=== PATIENT | female | born 1980 | race Caucasian/White ===

== ENCOUNTER 2017-09-21 10:46 | Emergency (ER) | payer OTHER, SELFPAY ==
[2017-09-21 12:13] VITALS: BP 143/89; PULSE 104; RESP 20; TEMP 36.9; O2SAT 97; BMI 32.9
[2017-09-21 12:24] LABS: UTC Influenza A Antigen Positive (Negative); UTC Influenza B Antigen Negative (Negative)
--- NOTE | 2017-09-21 12:27 | HMH.EDUTC ---
[facility] [place] Impression: Influenza Disposition: Home, Self-Care Condition on Discharge: Good Instructions: Influenza, Cough Additional Instructions: ? Start Tamiflu today if you are going to take it. Discussed risk and possible benefits. ? Lots of rest ? Increase Fluids water, Gatorade, powerade, pedialyte,if /toddler/child ? Alternate Tylenol and / or ibuprofen as discussed for fever, aches, chills x 24 hours without medication for symptoms ? Follow up IMMEDIATELY for new or worsening Symptoms OR no noticeable improvement over the next 48-72 hours, 911 for difficulty or breathing ? You or your child area contagious until no fever, aches, chills for 24 hours with medication for symptoms Prescriptions: Brompheniramine/Pseudoephed/Dm [Bromfed DM Cough Syrup 5mL] 10 ml PO Q4H PRN #200 syrup PRN Reason: Cough Oseltamivir Phosphate [Tamiflu 75mg Capsule] 75 mg PO BID #10 capsule Referrals: Alesia Nelson APRN [Primary Care Provider] - Time of Disposition: 12:41 Medical Decision Making Vital Signs: 09/21/17 12:13 Temperature 98.5 F Temperature Source Temporal Artery Scan Pulse Rate [Right] 104 H Respiratory Rate 20 Blood Pressure [Right Arm] 143/89 Blood Pressure Mean [Right Arm] 107 Blood Pressure Source [Right Arm] Automatic Cuff Blood Pressure Position [Right Arm] Sitting 02 Sat by Pulse Oximetry 97 Oxygen Delivery Method Room Air - Lab Data Lab Results 09/21/17 12:23: Influenza Type A Ag Positive A, Influenza Type B Ag Negative - Timothy Inquiry Pt receiving controlled substance: No Timothy was queried for this patient: No [facility] [place] - General Stated complaint: sore throat headache aches Mode of Arrival: Family Vehicle Source of Information: Patient Limitations: No Limitations Description of Symptoms (Recalled from Triage Doc. by RN): COUGH, CONGESTION X2 DAYS HEENT Symptoms (Recalled from RN notes): Yes Resp Symptoms (Recalled from RN notes): No Skin Symptoms (Recalled from RN notes): No MS Symptoms (Recalled from RN notes): No Functional Status (Recalled from RN notes): NA - History of Present Illness Provider Complaint: Patient states that she has been taking care of her parents for the last 3 days that have had the flu States that she is now having flu like symptoms also Severity: mild Severity scale (1-10): 1 Relieving factors: none Exacerbating factors: none Treatments prior to arrival: NSAID - Related Data Previous Rx's Medication Instructions Recorded Brompheniramine/Pseudoephed/Dm 10 ml PO Q4H PRN #200 syrup 09/21/17 [Bromfed DM Cough Syrup 5mL] Oseltamivir Phosphate [Tamiflu 75 mg PO BID #10 capsule 09/21/17 75mg Capsule] Allergies Allergy/AdvReac Type Severity Reaction Status Date / Time No Known Allergies Allergy Unknown Uncoded 09/06/17 14:05 - Worker's Comp Is this a Worker's Comp case?: No [facility] History - *Social History Alcohol Intake: never - Psychiatric History Expresses thoughts of harming self/others: None Suicide Plan Description: No Plan - Constitutional Reports chills, Reports fever(s) - ENT Reports nasal congestion - Respiratory Reports cough Physical Exam - General General appearance: alert, in no apparent distress - Expanded ENT Exam Comment: Throat red, irritated drainage noted - Respiratory Respiratory exam: Present: normal lung sounds bilaterally. Absent: respiratory distress - Cardiovascular Cardiovascular exam: Present: regular rate, normal rhythm. Absent: JVD - Neurological Exam Neurological exam: Present: alert, oriented X3
--- NOTE | 2017-09-21 12:33 | ED_ITS ---
[facility] [place]: [place]enza Disposition: Home, Self-Care Condition on Discharge: Good Instructions: Influenza, Cough Additional Instructions: ? Start Tamiflu today if you are going to take it. Discussed risk and possible benefits. ? Lots of rest ? Increase Fluids water, Gatorade, powerade, pedialyte,if /toddler/child ? Alternate Tylenol and / or ibuprofen as discussed for fever, aches, chills x 24 hours without medication for symptoms ? Follow up IMMEDIATELY for new or worsening Symptoms OR no noticeable improvement over the next 48-72 hours, 911 for difficulty or breathing ? You or your child area contagious until no fever, aches, chills for 24 hours with medication for symptoms Prescriptions: Brompheniramine/Pseudoephed/Dm [Bromfed DM Cough Syrup 5mL] 10 ml PO Q4H PRN # 200 syrup PRN Reason: Cough Oseltamivir Phosphate [Tamiflu 75mg Capsule] 75 mg PO BID #10 capsule Referrals: Alesia Nelson APRN [Primary Care Provider] - Time of Disposition: 12:41 Medical Decision Making Vital Signs: 09/21/17 12:13 Temperature 98.5 F Temperature Source Temporal Artery Scan Pulse Rate [Right] 104 H Respiratory Rate 20 Blood Pressure [Right Arm] 143/89 Blood Pressure Mean [Right Arm] 107 Blood Pressure Source [Right Arm] Automatic Cuff Blood Pressure Position [Right Arm] Sitting 02 Sat by Pulse Oximetry 97 Oxygen Delivery Method Room Air - Lab Data Lab Results 09/21/17 12:23: Influenza Type A Ag Positive A, Influenza Type B Ag Negative - Timothy Inquiry Pt receiving controlled substance: No Timothy was queried for this patient: No [facility] [place] - General Stated complaint: sore throat headache aches Mode of Arrival: Family Vehicle Source of Information: Patient Limitations: No Limitations Description of Symptoms (Recalled from Triage Doc. by RN): COUGH, CONGESTION X2 DAYS HEENT Symptoms (Recalled from RN notes): Yes Resp Symptoms (Recalled from RN notes): No Skin Symptoms (Recalled from RN notes): No MS Symptoms (Recalled from RN notes): No Functional Status (Recalled from RN notes): NA - History of Present Illness Provider Complaint: Patient states that she has been taking care of her parents for the last 3 days that have had the flu States that she is now having flu like symptoms also Severity: mild Severity scale (1-10): 1 Relieving factors: none Exacerbating factors: none Treatments prior to arrival: NSAID - Related Data Previous Rx's Medication Instructions Recorded Brompheniramine/Pseudoephed/Dm 10 ml PO Q4H PRN #200 syrup 09/21/17 [Bromfed DM Cough Syrup 5mL] Oseltamivir Phosphate [Tamiflu 75 mg PO BID #10 capsule 09/21/17 75mg Capsule] Allergies Allergy/AdvReac Type Severity Reaction Status Date / Time No Known Allergies Allergy Unknown Uncoded 09/06/17 14:05 - Worker's Comp Is this a Worker's Comp case?: No [facility] History - *Social History Alcohol Intake: never - Psychiatric History Expresses thoughts of harming self/others: None Suicide Plan Description: No Plan - Constitutional Reports chills, Reports fever(s) - ENT Reports nasal congestion - Respiratory Reports cough Physical Exam - General General appearance: alert, in no apparent distress - Expanded EN
[2017-09-21 12:57] VITALS: BP 145/76; PULSE 78; RESP 16; O2SAT 97
== END 2017-09-21 12:58 | disposition home or self-care (01) ==
PROVIDERS: Emergency Provider Nurse Practitioner; PCP Nurse Practitioner
DX: J10.1 Influenza due to other identified influenza virus with other respiratory manifestations (principal)
CPT/HCPCS: 87276; 87804; 99202

== ENCOUNTER → 2018-07-19 14:37 | Outpatient (CLI) | payer BC, SELFPAY ==
--- NOTE | 2018-07-19 14:44 | CT_ITS ---
CT abdomen pelvis w con CLINICAL INDICATION: Right lower quadrant pain, right flank pain ITS.REASON: RT QUAD/FLANK PAIN ORDERING PHYSICIAN: Alesia Nelson PATIENT AGE: 38 years COMPARISON: None TECHNIQUE: Axial images obtained with sagittal and coronal reformats. All CT scans at the facility use one or more dose reduction, viz: automated exposure control, ma/kV adjustment per patient size (including targeted exams where dose is matched to indication, i.e. head), or iterative reconstruction technique. PROCEDURE: Oral Contrast: None IV Contrast: 75 mL's of Isovue-370. FINDINGS: Lung bases are clear. There is a 5 mm hypodensity in the right hepatic lobe medially and an ill-defined 9 mm area of decreased attenuation in the left hepatic lobe laterally. The latter area is in region of the fissure for the ligamentum teres and could be due to focal fatty infiltration. Spleen, adrenal glands, pancreas, and kidneys have an unremarkable appearance. No radiopaque gallstones are evident. No evidence of appendicitis. No intestinal obstruction or free air. Is a 2.4 cm area of decreased attenuation in the right aspect of the lower uterine segment of the cervix and could be related to a fibroid. Pelvic ultrasound may confirm. No abnormal fluid collections or focal inflammatory change in the pelvis. There is a Schmorl's node in the superior endplate of L1. IMPRESSION: 1. No acute abdominal or pelvic findings. 2. Incidental nonacute findings as detailed above 3. Possible fibroid of the lower uterine segment on the right which may be confirmed with ultrasound
== END ==
PROVIDERS: PCP Nurse Practitioner; Visit Provider Nurse Practitioner
DX: R10.31 Right lower quadrant pain (principal); R10.11 Right upper quadrant pain
CPT/HCPCS: 74177; Q9967

== ENCOUNTER 2018-10-06 10:52 | Outpatient (CLI) | payer BC, SELFPAY ==
[2018-10-06 11:20] VITALS: BP 146/86; PULSE 68; RESP 20; TEMP 36.9; O2SAT 95
[2018-10-06 12:20] VITALS: BP 142/82; PULSE 91; RESP 20; TEMP 36.9; O2SAT 95
[2018-10-06 13:20] VITALS: BP 140/78; PULSE 99; RESP 20
== END 2018-10-06 13:25 | disposition home or self-care (01) ==
LOC: INF 10:54
PROVIDERS: PCP Family Medicine; Visit Provider Nurse Practitioner Family
DX: E86.0 Dehydration (principal)
CPT/HCPCS: 96360; 96361

== ENCOUNTER → 2018-10-09 11:13 | Outpatient (CLI) | payer BC, SELFPAY ==
[2018-10-09 12:11] LABS: Basophils # 0.1 K/mm3 (0-0.2); Basophils % 0.8 % (0.1-2.0); Eosinophils # 0.2 K/mm3 (0.0-0.4); Eosinophils % 1.9 % (0.1-12.0); Hematocrit 41.7 % (37.0-47.0); Lymphocytes # 1.3 K/mm3 (0.7-4.5); Lymphocytes % 15.8 % (10-50); Mean Corpuscular HGB Conc 31.2 g/dL (31.8-35.4); Mean Corpuscular Hemoglobin 27.4 pg (27.0-31.2); Mean Corpuscular Volume 87.9 fl (81-99); Monocytes # 0.5 K/mm3 (0.1-1.0); Monocytes % 5.9 % (1.7-9.3); Neutrophils # 6.1 K/mm3 (1.8-7.8); Neutrophils % 75.7 % (37.0-80.0); Platelet Count 333 K/mm3 (142-424); Red Blood Count 4.75 M/mm3 (4.20-5.40); Red Cell Distribution Width 14.8 % (11.5-17.5); White Blood Count 8.1 K/mm3 (4.8-10.8)
[2018-10-09 12:48] LABS: Alanine Aminotransferase 27 U/L (12-78); Albumin Level 3.9 gm/dL (3.4-5.0); Albumin/Globulin Ratio 1.1 (1.1-1.8); Alkaline Phosphatase 85 U/L (46-116); Anion Gap 14.5 mEq/L (5-15); Aspartate Amino Transferase 11 U/L (15-37); Bilirubin,Total 0.4 mg/dL (0.2-1.0); Blood Urea Nitrogen 15 mg/dL (7-18); Calcium 8.9 mg/dL (8.5-10.1); Carbon Dioxide 26 mmol/L (21.0-32.0); Chloride 103 mmol/L (98-107); Creatinine,Serum 0.77 mg/dL (0.55-1.02); Estimated Glomerular Filt Rate 84 ml/min (>60); GFR (African American) 102 ML/MIN (>60); Globulin 3.6 gm/dl (1.3-3.2); Glucose 94 mg/dL (74-106); Potassium 4.5 mmoL/L (3.5-5.1); Sodium 139 mmol/L (136-145); Total Protein,Serum 7.5 gm/dL (6.4-8.2)
[2018-10-10 08:29] LABS: Adenovirus F 40/41, stool Not Detected (NotDetected); Astrovirus Not Detected (NotDetected); Campylobacter Not Detected (NotDetected); Clostridium Difficile A/B, PCR Not Detected (NotDetected); Cryptosporidium Not Detected (NotDetected); Cyclospora Cayetanesis Not Detected (NotDetected); Entamoeba histolytica Not Detected (NotDetected); Enteroaggregative E coli Not Detected (NotDetected); Enteropathogenic E coli Not Detected (NotDetected); Enterotoxigenic E coli Not Detected (NotDetected); Giardia lamblia Not Detected (NotDetected); Norovirus Not Detected (NotDetected); Plesimonas Shigalloides, PCR Not Detected (NotDetected); Rotavirus A Not Detected (NotDetected); Salmonella, PCR Not Detected (NotDetected); Sapovirus Not Detected (NotDetected); Shiga-like toxin E coli Not Detected (NotDetected); Shigella Enterovasive E coli Not Detected (NotDetected); Vibrio Cholerae Not Detected (NotDetected); Vibrio, PCR Not Detected (NotDetected); Yersinia Entercolitica, PCR Not Detected (NotDetected)
== END ==
PROVIDERS: Visit Provider Nurse Practitioner Family
DX: R19.7 Diarrhea, unspecified (principal); R11.2 Nausea with vomiting, unspecified
CPT/HCPCS: 36415; 80053; 85025; 87507

== ENCOUNTER → 2018-10-09 20:20 | Outpatient (CLI) | payer BC, SELFPAY | PROVIDERS: Visit Provider Nurse Practitioner Family | DX: R19.7 Diarrhea, unspecified (principal) ==

== ENCOUNTER → 2018-10-12 08:18 | Outpatient (CLI) | payer BC, SELFPAY ==
--- NOTE | 2018-10-12 08:27 | US_ITS ---
US abdomen limited History:Right-sided abdominal pain, nausea and vomiting after eating Ordering Physician:Alesia Nelson Patient Age: 38 years Comparison:None Findings: Pancreas:Unremarkable. No obvious mass or abnormal fluid collection. No ductal dilatation Liver:No focal liver lesions demonstrated. Homogeneous echogenicity. No intrahepatic biliary ductal dilatation evident Right Kidney:Unremarkable. Normal size and echogenicity. No hydronephrosis Gallbladder:No gallstones, gallbladder wall thickening, pericholecystic fluid, or biliary dilatation. Impression:Negative gallbladder/right upper quadrant ultrasound
== END ==
PROVIDERS: PCP Nurse Practitioner; Visit Provider Nurse Practitioner
DX: R19.7 Diarrhea, unspecified (principal); R11.2 Nausea with vomiting, unspecified
CPT/HCPCS: 76705

== ENCOUNTER → 2018-11-01 09:03 | Outpatient (CLI) | payer BC, SELFPAY ==
--- NOTE | 2018-11-01 09:08 | US_ITS ---
US transvaginal HISTORY: Pelvic pain, dysfunctional uterine bleeding, abnormal CT scan of 07/19/2018 suggesting a fibroid ITS.REASON: DUB ORDERING PHYSICIAN: Swapna Moore PATIENT AGE: 38 years Comparison: 07/19/2018 FINDINGS: The uterus is anteverted. Endometrium is upper normal in thickness at 11 mm. The uterus measures 8 x 5 x 5 cm. There are multiple nabothian cysts which may account for the abnormality noted on the CT scan. No obvious uterine mass. The right ovary is 2.5 x 2.8 x 1.8 cm and contains a 15 mm follicle. The left ovary is 3 x 1.8 cm and contains a 10 mm follicle. No cul-de-sac fluid evident. IMPRESSION: 1. Endometrial thickness upper limits of normal. 2. Nabothian cysts. 3. Small bilateral ovarian follicular cysts
--- NOTE | 2018-11-01 09:08 | NM_ITS ---
NM hepatobiliary wo pharm HISTORY: Nausea and vomiting with right upper quadrant pain ITS.REASON: N/V , RUQ PAIN ORDERING PHYSICIAN: Swapna Moore PATIENT AGE: 38 years COMPARISON: None DOSE: 8.62 mCi technetium Choletec. 1.9 mcg of CCK. No pain reported with CCK. FINDINGS: Homogeneous activity is present within the hepatic parenchyma. Activity is present in the gallbladder by 10 minutes. Activity is present in the small bowel by 10 minutes. The gallbladder ejection fraction is calculated to be percent The patient did not report pain or other symptoms during CCK infusion. IMPRESSION: Unremarkable hepatobiliary scan and gallbladder ejection fraction. No evidence of common or cystic duct obstruction with normal gallbladder ejection fraction
== END ==
PROVIDERS: PCP Nurse Practitioner Family; Visit Provider Nurse Practitioner Family
DX: R11.2 Nausea with vomiting, unspecified (principal); R10.11 Right upper quadrant pain; N93.9 Abnormal uterine and vaginal bleeding, unspecified
CPT/HCPCS: 76830; 78226; A9537

== ENCOUNTER → 2018-11-20 14:46 | Outpatient (CLI) | payer BC, SELFPAY ==
[2018-11-20 14:51] LABS: Microscopic, Urine URINE MICROSCOPIC (MICROSCOPIC)
[2018-11-20 15:04] LABS: Basophils # 0.1 K/mm3 (0-0.2); Basophils % 0.9 % (0.1-2.0); Eosinophils # 0.2 K/mm3 (0.0-0.4); Eosinophils % 1.7 % (0.1-12.0); Hematocrit 39.9 % (37.0-47.0); Hemoglobin 12.8 g/dL (12.2-16.2); Lymphocytes # 1.9 K/mm3 (0.7-4.5); Lymphocytes % 18.7 % (10-50); Mean Corpuscular Hemoglobin 27.8 pg (27.0-31.2); Mean Corpuscular Volume 86.9 fl (81-99); Mean Platelet Volume 8.4 fl (7.4-10.4); Monocytes # 0.6 K/mm3 (0.1-1.0); Monocytes % 6.3 % (1.7-9.3); Neutrophils # 7.2 K/mm3 (1.8-7.8); Neutrophils % 72.4 % (37.0-80.0); Platelet Count 316 K/mm3 (142-424); Red Blood Count 4.59 M/mm3 (4.20-5.40); Red Cell Distribution Width 13.9 % (11.5-17.5)
[2018-11-20 15:59] LABS: Alanine Aminotransferase 26 U/L (12-78); Albumin Level 3.6 gm/dL (3.4-5.0); Alkaline Phosphatase 87 U/L (46-116); Anion Gap 13.2 mEq/L (5-15); Aspartate Amino Transferase 7 U/L (15-37); Bilirubin,Total 0.2 mg/dL (0.2-1.0); Blood Urea Nitrogen 19 mg/dL (7-18); Calcium 9.4 mg/dL (8.5-10.1); Carbon Dioxide 28 mmol/L (21.0-32.0); Chloride 106 mmol/L (98-107); Creatinine,Serum 0.74 mg/dL (0.55-1.02); Estimated Glomerular Filt Rate 88 ml/min (>60); GFR (African American) 107 ML/MIN (>60); Globulin 3.5 gm/dl (1.3-3.2); Glucose 89 mg/dL (74-106); Potassium 4.2 mmoL/L (3.5-5.1); Sodium 143 mmol/L (136-145); Total Protein,Serum 7.1 gm/dL (6.4-8.2)
[2018-11-20 16:43] LABS: Appearance,Urine SL CLOUDY (Clear); Bilirubin,Urine Negative (Negative); Blood, Urine Negative (Negative); Color,Urine YELLOW (Yellow); Glucose,Urine (UA) Negative (Negative); Ketones,Urine TRACE (Negative); Leukocyte Esterase,Urine Negative (Negative); Nitrate,Urine Negative (Negative); Protein,Urine Negative (Negative); Specific Gravity, Urine 1.025 (1.005-1.030); Urobilinogen,Urine 0.2 EU/dl (0.2)
[2018-11-20 16:45] LABS: Urine Pregnancy, HCG Qual. Negative (Negative)
[2018-11-20 16:59] LABS: Bacteria,Urine 2+ /lpf; Mucus,Urine 4+ /lpf; Squamous Epithelial Cell,Urine 20-50 #/hpf (0-5); WBC,Urine Occasional #/hpf (0-3)
== END ==
PROVIDERS: Visit Provider Obstetrics & Gynecology
DX: Z01.818 Encounter for other preprocedural examination (principal); R10.2 Pelvic and perineal pain; N93.8 Other specified abnormal uterine and vaginal bleeding
CPT/HCPCS: 36415; 80053; 81001; 81025; 85025; 87086

== ENCOUNTER → 2019-06-18 10:10 | Outpatient (CLI) | payer BC, SELFPAY ==
--- NOTE | 2019-06-18 10:17 | XR_ITS ---
PROCEDURE: XR SHOULDER LT MIN 2V CLINICAL INDICATION: LT SHOULDER PAIN,NUMBNESS COMPARISON: No exams were available for comparison FINDINGS: Bone density, joint spaces and alignment and soft tissues are normal. There is no acute fracture. IMPRESSION: No acute process. Dictated by: Vinay Del Cid 06/18/2019 12:36 Electronically signed by Vinay Del Cid in [place] 06/18/2019 12:36
== END ==
PROVIDERS: PCP Nurse Practitioner Family; Visit Provider Nurse Practitioner Family
DX: M25.512 Pain in left shoulder (principal); R20.0 Anesthesia of skin
CPT/HCPCS: 73030

== ENCOUNTER → 2019-06-28 09:40 | Outpatient (CLI) | payer BC, SELFPAY ==
--- NOTE | 2019-06-28 09:46 | XR_ITS ---
PROCEDURE: XR MULTIPLE SPINE 6+V CLINICAL INDICATION: UPPER BACK PAIN, LT ARM NUMBNESS, neck pain, left arm pain and numbness COMPARISON: No exams were available for comparison FINDINGS: Cervical spine: Five views: Mild degenerative disc disease C5-C6 and C6-C7. Normal alignment. No fracture or dislocation. No lytic or blastic change. The neck is slightly tilted toward the right. The foramina are widely patent. No cervical rib. Thoracic spine three views: Minimal thoracic curvature convex left with degenerative disc disease in the midthoracic spine.. No acute fracture or dislocation IMPRESSION: Degenerative changes as described above Dictated by: Bjorn Burnette MD 06/28/2019 17:51 Electronically signed by Bjorn Burnette MD in [facility] 06/28/2019 17:51
== END ==
PROVIDERS: PCP Nurse Practitioner Family; Visit Provider Nurse Practitioner Family
DX: M54.9 Dorsalgia, unspecified (principal); R20.0 Anesthesia of skin
CPT/HCPCS: 72084

== ENCOUNTER → 2019-08-27 12:36 | Outpatient (CLI) | payer BC, SELFPAY ==
--- NOTE | 2019-08-27 12:41 | XR_ITS ---
PROCEDURE: XR SHOULDER LT MIN 2V CLINICAL INDICATION: Shoulder pain Left shoulder pain with limited range of motion COMPARISON: XR SHOULDER LT MIN 2V from 06/18/2019 FINDINGS: No fracture, dislocation, lytic change, or blastic change evident. No significant degenerative change. There are minimal hypertrophic changes of the distal aspect of the a chromium superiorly. No subacromial stenosis. No significant change from 06/18/2019. IMPRESSION: No acute findings. Dictated by: Bjorn Burnette MD 08/27/2019 17:45 Electronically signed by Bjorn Burnette MD in [facility] 08/27/2019 17:45
== END ==
PROVIDERS: PCP Nurse Practitioner Family; Visit Provider Orthopaedic Surgery
DX: M25.512 Pain in left shoulder (principal)
CPT/HCPCS: 73030

== ENCOUNTER → 2019-08-31 14:15 | Outpatient (CLI) | payer BC, SELFPAY ==
--- NOTE | 2019-08-31 14:16 | MR_ITS ---
PROCEDURE: MR CERVICAL SPINE WO CON CLINICAL INDICATION: Neck/Shoulder pain Left arm and shoulder pain, left arm numbness and tingling COMPARISON: XR MULTIPLE SPINE 6+V from 06/28/2019 TECHNIQUE: Standard multiplanar multiecho sequences are performed without contrast. 3-D MIP and myelographic images are also rendered and reviewed FINDINGS: There is slight reversal cervical lordosis which could be due to patient positioning or muscle spasm. Craniocervical junction has an unremarkable appearance. C2-C3: Unremarkable. C3-C4: Unremarkable. C4-C5: Unremarkable. C5-C6 and C6-C7: There is degenerative disc disease. There is what appears to be prominent thickening of the posterior longitudinal ligament at C5-6, the body of C6, and C6-C7. This is most prominent at the C6-C7 level. This is slightly eccentric to the right and is causing severe canal stenosis of 7 mm along with bilateral lateral recess narrowing right more extensive than left. There is mild compression upon the anterior aspect of the cord from C5-C6 to C6-C7. C7-T1: Unremarkable. IMPRESSION: There is what appears to be prominent thickening of the posterior longitudinal ligament from C5-C6 to C6-C7. This is causing canal stenosis of 7 mm at both levels with mild compression upon the anterior aspect of the cord. This is slightly eccentric to the right at C6-C7 with bilateral lateral recess narrowing right more severe than left. I suppose this could also represent some type of atypical extruded disc herniation. There is reversal of the cervical lordosis which may be due to patient positioning or muscle spasm. Dictated by: Bjorn Burnette MD 08/31/2019 16:35 Electronically signed by Bjorn Burnette MD in [facility] 08/31/2019 16:35
== END ==
PROVIDERS: PCP Nurse Practitioner Family; Visit Provider Orthopaedic Surgery
DX: M54.12 Radiculopathy, cervical region (principal)
CPT/HCPCS: 72141; 76376

== ENCOUNTER → 2019-09-06 14:53 | Outpatient (POV) | payer BC, SELFPAY | PROVIDERS: Visit Provider Neurological Surgery | DX: Z00.00 Encounter for general adult medical examination without abnormal findings (principal) ==

== ENCOUNTER 2019-10-19 08:00 | Outpatient (RCR) | payer BC, SELFPAY | END 2019-10-19 08:05 | disposition home or self-care (01) | LOC: PT 08:00 | PROVIDERS: Visit Provider Neurological Surgery | DX: M50.10 Cervical disc disorder with radiculopathy, unspecified cervical region (principal) | CPT/HCPCS: 20560; 97010; 97012; 97014; 97035; 97110; 97140; 97163; G0283 ==

== ENCOUNTER → 2020-10-14 14:54 | Outpatient (CLI) | payer BC, SELFPAY ==
[2020-10-14 16:06] LABS: Monoscreen (Rapid) Negative (Negative)
[2020-10-16 08:11] LABS: Covid-19 Nasal PCR Sendout P&C Negative
== END ==
PROVIDERS: PCP Nurse Practitioner Family; Visit Provider Nurse Practitioner Family
DX: Z20.822 Contact with and (suspected) exposure to COVID-19 (principal); J02.9 Acute pharyngitis, unspecified
CPT/HCPCS: 36415; 86318; U0004

== ENCOUNTER → 2021-03-03 08:44 | Outpatient (CLI) | payer BC, SELFPAY ==
--- NOTE | 2021-03-03 08:44 | MM_ITS ---
PROCEDURE: MM DIG MAMM BI DX W/CAD Digital Breast Tomosynthesis Included Complete right breast ultrasound CLINICAL INDICATION: PALP AREA RIGHT BREAST/BASELINE COMPARISON: US US BREAST RT COMPLETE from 03/03/2021 TECHNIQUE: Standard CC and MLO images and 3D Tomosynthesis was obtained. R2 CAD reviewed. Digital spot compression CC and MLO views of the right breast were also obtained. FINDINGS: There are scattered fibroglandular elements which may obscure a lesion on mammography. No dominant mass or indirect evidence of malignancy. No suspicious type microcalcifications. Nothing to definitively correlate with a lump in the upper-outer quadrant of the right breast. Complete right breast ultrasound concentrating on the side of lump in the upper outer quadrant shows no discrete cyst or solid mass. No abnormal vascularity. Single benign-appearing lymph node in the right axilla noted. IMPRESSION: Normal bilateral baseline digital diagnostic mammograms and normal right breast ultrasound. Nothing to definitively correlate with a lump in the upper-outer quadrant of the right breast. Therefore a clinical evaluation by clinical breast resident care technician is recommended. From an imaging standpoint, bilateral digital screening mammograms in 1 year are recommended. BI-RAD Category: 1 Negative FOLLOW-UP: 1 YR 1 Year Follow-up. In addition, a clinical evaluation by a clinical breast resident care technician for further evaluation of the right breast lump is recommended. (A letter has been sent to the patient regarding results of the study.) Dictated by: Red Donald MD 03/05/2021 08:57 Red Donald MD in [place] 03/05/2021 08:57
--- NOTE | 2021-03-03 08:44 | US_ITS ---
PROCEDURE: US TRANSVAGINAL CLINICAL INDICATION: pelvic pain COMPARISON: US TRANVAG US transvaginal from 11/01/2018 FINDINGS: UTERUS: 6cm x 5cmx 4cm with a combined endometrial thickness of 5.2mm LEFT OVARY: [id number] with a volume of 6.8ml. RIGHT OVARY: 3cmx [id number] with a volume of 4.4ml. Small cluster of cervical nabothian cysts again noted similar to prior exam. Small calcification noted on the left ovary. Ovaries are otherwise normal. No free fluid in the posterior cul-de-sac or pelvis. IMPRESSION: Small cluster of cervical nabothian cysts again noted. Otherwise unremarkable transvaginal ultrasound. Dictated by: Red Donald MD 03/03/2021 14:13 Red Donald MD in [facility] 03/03/2021 14:13
== END ==
LOC: RAD 08:44
PROVIDERS: PCP Nurse Practitioner Family; Visit Provider Obstetrics & Gynecology
DX: R10.2 Pelvic and perineal pain (principal); N63.10 Unspecified lump in the right breast, unspecified quadrant
CPT/HCPCS: 76641; 76830; 77062; 77063; 77066; 77067; G0279

== ENCOUNTER → 2021-04-01 16:05 | Outpatient (CLI) | payer BC, SELFPAY ==
[2021-04-01 16:36] LABS: Basophils # 0.1 K/mm3 (0-0.2); Basophils % 0.7 % (0.1-2.0); Eosinophils # 0.2 K/mm3 (0.0-0.4); Eosinophils % 1.5 % (0.1-12.0); Hematocrit 39.6 % (37.0-47.0); Lymphocytes # 2.8 K/mm3 (0.7-4.5); Lymphocytes % 23.5 % (10-50); Mean Corpuscular HGB Conc 32.9 g/dL (31.8-35.4); Mean Corpuscular Hemoglobin 28.3 pg (27.0-31.2); Mean Corpuscular Volume 86.2 fl (81-99); Mean Platelet Volume 8.2 fl (7.4-10.4); Monocytes # 0.7 K/mm3 (0.1-1.0); Monocytes % 5.6 % (1.7-9.3); Neutrophils # 8.1 K/mm3 (1.8-7.8); Neutrophils % 68.8 % (37.0-80.0); Platelet Count 283 K/mm3 (142-424); Red Blood Count 4.59 M/mm3 (4.20-5.40); Red Cell Distribution Width 13.5 % (11.5-17.5); White Blood Count 11.8 K/mm3 (4.8-10.8)
[2021-04-01 16:51] LABS: Amphetamine/Metha Screen,Urine Negative ng/ml (<1000); Barbiturates Screen,Urine Negative ng/ml (<200)
[2021-04-01 16:52] LABS: Benzodiazepines Screen,Urine Negative ng/ml (<200)
[2021-04-01 16:53] LABS: Cannabinoid Screen,Urine Negative ng/ml (<50); Cocaine Screen,Urine Negative ng/ml (<300)
[2021-04-01 16:54] LABS: Methadone Screen,Urine Negative ng/ml (<300); Opiate Screen,Urine Negative ng/ml (<300)
[2021-04-01 16:55] LABS: Phencyclidine Screen,Urine Negative ng/ml (<25)
[2021-04-01 17:19] LABS: HCG Qualitative, Serum Negative (Negative)
[2021-04-01 17:24] LABS: Alanine Aminotransferase 24 U/L (12-78); Albumin Level 4.5 g/dl (3.5-5.0); Albumin/Globulin Ratio 1.6 (1.1-1.8); Alkaline Phosphatase 85 U/L (38-126); Anion Gap 13.6 mEq/L (5-15); Aspartate Amino Transferase 20 U/L (14-36); Bilirubin,Total 0.3 mg/dl (0.2-1.3); Blood Urea Nitrogen 15 mg/dl (7-17); Calcium 9.5 mg/dl (8.4-10.2); Carbon Dioxide 28 mmol/L (22.0-30.0); Chloride 102 mmol/L (98-107); Estimated Glomerular Filt Rate 79 ml/min (>60); GFR (African American) 96 ML/MIN (>60); Globulin 2.9 g/dL (1.3-3.2); Glucose 96 mg/dl (74-100); Potassium 4.6 mmoL/L (3.5-5.1); Sodium 139 mmol/L (136-145); Total Protein,Serum 7.4 g/dl (6.3-8.2)
== END ==
PROVIDERS: Visit Provider Obstetrics & Gynecology
DX: Z01.812 Encounter for preprocedural laboratory examination (principal); Z11.52 Encounter for screening for COVID-19; N93.8 Other specified abnormal uterine and vaginal bleeding
CPT/HCPCS: 36415; 80053; 80305; 84703; 85025; U0003

== ENCOUNTER 2021-04-03 06:49 | Day surgery (SDC) | payer BC, SELFPAY ==
[2021-04-01 11:36] VITALS: BMI 36.1
[2021-04-03] VITALS (11 sets, daily range): BP systolic 99–145; BP diastolic 68–91; PULSE 84–106; RESP 16–18; TEMP 36.4–37.2; O2SAT 95–100
--- NOTE | 2021-04-03 07:32 | P.PN_ITS ---
[facility] Anesthesia Checklist - Patient Identification Patient Identification: Arm Band - Structural Data Admitted From: Home Planned Operative Procedure/s: Hysteroscopy Consent for Planned Operative Procedure(s) Verified: Yes - NPO Status Verified Time NPO: 00:00 - Additional verifications Anesthesia Reactions: No Hx Blood Transfusions: No Blood Transfusion Reaction: Yes - Airway Assessment C-Spine Mobility Assessed: Yes TMJ Mobility Assessed: Yes Dentition: Good Dentition - Neurological Assessment Level of Consciousness: Awake Hx Seizures: No Numbness or tingling in extremities: No - Anesthesia Plan Anesthesia Risk discussed: Yes Anesthesia Plan: Verified ASA Class: II Anesthesia Type: General [facility] History I have reviewed the patient's past medical history: Yes Medical History: Reports:: Depression, Gastroesophageal Reflux Disease(GERD), Hypertension, Kidney Stones, Migraine Denies:: Diabetes Mellitus Type 1, Diabetes Mellitus Type 2, Internal Pacemaker, MRSA, Seizures *Have you ever received a pneumonia vaccine?: No *Have you received a flu vaccine this season?: No Other Medical History: Reports: Blood Transfusion Reaction, Other Anesthesia experience/problems:: None Laterality Cases: Right: Other Other Surgeries: Yes: Other. No: Pacemaker Amputation: No Fractures: No - *Social History Last grade of school completed: Advanced degree Smoking Status: Never smoker Alcohol Intake: never Alcohol Intake Frequency:: other Substance Use Type: denies use *Occupational Status:: employed Housing: house Household Members: family *Travel in the last 8 weeks: None - Psychiatric History Pschychiatric History:: Reports:: Depression Family Hx:: No significant family history
--- NOTE | 2021-04-03 09:30 | HMH.ANESI ---
[facility] Anesthesia Record Part I Intake, IV Amount: 300 Estimated blood loss (mL): 5 Urine output (mL): 0 Blood Pressure: 105/70 SaO2: 95 Pulse Rate: 90 Respiratory Rate: 18 Temperature: 98.9 F Patient is:: Drowsy, Oral/Nasal airway Stable to PACU at:: 09:28
--- NOTE | 2021-04-03 10:10 | HMH.OPNOTE ---
Date of procedure: 04/03/21 Pre-op Diagnosis:: Dysfunctional uterine bleeding Heavy menstrual bleeding Post-op Diagnosis:: same Procedure performed:: D&C Hysteroscopy with Myosure excision of endometrial polyp Novasure Endometrial Ablation Surgeon:: Alla Holt MD DETECTIVE AND INTELLIGENCE ANALYST:: Sabi Ray Anesthesia: GETA Estimated blood loss (mL): 5 Operative findings:: endometrial polyp anterior cavity Operative note:: The patient was taken to the operating room and general anesthesia was administered. She was prepped/draped in lithotomy position. The anterior lip of the cervix was grasped with a single tooth tenaculum and the cervix was dilated with Goodman dilators of serially increasing size until the external os was able to accomodate the Myosure hysteroscope. The hysteroscope was advanced through the cervix and into the uterine cavity, which was distended with LR. Once the uterus was sufficiently distended, the cavity was evaluated and revealed shaggy endometrium and an anterior cavity lesion consistent with an endometrial polyp. The Myosure was inserted into the hysteroscope and the polyp was excised successfully and without complication or significant fluid deficit. After the conclusion of this procedure, the Myosure and hysteroscope were removed from the uterus. The uterine cavity sounded to a length of 4.5cm. The Novasure was inserted through the cervix and expanded to fit the width of the uterus, with a width of 3cm. After a successful cavity assessment, the device was deployed and the endometrial ablation was completed in 71 seconds. Once the device had turned off, the Novasure was removed from the uterus and the hysteroscope was reinserted into the uterine cavity. The cavity appeared diffusely cauterized. The hysteroscope was removed from the uterus and all instruments removed from the vagina. The tenaculum site was hemostatic. All sponge/lap/needle/instrument counts correct x2. Total EBL: 5 cc. The patient was taken out of lithotomy position, extubated and taken to the PACU in stable condition. Condition: stable Disposition: PACU Complications:: none
--- NOTE | 2021-04-03 10:27 | SUR.PHASEII ---
IBUPROFEN 600MG GIVEN PO PER STANDING ORDER FOR C/O PAIN AT 3.
--- NOTE | 2021-04-03 10:46 | PC.NURSE ---
voiding per bedpan
--- NOTE | 2021-04-03 17:40 | HMH.ANESII ---
[facility] Anesthesia Record Part II Discharge Time: 10:08 Destination: Surgical Day Care (OP Surgery) PACU nurse assessment reviewed?: Yes Patient Condition:: Good Anesthesia Complications:: None Swallowing reflex intact?: Yes Cyanosis?: No Blood Pressure: 124/91 Pulse Rate: 85 Temperature: 97.5 F Mental Status: Alert & Oriented Pain level:: 0 Nausea and/or vomitting:: None Intake, IV Amount: 0
== END 2021-04-03 10:35 | disposition home or self-care (01) ==
PROVIDERS: PCP Nurse Practitioner Family; Visit Provider Obstetrics & Gynecology
PROC: (CPT 58563; principal; 2021-04-03 08:30)
DX: N92.0 Excessive and frequent menstruation with regular cycle (principal); N93.8 Other specified abnormal uterine and vaginal bleeding; K21.9 Gastro-esophageal reflux disease without esophagitis; I10 Essential (primary) hypertension; G43.909 Migraine, unspecified, not intractable, without status migrainosus; Z87.442 Personal history of urinary calculi; Z79.899 Other long term (current) drug therapy
CPT/HCPCS: 58563; 96374; J2405

== ENCOUNTER → 2021-06-05 16:25 | Outpatient (CLI) | payer BC, SELFPAY ==
[2021-06-05 17:41] LABS: Activated Partial Thrombo Time 26.9 seconds (22.8-30.6); Prothrombin Time 10.7 seconds (10.1-12.5)
[2021-06-05 17:41] LABS: Basophils # 0.1 K/mm3 (0-0.2); Eosinophils # 0.2 K/mm3 (0.0-0.4); Eosinophils % 1.4 % (0.1-12.0); Hemoglobin 14.3 g/dL (12.2-16.2); Lymphocytes # 2.5 K/mm3 (0.7-4.5); Lymphocytes % 21.3 % (10-50); Mean Corpuscular HGB Conc 31.8 g/dL (31.8-35.4); Mean Corpuscular Volume 91.4 fl (81-99); Mean Platelet Volume 8.7 fl (7.4-10.4); Monocytes # 0.7 K/mm3 (0.1-1.0); Monocytes % 5.7 % (1.7-9.3); Neutrophils # 8.3 K/mm3 (1.8-7.8); Neutrophils % 70.6 % (37.0-80.0); Platelet Count 333 K/mm3 (142-424); Red Blood Count 4.92 M/mm3 (4.20-5.40); Red Cell Distribution Width 13.3 % (11.5-17.5); White Blood Count 11.7 K/mm3 (4.8-10.8)
[2021-06-05 19:40] LABS: Alanine Aminotransferase 30 U/L (12-78); Albumin Level 4.5 g/dl (3.5-5.0); Albumin/Globulin Ratio 1.5 (1.1-1.8); Alkaline Phosphatase 93 U/L (38-126); Anion Gap 13.5 mEq/L (5-15); Aspartate Amino Transferase 25 U/L (14-36); Bilirubin,Total 0.3 mg/dl (0.2-1.3); Blood Urea Nitrogen 15 mg/dl (7-17); Calcium 9.7 mg/dl (8.4-10.2); Carbon Dioxide 27 mmol/L (22.0-30.0); Chloride 101 mmol/L (98-107); Estimated Glomerular Filt Rate 93 ml/min (>60); GFR (African American) 112 ML/MIN (>60); Globulin 3.1 g/dL (1.3-3.2); Glucose 84 mg/dl (74-100); Potassium 4.5 mmoL/L (3.5-5.1); Sodium 137 mmol/L (136-145); Total Protein,Serum 7.6 g/dl (6.3-8.2)
[2021-06-05 20:11] LABS: Thyroid Stimulating Hormone 2.33 uIU/mL (0.465-4.68)
[2021-06-07 16:30] LABS: Peripheral Smear Review Scanned Result
== END ==
PROVIDERS: Visit Provider Nurse Practitioner Family
DX: R23.8 Other skin changes (principal)
CPT/HCPCS: 36415; 80053; 84443; 85025; 85610; 85730

== ENCOUNTER 2021-10-04 09:16 | Emergency (ER) | payer BC, SELFPAY ==
[2021-10-04 10:43] VITALS: BP 142/94; PULSE 94; RESP 18; TEMP 36.5; O2SAT 100; BMI 35.8
--- NOTE | 2021-10-04 10:45 | HMH.EDUTC ---
[facility] [place] Disposition Clinical Impression: Viral syndrome Disposition: Home, Self-Care Condition on Discharge: Good Instructions: DI for Viral Syndrome, Preventing the Spread of Coronavirus Discharge Instructions, DI for COVID-19 (Suspected or Confirmed ) Additional Instructions: Drink plenty of fluids. Take tylenol or ibuprofen for pain or fever. Take the medications as directed. Follow up with your regular doctor. GO TO THE ER FOR ANY WORSENING SYMPTOMS Quarantine until you know the results of your covid-19 test. If it is positive, the health department should call you and give you further instructions about your length of Quarantine and other things. Notify your school or workplace of your results and follow their instructions regarding return to work/school. The cough medication (promethazine dm) will make you drowsy, so don't drive or operate heavy machinery after taking it. Prescriptions: Promethazine/Dextromethorphan [Promethazine-Dm Syrup] 5 ml PO Q6HP PRN #240 ml PRN Reason: Cough Transmission Status: Pending to [facility] Ondansetron [Zofran 4mg ODT] 4 mg PO Q8HP PRN #20 tab PRN Reason: Nausea Transmission Status: Pending to [facility] Referrals: Swapna Moore APRN [Primary Care Provider] - Medical Decision Making - Medical Records Medical records reviewed: No: I reviewed the patient's medical records. - Timothy Inquiry Pt receiving controlled substance: No Vital Signs: 10/04/21 10:43 Temperature 97.7 F Temperature Source Oral Pulse Rate [Left] 94 H Respiratory Rate 18 Blood Pressure [Right Arm] 142/94 H Blood Pressure Mean [Right Arm] 110 02 Sat by Pulse Oximetry 100 Orders (Tests/Meds): ORDERS Category Date Time Status Covid-19 Nasal PCR ([facility]) Routine Lab 10/04/21 10:36 Received [facility] [place] HPI - General Stated complaint: covid symptoms Time Seen by Provider: 10/04/21 10:45 - History of Present Illness Provider Complaint: She states that she has had chilling, body aches, sore throat, dry cough, and chest congestion for the past 2 days. She has been fully vaccinated against covid-19. She has had a flu shot. - Related Data Home Medications Medication Instructions Recorded Confirmed losartan 50 mg tablet 50 mg PO DAILY 02/23/21 04/03/21 losartan 50 mg-hydrochlorothiazide 1 tab PO DAILY 02/23/21 04/03/21 12.5 mg tablet simvastatin 10 mg tablet 10 mg PO DAILY 02/23/21 04/03/21 Previous Rx's Medication Instructions Recorded Ondansetron [Zofran 4mg ODT] 4 mg PO Q8HP PRN #20 tab 10/04/21 Promethazine/Dextromethorphan 5 ml PO Q6HP PRN #240 ml 10/04/21 [Promethazine-Dm Syrup] Allergies Allergy/AdvReac Type Severity Reaction Status Date / Time diphenhydramine Allergy Verified 10/04/21 10:48 [From Tila] [facility] History - Hepatitis A Screen Attestation statement:: This patient has been screened for Hepatitis A risk factors. I have reviewed the patient's past medical history: Yes Medical History: Reports:: Cancer (r wrist), Depression, Gastroesophageal Reflux Disease(GERD), Hypertension, Kidney Stones, Migraine Denies:: Diabetes Mellitus Type 1, Diabetes Mellitus Type 2, Internal Pacemaker, MRSA, Seizures Other Medical History: Reports: Blood Transfusion Reaction, Other Comment: MIGRAINES. HIATAL HERNIA. HYPERTENSION. ACID REFLUX. SLEEP APNEA Laterality Cases: Right: Other Other Surgeries: Yes: Other. No: Pacemaker Amputation: No Fractures: No Comment: 11/23/18-Dx. LSC, D&C - Social History Smoking Status: Never smoker Alcohol Intake: never Alcohol Intake Frequency:: other Substance Use Type: denies use Occupational Status: employed Housing: house Household Members: family - Psychiatric History Pschychiatric History:: Reports:: Depression Family Hx:: No significant family history ROS Obtained: Yes All systems reviewed & no additional complaints - Constitutional Constitutional: Reports a
[2021-10-04 12:00] LABS: UTC Influenza A Antigen Negative (Negative)
[2021-10-04 12:01] LABS: UTC Influenza B Antigen Negative (Negative)
[2021-10-04 12:09] VITALS: BP 142/94; PULSE 94; RESP 18; TEMP 36.5
== END 2021-10-04 12:11 | disposition home or self-care (01) ==
PROVIDERS: Emergency Provider Nurse Practitioner Family; PCP Nurse Practitioner Family
DX: B34.9 Viral infection, unspecified (principal); Z20.822 Contact with and (suspected) exposure to COVID-19; I10 Essential (primary) hypertension; K21.9 Gastro-esophageal reflux disease without esophagitis
CPT/HCPCS: 87804; 99202; C9803; G0463; U0003; U0005

== ENCOUNTER → 2022-04-09 16:00 | Outpatient (CLI) | payer BC, SELFPAY ==
[2022-04-09 17:22] LABS: Alanine Aminotransferase 22 U/L (12-78); Albumin Level 4.2 g/dl (3.5-5.0); Albumin/Globulin Ratio 1.5 (1.1-1.8); Alkaline Phosphatase 80 U/L (38-126); Anion Gap 11.3 mEq/L (5-15); Aspartate Amino Transferase 19 U/L (14-36); Blood Urea Nitrogen 13 mg/dl (7-17); Calcium 9.4 mg/dl (8.4-10.2); Carbon Dioxide 26 mmol/L (22.0-30.0); Chloride 103 mmol/L (98-107); Chol/HDL Ratio 3.9 (1-3.5); Cholesterol 200 mg/dl (140-200); Estimated Glomerular Filt Rate 92 ml/min (>60); GFR (African American) 112 ML/MIN (>60); Globulin 2.8 g/dL (1.3-3.2); Glucose 95 mg/dl (74-100); HDL Cholesterol 51 mg/dl (40-60); Potassium 4.3 mmoL/L (3.5-5.1); Sodium 136 mmol/L (136-145); Triglycerides 137 mg/dl (30-150); VLDL Cholesterol 27 mg/dL (0-40)
[2022-04-09 17:27] LABS: Bilirubin,Total < 0.1 mg/dl (0.2-1.3)
[2022-04-09 17:33] LABS: Direct LDL Cholesterol 114.87 mg/dL (100-129)
== END ==
PROVIDERS: PCP Nurse Practitioner Family; Visit Provider Nurse Practitioner Family
DX: I10 Essential (primary) hypertension (principal); E78.5 Hyperlipidemia, unspecified
CPT/HCPCS: 36415; 80053; 80061

== ENCOUNTER → 2022-04-30 14:44 | Outpatient (CLI) | payer BC, SELFPAY | PROVIDERS: PCP Nurse Practitioner Family; Visit Provider Nurse Practitioner Family | DX: Z20.822 Contact with and (suspected) exposure to COVID-19 (principal); J02.9 Acute pharyngitis, unspecified; J06.9 Acute upper respiratory infection, unspecified | CPT/HCPCS: C9803; U0003; U0005 ==

== ENCOUNTER 2022-05-03 10:30 | Emergency (ER) | payer BC, SELFPAY ==
[2022-05-03 10:32] VITALS: BP 145/86; PULSE 97; RESP 20; TEMP 36.9; O2SAT 100; BMI 39.0
--- NOTE | 2022-05-03 10:40 | PC.NURSE ---
1040 COVID SWAB COLLECTED, PT TOLERATED WELL
--- NOTE | 2022-05-03 10:56 | PC.NURSE ---
ED MD AT BEDSIDE FOR EVALUATION
--- NOTE | 2022-05-03 11:05 | PC.NURSE ---
1109 PLAN OF CARE DISCUSSED WITH PT, QUESTIONS ENCOURAGED AND ANSWERED. AGREES TO POC IV STARTED, BLOOD COLLECTED, PT TOLERATED WELL. MEDICATED PER EMAR. OFFERED BLANKET, PT DECLINED. LIGHTS OFF AT THIS TIME
[2022-05-03 11:07] VITALS: BP 142/84; PULSE 90; O2SAT 98
[2022-05-03 11:12] LABS: Coronavirus 19, PCR Not Detected (NotDetected); Influenza A, PCR Not Detected (NotDetected)
[2022-05-03 11:13] LABS: Influenza B, PCR Not Detected (NotDetected)
[2022-05-03 11:21] LABS: Chloride 104 mmol/L (98-107)
[2022-05-03 11:22] VITALS: BP 129/82; PULSE 87; O2SAT 95
[2022-05-03 11:22] LABS: Basophils # 0.1 K/mm3 (0-0.2); Eosinophils # 0.3 K/mm3 (0.0-0.4); Eosinophils % 2.1 % (0.1-12.0); Hematocrit 43.3 % (37.0-47.0); Hemoglobin 13.5 g/dL (12.2-16.2); Lymphocytes # 2.1 K/mm3 (0.7-4.5); Lymphocytes % 16.1 % (10-50); Mean Corpuscular HGB Conc 31.1 g/dL (31.8-35.4); Mean Corpuscular Hemoglobin 28.3 pg (27.0-31.2); Mean Platelet Volume 8.8 fl (7.4-10.4); Monocytes # 0.6 K/mm3 (0.1-1.0); Monocytes % 4.9 % (1.7-9.3); Neutrophils # 9.9 K/mm3 (1.8-7.8); Platelet Count 352 K/mm3 (142-424); Red Blood Count 4.76 M/mm3 (4.20-5.40); Red Cell Distribution Width 13.9 % (11.5-17.5)
[2022-05-03 11:24] LABS: Alanine Aminotransferase 23 U/L (12-78); Albumin Level 4.2 g/dl (3.5-5.0); Albumin/Globulin Ratio 1.3 (1.1-1.8); Alkaline Phosphatase 105 U/L (38-126); Anion Gap 8.7 mEq/L (5-15); Aspartate Amino Transferase 21 U/L (14-36); Bilirubin,Total 0.3 mg/dl (0.2-1.3); Blood Urea Nitrogen 13 mg/dl (7-17); Calcium 9.3 mg/dl (8.4-10.2); Carbon Dioxide 29 mmol/L (22.0-30.0); Creatinine Clearance Estimated 183 mL/min (50-200); Estimated Glomerular Filt Rate 92 ml/min (>60); GFR (African American) 112 ML/MIN (>60); Globulin 3.3 g/dL (1.3-3.2); Glucose 101 mg/dl (74-100); Potassium 4.7 mmoL/L (3.5-5.1); Sodium 137 mmol/L (136-145); Total Protein,Serum 7.5 g/dl (6.3-8.2)
[2022-05-03 11:37] VITALS: BP 124/82; PULSE 83; O2SAT 95
--- NOTE | 2022-05-03 11:44 | PC.NURSE ---
ED MD AT BEDSIDE FOR REEVALUATION
--- NOTE | 2022-05-03 11:50 | HMH.EDGENADL ---
ED Disposition Clinical Impression: Viral syndrome Migraine Qualifiers: Migraine type: without aura Status migrainosus presence: without status migrainosus Intractability: not intractable Qualified Code(s): G43.009 - Migraine without aura, not intractable, without status migrainosus Disposition: Home, Self-Care Condition on Discharge: Good Instructions: DI for Viral Syndrome Prescriptions: Ondansetron [Zofran 4mg ODT] 4 mg PO BIDP PRN #10 tab PRN Reason: Nausea Transmission Status: Pending to [facility] Referrals: Swapna Moore APRN [Primary Care Provider] - - Critical Care Critical Care Time: No Attestation: On 05/03/22, the high probability of a clinically significant, sudden or life threatening deterioration of the following system(s) required my full and direct attention, intervention and personal management. The time I documented below is in addition to time spent performing reported procedures but includes the following listed in this critical care notation. Medical Decision Making - Medical Records Medical records reviewed: Yes: I reviewed the patient's medical records. - Timothy Inquiry Pt receiving controlled substance: No Vital Signs: 05/03/22 10:32 05/03/22 11:07 05/03/22 11:22 Temperature 98.4 F Temperature Source Oral Pulse Rate 90 87 Pulse Rate [Radial] 97 H Respiratory Rate 20 Blood Pressure 142/84 H 129/82 Blood Pressure [Right Arm] 145/86 H Blood Pressure Mean 96 96 Blood Pressure Mean [Right Arm] 105 Blood Pressure Source [Right Arm] Automatic Cuff Blood Pressure Position [Right Arm] Sitting 02 Sat by Pulse Oximetry 100 98 95 Oxygen Delivery Method Room Air 05/03/22 11:37 Temperature Temperature Source Pulse Rate 83 Pulse Rate [Radial] Respiratory Rate Blood Pressure 124/82 Blood Pressure [Right Arm] Blood Pressure Mean 92 Blood Pressure Mean [Right Arm] Blood Pressure Source [Right Arm] Blood Pressure Position [Right Arm] 02 Sat by Pulse Oximetry 95 Oxygen Delivery Method - Lab Data Lab Results 05/03/22 10:40: SARS-CoV-2 (PCR) Not detected, Influenza A Untype (PCR) Not detected, Influenza Type B (PCR) Not detected 05/03/22 11:05: WBC 13.0 H, RBC 4.76, Hgb 13.5, Hct 43.3, MCV 91.0, MCH 28.3, MCHC 31.1 L, RDW 13.9, Plt Count 352, MPV 8.8, Neut % (Auto) 76.0, Lymph % (Auto) 16.1, [place] % (Auto) 4.9, Eos % (Auto) 2.1, Baso % (Auto) 1.0, Neut # (Auto) 9.9 H, Lymph # (Auto) 2.1, [place] # (Auto) 0.6, Eos # (Auto) 0.3, Baso # (Auto) 0.1 05/03/22 11:05: Sodium 137, Potassium 4.7, Chloride 104, Carbon Dioxide 29, Anion Gap 8.7, BUN 13, Creatinine 0.70, Estimated Creat Clear 183, Estimated GFR 92, Est GFR ( Amer) 112, Glucose 101 H, Calcium 9.3, Total Bilirubin 0.3, AST 21, ALT 23, Alkaline Phosphatase 105, Total Protein 7.5, Albumin 4.2, Globulin 3.3 H, Albumin/Globulin Ratio 1.3 Result diagrams: 05/03/22 11:05 05/03/22 11:05 Orders (Tests/Meds): ED MEDICATIONS Generic Name Dose Route Start Last Admin Trade Name Freq PRN Reason Stop Dose Admin Sodium Chloride 1,000 mls @ 999 mls/hr 05/03/22 11:00 05/03/22 11:15 Sod Chlor 0.9% 1000ml Bag IV 05/03/22 12:00 999 mls/hr .Q1H1M ALEX Administration Sodium Chloride 10 ml 05/03/22 11:09 Sodium Chloride 0.9% 10ml Flush Syringe IV 06/02/22 11:08 NEEDED PRN Maintain IV Site Discontinued Medications Generic Name Dose Route Start Last Admin Trade Name Freq PRN Reason Stop Dose Admin Ketorolac Tromethamine 30 mg 05/03/22 10:59 05/03/22 11:16 Ketorolac 30mg/Ml Vial IV 05/03/22 11:00 30 mg ONCE ONE Administration Ondansetron HCl 4 mg 05/03/22 10:59 05/03/22 11:16 Ondansetron 4mg/2ml Vial IV 05/03/22 11:00 4 mg ONCE ONE Administration - Reevaluation(s) Time: 11:53 Reevaluation #1: On reevaluation, patient is feeling better. Headache is improved. Repeat neuro exam is normal. Patient is nontoxic-appearing. P
[2022-05-03 12:09] VITALS: BP 125/83; PULSE 89; RESP 16; TEMP 36.9; O2SAT 96
== END 2022-05-03 12:10 | disposition home or self-care (01) ==
PROVIDERS: Emergency Provider Emergency Medicine; PCP Nurse Practitioner Family
DX: B34.9 Viral infection, unspecified (principal); G43.009 Migraine without aura, not intractable, without status migrainosus
CPT/HCPCS: 80053; 85025; 96361; 96374; 96375; 99283; C9803; J2405; U0003; U0005

== ENCOUNTER → 2022-05-31 10:53 | Outpatient (CLI) | payer BC, SELFPAY ==
--- NOTE | 2022-05-31 11:00 | XR_ITS ---
FINAL REPORT CLINICAL HISTORY: LEFT SIDED CHEST PAIN; SOB FINDINGS: Two views of the chest were obtained. The heart size and pulmonary vascularity are within normal limits. The mediastinum is normal. No acute pulmonary abnormality is identified. There is no pneumothorax. The bony thorax is intact. IMPRESSION: No active cardiopulmonary disease. Reviewed, Interpreted and Dictated by Matt Guerrero III, MD Transcribed by Denys Bauer Authenticated and [facility]
[2022-05-31 11:59] LABS: Basophils # 0.4 K/mm3 (0-0.2); Basophils % 1.6 % (0.1-2.0); Eosinophils # 0.1 K/mm3 (0.0-0.4); Eosinophils % 0.4 % (0.1-12.0); Hematocrit 45.9 % (37.0-47.0); Hemoglobin 14.7 g/dL (12.2-16.2); Lymphocytes # 2.3 K/mm3 (0.7-4.5); Lymphocytes % 10.9 % (10-50); Mean Corpuscular Hemoglobin 29.3 pg (27.0-31.2); Mean Corpuscular Volume 91.4 fl (81-99); Mean Platelet Volume 9.1 fl (7.4-10.4); Monocytes # 1.4 K/mm3 (0.1-1.0); Monocytes % 6.3 % (1.7-9.3); Neutrophils # 17.3 K/mm3 (1.8-7.8); Neutrophils % 80.8 % (37.0-80.0); Platelet Count 408 K/mm3 (142-424); Red Blood Count 5.02 M/mm3 (4.20-5.40); Red Cell Distribution Width 14.3 % (11.5-17.5); White Blood Count 21.4 K/mm3 (4.8-10.8)
[2022-05-31 12:01] LABS: MANUAL DIFFERENTIAL MANUAL DIFFERENTIAL (MANUAL DIFF)
[2022-05-31 12:13] LABS: D-Dimer 0.29 ug/mL (0.0-0.5)
[2022-05-31 12:57] LABS: Lymphocytes % 12 % (10-50); Monocytes % 7 % (2-9); Neutrophils % 80 % (42-76); Total Cells Counted 100
[2022-05-31 12:58] LABS: Platelet Estimate Slight Increase; RBC Morphology Normal
[2022-05-31 13:57] LABS: Alanine Aminotransferase 26 U/L (12-78); Albumin Level 4.2 g/dl (3.5-5.0); Albumin/Globulin Ratio 1.3 (1.1-1.8); Alkaline Phosphatase 98 U/L (38-126); Anion Gap 13.3 mEq/L (5-15); Aspartate Amino Transferase 22 U/L (14-36); Blood Urea Nitrogen 16 mg/dl (7-17); Calcium 9.2 mg/dl (8.4-10.2); Carbon Dioxide 25 mmol/L (22.0-30.0); Chloride 103 mmol/L (98-107); Estimated Glomerular Filt Rate 92 ml/min (>60); GFR (African American) 112 ML/MIN (>60); Globulin 3.2 g/dL (1.3-3.2); Glucose 81 mg/dl (74-100); Potassium 4.3 mmoL/L (3.5-5.1); Sodium 137 mmol/L (136-145); Total Protein,Serum 7.4 g/dl (6.3-8.2)
[2022-05-31 13:58] LABS: Bilirubin,Total 0.1 mg/dl (0.2-1.3)
[2022-05-31 14:31] LABS: Troponin I < 0.01 ng/ml (0.00-0.034)
== END ==
LOC: RAD 10:56
PROVIDERS: PCP Nurse Practitioner Family; Visit Provider Nurse Practitioner Family
DX: R06.02 Shortness of breath (principal); R07.9 Chest pain, unspecified
CPT/HCPCS: 36415; 71046; 80053; 84484; 85007; 85025; 85378

== ENCOUNTER → 2022-06-04 10:24 | Outpatient (CLI) | payer BC, SELFPAY ==
[2022-06-04 11:29] LABS: Basophils # 0.2 K/mm3 (0-0.2); Basophils % 1.5 % (0.1-2.0); Eosinophils # 0.2 K/mm3 (0.0-0.4); Hematocrit 43.7 % (37.0-47.0); Hemoglobin 13.5 g/dL (12.2-16.2); Lymphocytes # 2.6 K/mm3 (0.7-4.5); Lymphocytes % 18.1 % (10-50); Mean Corpuscular HGB Conc 30.8 g/dL (31.8-35.4); Mean Corpuscular Hemoglobin 28.9 pg (27.0-31.2); Mean Corpuscular Volume 93.7 fl (81-99); Mean Platelet Volume 8.8 fl (7.4-10.4); Monocytes # 0.9 K/mm3 (0.1-1.0); Monocytes % 6.3 % (1.7-9.3); Neutrophils # 10.5 K/mm3 (1.8-7.8); Platelet Count 327 K/mm3 (142-424); Red Blood Count 4.66 M/mm3 (4.20-5.40); Red Cell Distribution Width 14.3 % (11.5-17.5); White Blood Count 14.4 K/mm3 (4.8-10.8)
== END ==
PROVIDERS: PCP Nurse Practitioner Family; Visit Provider Nurse Practitioner Family
DX: D72.829 Elevated white blood cell count, unspecified (principal)
CPT/HCPCS: 36415; 85025; 87040

== ENCOUNTER → 2022-06-11 09:51 | Outpatient (CLI) | payer BC, SELFPAY ==
--- NOTE | 2022-06-11 09:58 | CT_ITS ---
FINAL REPORT TECHNIQUE: Thin section axial CT images were obtained from the lung apices to the upper abdomen. IV contrast was administered. MIP 3-D reformats were obtained. This study was performed with techniques to keep radiation doses as low as reasonably achievable (ALARA). Individualized dose reduction techniques using automated exposure control or adjustment of mA and/or kV according to the patient's size were employed. CLINICAL HISTORY: SOB,COVID 19,LEUKOCYTOSIS FINDINGS: The heart size is normal. There is no adenopathy. There is no filling defect to suggest PE. There is no aortic dissection. There is no pericardial effusion. There is no suspicious infiltrate or nodule. No pleural effusion. Limited images of the upper abdomen demonstrate no acute abnormality. There is cervical fusion hardware in the lower cervical spine. IMPRESSION: No pulmonary embolism or aortic dissection. Reviewed, Interpreted and Dictated by Jermaine Serrano MD Transcribed by Denys Bauer Authenticated and [facility]
== END ==
PROVIDERS: PCP Nurse Practitioner Family; Visit Provider Nurse Practitioner Family
DX: R06.02 Shortness of breath (principal); U07.1 COVID-19; D72.829 Elevated white blood cell count, unspecified
CPT/HCPCS: 71275; Q9967

== ENCOUNTER → 2022-07-13 09:44 | Outpatient (CLI) | payer BC, SELFPAY ==
[2022-07-13 10:30] VITALS: PULSE 106; PULSE 98
== END ==
PROVIDERS: PCP Nurse Practitioner Family; Visit Provider Nurse Practitioner Family
DX: R06.02 Shortness of breath (principal)
CPT/HCPCS: 94060; 94640

== ENCOUNTER → 2022-09-03 15:57 | Outpatient (CLI) | payer BC, SELFPAY ==
[2022-09-03 18:58] LABS: Anion Gap 14.1 mEq/L (5-15); Blood Urea Nitrogen 18 mg/dl (7-17); Calcium 9.8 mg/dl (8.4-10.2); Carbon Dioxide 28 mmol/L (22.0-30.0); Chloride 101 mmol/L (98-107); Estimated Glomerular Filt Rate 92 ml/min (>60); GFR (African American) 112 ML/MIN (>60); Glucose 94 mg/dl (74-100); Potassium 4.1 mmoL/L (3.5-5.1); Sodium 139 mmol/L (136-145)
== END ==
PROVIDERS: PCP Nurse Practitioner Family; Visit Provider Physician Assistant
DX: R06.00 Dyspnea, unspecified (principal); R07.9 Chest pain, unspecified; R07.89 Other chest pain; I25.10 Atherosclerotic heart disease of native coronary artery without angina pectoris; I10 Essential (primary) hypertension; G47.33 Obstructive sleep apnea (adult) (pediatric); Z82.49 Family history of ischemic heart disease and other diseases of the circulatory system
CPT/HCPCS: 36415; 80048

== ENCOUNTER → 2022-09-09 07:50 | Outpatient (CLI) | payer BC, SELFPAY ==
--- NOTE | 2022-09-09 | CA_ITS ---
APPROVED REPORT Exam: Exercise Treadmill Technologist: Magdalene Ahn, Ht: 5 ft 6 in Wt: 253 lbs BSA: 2.21 m2 HR: 90 bpm BP: 147/75 mmHg Rhythm: NSR, T wave abn in leads 3, AVF Indications: SOA Medical History Medical History: HTN Medications: Metoprolol,,,,, Trazadone,,,,, Escitalopram,,,,, SyMBICORT,,,,, Albuterol,,,,, Losartan HCT,,,,, ONdansetron,,,,, BuTalbital/acetaninophmen,,,,, Atorvasatin,,,,, Cardiac Risk Factors: HTN, FHX of CAD Stress Test Details Test: Gamaliel HR Resting HR: 99 bpm Max Heart Rate (APMHR): 179.751762 bpm Max HR Achieved: 163 bpm Target HR (85% APMHR): 152.740494 bpm % of APMHR: 91.06 Recovery HR: 138 bpm BP Resting BP: 150/82 mmHg Max BP: 186/80 mmHg Recovery BP: 145.0/92.0 mmHg ECG Resting ECG: NSR, T wave abn in leads 3, aVF Clinical Exercise duration: 07:01 min Highest Stage Achieved: Exercise capacity: 10.1 METs Stress ECG Conclusion During gamaliel protocol exercised 7:01 minutes. Pt experinced mild chest tightness and SOA. No arrhythmias noted. Mild exagerration of baseline abns. Non diagnostic GXT. Myoview images reported separately. Test Summary REST . . . . . . . Sitting REST . . . . . . . Standing REST 03:33 0.0 0.0 99 . 150/ 82 . . Stage 1 01:00 10.0 1.7 115 . . . . Stage 1 02:00 10.0 1.7 124 . . . . Stage 1 03:00 10.0 1.7 131 . 184/ 90 . . Stage 2 01:00 12.0 2.5 139 . . . . Stage 2 02:00 12.0 2.5 145 . . . . Stage 2 03:00 12.0 2.5 148 . 186/ 80 . . Stage 3 01:00 14.0 3.4 162 . . . . Stage 3 01:01 14.0 3.4 162 . . . Stop exercise at 07:01 RECOVERY 01:00 0.0 0.0 138 . . . . RECOVERY 02:00 0.0 0.0 120 . . . . RECOVERY 03:00 0.0 0.0 113 . 145/ 92 . . RECOVERY 04:00 0.0 0.0 106 . 139/ 89 . . RECOVERY 05:00 0.0 0.0 114 . 139/ 89 . . RECOVERY 05:26 0.0 0.0 110 . 135/ 96 . . Electronically signed by : Octavio Light MD 09/10/2022 18:35:41
--- NOTE | 2022-09-09 07:55 | NM_ITS ---
APPROVED REPORT Exam: Nuclear Stress Test Indication: Chest pain, SOB, Palpitations, Fatigue, HTN, High cholesterol, Family history Patient Location: Outpatient Stress Tech: Magdalene HIGGINS Tech:Cherri MendietaCRESENCIO RT(R)(N) Ht: 5 ft 6 in Wt: 250 lbs Bra Size: 40DD HR: 99 bpm BP: 150/82 mmHg BSA: 2.20 m2 TID: 1.23 BMI: 40.3 History: Chest pain, SOB, Palpitations, Fatigue, HTN, High cholesterol, Family history Procedure: Patient exercised on Alok protocol 7:01 minutes and sec, resting heart rate 99 bpm, resting blood pressure 150/82 mmHg, with exercise maximum heart rate achived was 163 bpm which is 91 % of the maximum predicted heart rate and blood pressure was 186/80 mmHg. Test was stopped due to SOB. Patient denied any complaint of chest pain. Patient has Good exercise capacity, achieved 10.1 METs of workload on treadmill, the blood pressure response to exercise was Adequate. Electrocardiogram Resting electrocardiogram shows sinus rhythm nonspecific ST-T changes, with exercise there is less than 1.[address] segment depression noted from the baseline EKG. The EKG portion of the exercise Myoview is nondiagnostic due to baseline abnormal EKG. Cardiac Stress and Resting SPECT Images: Cardiac Stress and Resting SPECT images were obtained using technetium 99m Myoview 32.1 mCi stress and 10.05 mCi at rest. Gated SPECT analysis of segmental wall motion and calculation of the ejection fraction also done. Prone images were also obtained. Cardiac stress and rest SPECT may show reversible ischemia involving the anterior, anteroseptal and apical wall, computer derived ejection fraction is 47% with mild anterior apical wall hypokinesis, right ventricle is normal size and contractility. Conclusion: 1. The EKG portion of the exercise Myoview is nondiagnostic due to baseline abnormal EKG, patient with exercise capacity of 10.1 METs of workload on treadmill, the blood pressure response to exercise was adequate, patient complained of mild chest discomfort and shortness of breath with exercise relieved with rest. 2. Scintigraphic evidence of reversible ischemia involving the inferior apical and anteroseptal wall, computer derived ejection fraction is 47% with segmental wall motion abnormality described above, right ventricle is normal size and contractility. 3. Abnormal exercise Myoview study. Electronically signed by : Octavio Light MD 09/10/2022 18:39:13
--- NOTE | 2022-09-09 08:16 | CA_ITS ---
APPROVED REPORT EXAM: Comprehensive 2D, Doppler, and color-flow Echocardiogram Glass Etcher: Kaylin Funez RT(R) Ht: 5 ft 6 in Wt: 250lbs BSA: 2.20 BP: 149/85 mmHg Indications: SOA, CP, HTN, family history of HD, SURENDRA, hx COVID, obesity 2D Dimensions LVOT 1.89 cm (M/F) 1.5-2.5 LA Volume 24.90 mL LA Volume Index 11.32 mL/m2 (M/F) 16-34 M-Mode Dimensions RVDd 2.05 cm (0.9-2.6) LA Diam 3.35 cm (1.9-4.0) LVDd 4.11 cm (3.5-5.7) Ao Diam 2.46 cm (2.0-3.7) LVDs 3.14 cm (3.5-5.7) IVSd 1.09 cm (0.6-1.1) PWd 0.81 cm (0.6-1.1) EF (Teich) 47.70% FS 23.60% EDV (Teich) 74.70 mL ESV (Teich) 39.10 mL LV Diastology E Decel Time 150.00 (160-240 msec) E/A Ratio 1.3 MED E' 13.20 (< 7 cm/sec) E'/MED E' Ratio 5.56 (>14) LAT E' 15.50 (<10 cm/sec) E/LAT E' Ratio 4.74 (>14) Mitral Valve MV E Max Talib. 73.00 (40-130 cm/s) MV A Velocity 56.00 (40-130 cm/s) E/A Ratio 1.31 MV Decel. Time 150.00 (160-240 ms) MV PHT 44.00 ms Left Ventricle Technically difficult study because of the patient factors and poor acoustic windows. Left atrium normal size, left ventricle is normal size, there is no concentric left ventricular hypertrophy, estimated ejection fraction 55% with no regional wall motion abnormality, diastolic parameters are within normal range. Right Ventricle Right atrium and right ventricle are normal size and contractility. Aortic Valve Aortic valve is grossly normal, there is no aortic stenosis or aortic insufficiency. Mitral Valve Mitral valve is grossly normal, there is trace mitral regurgitation. Tricuspid Valve Tricuspid grossly normal, there is trace tricuspid regurgitation, tricuspid regurgitation jet velocity is inadequate for calculation of the right ventricular systolic pressure. Pulmonic Valve Pulmonic valve is poorly visualized. Great Vessels Aortic root is normal size. Inferior vena cava is poorly visualized. Pericardium No significant pericardial effusion noted. Conclusion 1. Technically difficult study because of the patient factors and poor acoustic windows. 2. Normal left ventricular size, estimated ejection fraction 55% with no regional wall motion abnormality, diastolic parameters are within normal range. 3. Trace mitral and tricuspid regurgitation. 4. No significant pericardial effusion. 5. Inferior vena cava is poorly visualized. Electronically signed by : Octavio Light MD 09/10/2022 19:18:22
== END ==
PROVIDERS: PCP Nurse Practitioner Family; Visit Provider Physician Assistant
DX: R06.00 Dyspnea, unspecified (principal); R07.9 Chest pain, unspecified; R07.89 Other chest pain; I25.10 Atherosclerotic heart disease of native coronary artery without angina pectoris; I10 Essential (primary) hypertension; G47.33 Obstructive sleep apnea (adult) (pediatric); Z82.49 Family history of ischemic heart disease and other diseases of the circulatory system
CPT/HCPCS: 78452; 93017; 93306; 94060; 94618; 94726; 94729; A9502

== ENCOUNTER → 2022-09-14 14:17 | Outpatient (CLI) | payer BC, SELFPAY ==
[2022-09-14 14:53] LABS: Basophils # 0.1 K/mm3 (0-0.2); Basophils % 0.6 % (0.1-2.0); Eosinophils # 0.1 K/mm3 (0.0-0.4); Eosinophils % 0.7 % (0.1-12.0); Hematocrit 41.3 % (37.0-47.0); Hemoglobin 13.7 g/dL (12.2-16.2); Lymphocytes % 13.1 % (10-50); Mean Corpuscular HGB Conc 33.2 g/dL (31.8-35.4); Mean Corpuscular Volume 90.6 fl (81-99); Mean Platelet Volume 8.7 fl (7.4-10.4); Monocytes # 0.8 K/mm3 (0.1-1.0); Neutrophils % 80.5 % (37.0-80.0); Platelet Count 363 K/mm3 (142-424); Red Blood Count 4.56 M/mm3 (4.20-5.40); Red Cell Distribution Width 13.6 % (11.5-17.5)
[2022-09-14 14:56] LABS: MANUAL DIFFERENTIAL MANUAL DIFFERENTIAL (MANUAL DIFF)
[2022-09-14 15:44] LABS: Anion Gap 15.2 mEq/L (5-15); Blood Urea Nitrogen 14 mg/dl (7-17); Calcium 9.8 mg/dl (8.4-10.2); Carbon Dioxide 26 mmol/L (22.0-30.0); Chloride 103 mmol/L (98-107); Estimated Glomerular Filt Rate 79 ml/min (>60); GFR (African American) 96 ML/MIN (>60); Glucose 94 mg/dl (74-100); Potassium 4.2 mmoL/L (3.5-5.1); Sodium 140 mmol/L (136-145)
[2022-09-14 15:51] LABS: Eosinophils % 1 % (0-3); Lymphocytes % 20 % (10-50); Monocytes % 5 % (2-9); Neutrophils % 74 % (42-76); Platelet Estimate Normal; RBC Morphology Normal; Total Cells Counted 100
== END ==
PROVIDERS: PCP Nurse Practitioner Family; Visit Provider Nurse Practitioner
DX: R06.00 Dyspnea, unspecified (principal); I20.8 Other forms of angina pectoris; I10 Essential (primary) hypertension; R94.39 Abnormal result of other cardiovascular function study; I63.9 Cerebral infarction, unspecified; G47.33 Obstructive sleep apnea (adult) (pediatric); Z82.49 Family history of ischemic heart disease and other diseases of the circulatory system
CPT/HCPCS: 36415; 80048; 85007; 85025

== ENCOUNTER 2022-09-15 09:28 | Day surgery (SDC) | payer BC, SELFPAY ==
[2022-09-15] VITALS (17 sets, daily range): BP systolic 122–161; BP diastolic 69–125; PULSE 86–113; RESP 16–18; TEMP 36.9; O2SAT 96–99; BMI 38.7
--- NOTE | 2022-09-15 | CA_ITS ---
APPROVED REPORT EXAM: Comprehensive 2D, Doppler, and color-flow Echocardiogram Pocket Secretary Assembler: Vanessa Michelle CRT Ht: 5 ft 6 in Wt: 248lbs BSA: 2.19 BP: 163/102 mmHg Indications: Post cath effusion check Conclusion 1. Limited echocardiogram was obtained to evaluate for pericardial effusion. 2. No significant pericardial effusion noted. 3. Preserved left ventricular systolic function from the obtained views. Electronically signed by : Octavio Light MD 09/15/2022 20:44:42
--- NOTE | 2022-09-15 07:16 | IR_ITS ---
APPROVED REPORT Patient Location: Outpatient PROCEDURES Selective coronary angiogram Percutaneous stent deployment to a chronically occluded proximal to mid LAD INDICATION High risk abnormal Myoview, Occluded LAD, Angina pectoris Informed consent was obtained prior to the procedure. COMPLICATIONS None Estimated Blood Loss: Less than 10 mls TECHNIQUE One percent lidocaine used to anesthetize the right anterior aspect of the wrist. The right radial artery was accessed via the Seldinger technique. A 6 Luxembourgish sheath was placed in the right radial artery. 2.5 mg of verapamil, 800 mcg of nitroglycerin, 1mg Lidocaine and 5000 U Heparin were given through the arterial sheath. The papa catheter was also used to perform selective coronary angiogram. At the end of the procedure therapeutic heparin was administered giving a therapeutic ACT and the guide catheter was placed in the left main artery. A Choice PT extra-support wire was placed in the mid LAD after the first septal dispatcher maintenance service and first diagonal artery and pushed however the vessel was chronically occluded. A 2 mm x 20 mm balloon was required for support and to allow further pressure to be applied to the wire to push through the chronic occlusion. The wire was then pushed into the distal LAD. The balloon was advanced and deployed at 5 and then 8 traci which demonstrated recanalization of the vessel. Following this a 2.5 mm balloon was used to predilate the stenosis. Following this a 2.25 x 38 mm resolute Webb stent was deployed immediately after the first diagonal artery and first septal dispatcher maintenance service at 16 traci reducing the stenosis. A 2.5 x 12 mm noncompliant balloon was then placed in the proximal segment and midportion of the stent and deployed at 24 traci to post dilate. LONA 0 flow was present at the beginning of the procedure with LONA-3 flow at the end of the procedure. The end of the procedure the apparatus was moved the sheath was removed and hemostasis was achieved using TR banding patient was transferred to the postop putting in stable condition ANGIOGRAPHIC RESULTS The left main artery Normal The left anterior descending artery Is proximally patent and then occluded after the first septal dispatcher maintenance service and first diagonal artery. The vessel scantly collateralizes via right to left collaterals The circumflex artery Nondominant with mild 10 to 20% atheromatous diffuse plaque The right coronary artery Is a dominant vessel and has proximal and mid vessel calcified 30% stenoses. The posterior descending artery is a large vessel and has 30% proximal and 40% mid vessel stenoses. The distal vessel collateralizes the LAD through scant septal dispatcher maintenance service The SOLORIO ventriculogram reveals Not performed The left ventricular end-diastolic pressure Not measured IMPRESSION Successful percutaneous revascularization of a chronically occluded LAD 100% heavily calcified stenosis reduced to 0% with 1 drug-eluting stent PLAN 1. Brilinta 90 twice daily plus aspirin 81 mg daily 2. Increase metoprolol from succinate 50 mg a day to tartrate 50 mg twice daily 3. Double Lipitor from 40 mg a day to 80 mg a day 4. Aggressive risk factor modification 5. Cardiac rehabilitation 6. Goal heart rate in the 60s to low 70s. Uptitrate metoprolol as tolerated to achieve low heart rate 7. Recommend exercise Myoview in 3 months due to the aggressive nature of patient's premature coronary artery disease and calcific occlusions Electronically signed by : Claude Whitley MD 09/15/2022 14:59:42
[2022-09-15 09:55] LABS: HCG Qualitative, Serum Negative (Negative)
[2022-09-15 12:41] LABS: CATHL Activated Clotting Time > 400 SEC (74-125)
--- NOTE | 2022-09-15 15:11 | P.CONPHA_ITS ---
PHA Collision Repair Technician Discharge Med Early [employer] Teacher: Krissy Roberson has received discharge medication counseling on the following medications: ASPIRIN ATORVASTATIN BRILINTA (NEW) LOSARTAN METOPROLOL TARTRATE PATIENT WILL TAKE BRILINTA FOR THE FIRST MONTH AND THEN SWITCH TO PLAVIX. PATIENT VERBALIZED UNDERSTANDING AND HAD NO QUESTIONS AT THIS TIME. -MELISA HARDING, CHELD
== END 2022-09-15 15:30 | disposition home or self-care (01) ==
PROVIDERS: PCP Nurse Practitioner Family; Visit Provider Internal Medicine
DX: I25.118 Atherosclerotic heart disease of native coronary artery with other forms of angina pectoris (principal); I10 Essential (primary) hypertension; G47.33 Obstructive sleep apnea (adult) (pediatric); Z82.49 Family history of ischemic heart disease and other diseases of the circulatory system; J44.9 Chronic obstructive pulmonary disease, unspecified; Z79.899 Other long term (current) drug therapy; I25.82 Chronic total occlusion of coronary artery
CPT/HCPCS: 84703; 85347; 92928; 93308; 99152; 99153; C1725; C1769; C1876; C9600; J1644; Q9967

== ENCOUNTER → 2022-09-20 08:59 | Outpatient (CLI) | payer BC, SELFPAY ==
[2022-09-20 09:17] LABS: Basophils # 0.1 K/mm3 (0-0.2); Basophils % 0.8 % (0.1-2.0); Eosinophils # 0.2 K/mm3 (0.0-0.4); Eosinophils % 1.3 % (0.1-12.0); Hematocrit 43.8 % (37.0-47.0); Lymphocytes # 1.9 K/mm3 (0.7-4.5); Lymphocytes % 15.2 % (10-50); Mean Corpuscular HGB Conc 32.1 g/dL (31.8-35.4); Mean Corpuscular Volume 90.6 fl (81-99); Mean Platelet Volume 8.8 fl (7.4-10.4); Monocytes # 0.6 K/mm3 (0.1-1.0); Monocytes % 4.9 % (1.7-9.3); Neutrophils # 9.6 K/mm3 (1.8-7.8); Neutrophils % 77.8 % (37.0-80.0); Platelet Count 398 K/mm3 (142-424); Red Blood Count 4.84 M/mm3 (4.20-5.40); Red Cell Distribution Width 13.5 % (11.5-17.5); White Blood Count 12.3 K/mm3 (4.8-10.8)
[2022-09-20 09:41] LABS: Chloride 103 mmol/L (98-107); Potassium 3.9 mmoL/L (3.5-5.1); Sodium 139 mmol/L (136-145)
[2022-09-20 09:43] LABS: Blood Urea Nitrogen 19 mg/dl (7-17); Estimated Glomerular Filt Rate 79 ml/min (>60); GFR (African American) 96 ML/MIN (>60)
[2022-09-20 09:44] LABS: Anion Gap 13.9 mEq/L (5-15); Carbon Dioxide 26 mmol/L (22.0-30.0); Glucose 104 mg/dl (74-100)
== END ==
PROVIDERS: PCP Nurse Practitioner Family; Visit Provider Internal Medicine
DX: I25.10 Atherosclerotic heart disease of native coronary artery without angina pectoris (principal)
CPT/HCPCS: 36415; 80048; 85025

== ENCOUNTER → 2022-09-25 08:27 | Outpatient (CLI) | payer BC, SELFPAY ==
[2022-09-25 10:20] LABS: Basophils # 0.1 K/mm3 (0-0.2); Basophils % 0.7 % (0.1-2.0); Eosinophils # 0.1 K/mm3 (0.0-0.4); Eosinophils % 0.9 % (0.1-12.0); Hematocrit 40.4 % (37.0-47.0); Hemoglobin 12.8 g/dL (12.2-16.2); Lymphocytes % 15.5 % (10-50); Mean Corpuscular HGB Conc 31.6 g/dL (31.8-35.4); Mean Corpuscular Hemoglobin 29.4 pg (27.0-31.2); Mean Corpuscular Volume 93.1 fl (81-99); Mean Platelet Volume 9.3 fl (7.4-10.4); Monocytes # 0.7 K/mm3 (0.1-1.0); Monocytes % 5.7 % (1.7-9.3); Neutrophils # 9.8 K/mm3 (1.8-7.8); Neutrophils % 77.1 % (37.0-80.0); Platelet Count 362 K/mm3 (142-424); Red Blood Count 4.34 M/mm3 (4.20-5.40); Red Cell Distribution Width 13.7 % (11.5-17.5); White Blood Count 12.7 K/mm3 (4.8-10.8)
[2022-09-25 11:41] LABS: Alanine Aminotransferase 22 U/L (12-78); Albumin Level 4.2 g/dl (3.5-5.0); Alkaline Phosphatase 92 U/L (38-126); Anion Gap 15.1 mEq/L (5-15); Aspartate Amino Transferase 20 U/L (14-36); Bilirubin,Direct 0.1 mg/dl (0.0-0.4); Bilirubin,Indirect 0.2 mg/dL (0.0-0.9); Bilirubin,Total 0.3 mg/dl (0.2-1.3); Bilirubin,Unconjugated 0.3 mg/dL (0.0-1.1); Blood Urea Nitrogen 20 mg/dl (7-17); Carbon Dioxide 24 mmol/L (22.0-30.0); Chloride 108 mmol/L (98-107); Chol/HDL Ratio 3.3 (1-3.5); Cholesterol 119 mg/dl (140-200); Estimated Glomerular Filt Rate 79 ml/min (>60); GFR (African American) 96 ML/MIN (>60); Glucose 94 mg/dl (74-100); HDL Cholesterol 36 mg/dl (40-60); Magnesium 2.1 mg/dl (1.6-2.3); Potassium 4.1 mmoL/L (3.5-5.1); Sodium 143 mmol/L (136-145); Triglycerides 91 mg/dl (30-150); VLDL Cholesterol 18 mg/dL (0-40)
[2022-09-25 11:58] LABS: Free T4 (Free Thyroxine) 0.89 ng/dl (0.78-2.19)
[2022-09-25 12:12] LABS: Thyroid Stimulating Hormone 1.59 uIU/mL (0.465-4.68)
== END ==
PROVIDERS: PCP Nurse Practitioner Family; Visit Provider Internal Medicine
DX: R06.00 Dyspnea, unspecified (principal); I20.8 Other forms of angina pectoris; I10 Essential (primary) hypertension; E78.5 Hyperlipidemia, unspecified; G47.33 Obstructive sleep apnea (adult) (pediatric); Z82.49 Family history of ischemic heart disease and other diseases of the circulatory system
CPT/HCPCS: 36415; 80048; 80061; 80076; 83735; 84439; 84443; 85025

== ENCOUNTER 2022-09-28 12:46 | Outpatient (RCR) | payer BC, SELFPAY | END 2022-12-17 16:00 | disposition home or self-care (01) | LOC: PT 12:46 | PROVIDERS: Visit Provider Internal Medicine | DX: I25.10 Atherosclerotic heart disease of native coronary artery without angina pectoris (principal); Z95.5 Presence of coronary angioplasty implant and graft | CPT/HCPCS: 93798 ==

== ENCOUNTER 2022-10-27 14:12 | Observation (INO) | payer BC, SELFPAY ==
[2022-10-27] VITALS (10 sets, daily range): BP systolic 114–154; BP diastolic 70–97; PULSE 60–78; RESP 13–20; TEMP 36.6–37.3; O2SAT 96–99; BMI 32.3; BMI 40.5
--- NOTE | 2022-10-27 14:12 | ECG_ITS ---
APPROVED REPORT Exam: Resting ECG HR:71 bpm ECG Measurements Heart Rate 71 AXES WY 140 P 40 QRSd 83 QRS 54 QT 348 T 48 QTc 371 Conclusion SINUS RHYTHM NORMAL ECG UNCONFIRMED REPORT Electronically signed by : Reddy Hart MD 10/27/2022 21:22:32
--- NOTE | 2022-10-27 14:27 | XR_ITS ---
FINAL REPORT CLINICAL HISTORY: soa COMPARISON: 05/31/2022 FINDINGS: SINGLE-VIEW CHEST The heart size is normal. The mediastinum is normal. There are chronic changes at the bases. The lungs are otherwise clear. Cervical fusion hardware is seen in the lower cervical spine. There is no pneumothorax. IMPRESSION: No acute cardiopulmonary process. Reviewed, Interpreted and Dictated by Jermaine Serrano MD Transcribed by Debbie Callahan Authenticated and [facility]
--- NOTE | 2022-10-27 14:28 | HMH.EDGENADL ---
Discharge Plan Disposition Patient Disposition: Admitted As Inpatient Prescriptions Prescriptions: No Action albuterol sulfate 90 mcg/actuation HFA aerosol inhaler 2 inh inhalation Q6H PRN (Reason: shortness of breath or wheezing) 90 Days Qty: 8.5 1RF trazodone 50 mg tablet 50 mg PO DAILY PRN (Reason: .) zsyiaekrwd-axnzntwdrzyrb-arml 50-325-40 mg tablet 1 tab PO Q4-6H PRN (Reason: .) aspirin [Adult Low Dose Aspirin] 81 mg tablet,delayed release (DR/EC) 81 mg PO DAILY metoprolol tartrate 100 mg tablet 100 mg PO Q12H Qty: 60 5RF losartan 50 mg tablet 50 mg PO DAILY Qty: 30 2RF escitalopram oxalate [Lexapro] 10 mg tablet 10 mg PO DAILY Qty: 30 1RF ondansetron 4 mg tablet,disintegrating 4 mg PO Q6H PRN (Reason: nausea and vomiting) Qty: 14 0RF Advair HFA 115-21 mcg/actuation HFA aerosol inhaler 2 puff inhalation BID atorvastatin [Lipitor] 80 mg Tablet 80 mg PO HS 30 Days Qty: 30 3RF isosorbide mononitrate 30 mg Tablet Extended Release 24 Hr 30 mg PO DAILY 30 Days Qty: 30 3RF clopidogrel [Plavix] 75 mg Tablet 75 mg PO DAILY Qty: 31 4RF Referrals Follow up/Referrals: Provider,Referral, [Referring] - See instructions Clinical Impressions Clinical Impression: Chest pain Discharge ED Provider: Fadi Whitney General Adult HPI General Chief complaint: Chest Pain Stated complaint: chest pain Time Seen by Provider: 10/27/22 14:15 History of Present Illness HPI narrative: 42-year-old female with recent stent placement presents with substernal chest pain. She says the pain is constant and radiating to her back not severe in onset or tearing or ripping in nature. No numbness weakness or tingling arms or legs. No coughing up blood no recent travel. No fever no cough. Pain is not worse with deep breathing. Related Data Home Medications Medication Instructions Recorded Confirmed gekruseubx-wcjyjexwbocrw-oqzyniib 1 tab PO Q4-6H PRN . 08/26/22 10/19/22 50 mg-325 mg-40 mg tablet trazodone 50 mg tablet 50 mg PO DAILY PRN . 08/26/22 10/19/22 aspirin 81 mg tablet,delayed 81 mg PO DAILY . 09/09/22 10/19/22 release (Adult Low Dose Aspirin) fluticasone propionate 115 2 puff inhalation BID . 09/15/22 10/19/22 mcg-salmeterol 21 mcg/actuation HFA inhaler (Advair HFA) Previous Rx's Medication Instructions Recorded albuterol sulfate 90 mcg/actuation 2 inh inhalation Q6H PRN shortness 08/17/22 aerosol inhaler of breath or wheezing 90 days #8.5 grams atorvastatin 80 mg tablet (Lipitor) 80 mg PO HS 30 days #30 tabs 09/15/22 clopidogrel 75 mg tablet (Plavix) 75 mg PO DAILY #31 tabs 09/15/22 isosorbide mononitrate 30 mg 30 mg PO DAILY 30 days #30 tabs 09/15/22 tablet,extended release 24 hr ondansetron 4 mg disintegrating 4 mg PO Q6H PRN nausea and 09/16/22 tablet vomiting #14 tabs metoprolol tartrate 100 mg tablet 100 mg PO Q12H #60 tabs 09/21/22 losartan 50 mg tablet 50 mg PO DAILY #30 tabs 09/28/22 escitalopram oxalate 10 mg tablet 10 mg PO DAILY #30 tabs 10/19/22 (Lexapro) Allergies Allergy/AdvReac Type Severity Reaction Status Date / Time diphenhydramine Allergy Verified 09/28/22 11:21 [From Benadryl] [facility] Disclaimer: The information contained in this section may have been updated after the patient was seen, as this information can be updated by other users. Medical History (Updated 10/27/22 @ 15:54 by Fadi Whitney MD) Atypical angina Atypical chest pain Chest pain Coronary artery disease Heavy menstrual bleeding HLD (hyperlipidemia) Orthopnea Persistent dyspnea after COVID-19 Prediabetes Typical angina Surgical History (Updated 10/19/22 @ 13:57 by Lise Gregory DO) History of cervical spinal surgery Hx of cardiac cath Family History Other Asthma COPD (chronic obstructive pulmonary disease) Dementia Diabetes Hypertension Lung cance
[2022-10-27 14:40] LABS: Alanine Aminotransferase 26 U/L (12-78); Albumin Level 4.1 g/dl (3.5-5.0); Albumin/Globulin Ratio 1.4 (1.1-1.8); Alkaline Phosphatase 99 U/L (38-126); Anion Gap 7.8 mEq/L (5-15); Aspartate Amino Transferase 26 U/L (14-36); Bilirubin,Total 0.2 mg/dl (0.2-1.3); Blood Urea Nitrogen 15 mg/dl (7-17); Calcium 8.8 mg/dl (8.4-10.2); Carbon Dioxide 26 mmol/L (22.0-30.0); Chloride 108 mmol/L (98-107); Estimated Glomerular Filt Rate 92 ml/min (>60); GFR (African American) 112 ML/MIN (>60); Globulin 2.9 g/dL (1.3-3.2); Glucose 95 mg/dl (74-100); Potassium 3.8 mmoL/L (3.5-5.1); Sodium 138 mmol/L (136-145)
[2022-10-27 14:42] LABS: Basophils # 0.1 K/mm3 (0-0.2); Basophils % 0.9 % (0.1-2.0); Eosinophils # 0.2 K/mm3 (0.0-0.4); Eosinophils % 1.7 % (0.1-12.0); Hemoglobin 13.2 g/dL (12.2-16.2); Lymphocytes # 2.6 K/mm3 (0.7-4.5); Lymphocytes % 20.1 % (10-50); Mean Corpuscular HGB Conc 33.8 g/dL (31.8-35.4); Mean Corpuscular Hemoglobin 30.9 pg (27.0-31.2); Mean Corpuscular Volume 91.3 fl (81-99); Mean Platelet Volume 9.2 fl (7.4-10.4); Monocytes # 0.7 K/mm3 (0.1-1.0); Monocytes % 5.6 % (1.7-9.3); Neutrophils # 9.4 K/mm3 (1.8-7.8); Neutrophils % 71.6 % (37.0-80.0); Platelet Count 294 K/mm3 (142-424); Red Blood Count 4.27 M/mm3 (4.20-5.40); Red Cell Distribution Width 13.9 % (11.5-17.5); White Blood Count 13.1 K/mm3 (4.8-10.8)
[2022-10-27 14:45] LABS: D-Dimer 0.44 ug/mL (0.0-0.5)
[2022-10-27 14:53] LABS: NT Pro Brain Natriuretic Pep. 179 pg/mL (0-125)
[2022-10-27 14:56] LABS: Troponin I < 0.01 ng/ml (0.00-0.034)
[2022-10-27 15:12] LABS: HCG Qualitative, Serum Negative (Negative)
--- NOTE | 2022-10-27 16:11 | EXP.CARD.CON ---
History of Present Illness History of Present Illness Consult date: 10/27/22 Requesting physician: Fadi Whitney Consult reason: chest pain Chief complaint: chest pain History of present illness: This is a 42-year-old white female who presented to the emergency department with complaints of chest pain. She states that she was having substernal chest pressure that was radiating to her back and down her left arm. She states that she has had chest pain intermittently for the last several weeks but nothing as severe as it was today. She states that this was associated with shortness of breath and vomiting. She denies any diaphoresis. She denies any lower extremity edema. She denies any fever, chills, nausea, vomiting, diarrhea, PND or orthopnea. The patient has known coronary disease with recent stenting in August 2022 to her LAD for 100% occlusion. The patient did have persistent right coronary artery disease. Her initial troponin is negative. [facility] Disclaimer: The information contained in this section may have been updated after the patient was seen, as this information can be updated by other users. Medical History (Updated 10/27/22 @ 16:15 by Jennifer Hager APRN) Atypical angina Atypical chest pain Chest pain Coronary artery disease Dyspnea Family history of ischemic heart disease Heavy menstrual bleeding HLD (hyperlipidemia) Hypertensive disorder Obstructive sleep apnea syndrome Orthopnea Persistent dyspnea after COVID-19 Prediabetes Typical angina Unstable angina Surgical History (Updated 10/19/22 @ 13:57 by Lise Gregory DO) History of cervical spinal surgery Hx of cardiac cath Family History Other Asthma COPD (chronic obstructive pulmonary disease) Dementia Diabetes Hypertension Lung cancer Social History Smoking Status: Never smoker second hand exposure: Yes alcohol intake: never substance use type: denies use current occupational status: employed Travel in the last 8 weeks: None household members: family housing: house current occupation: gerard current occupational exposures/hazards: No caffeine: No Review of Systems Review of Systems Review of systems:: pertinent systems reviewed and negative unless documented below Constitutional Constitutional: Reports system reviewed and no additional complaints, except as documented and Denies headache(s) Eyes Eyes: Reports system reviewed and no additional complaints, except as documented ENT Ears, Nose, Mouth, and Throat: Reports system reviewed and no additional complaints, except as documented and Denies headache(s) *Cardiovascular Cardiovascular: Reports system reviewed and no additional complaints, except as documented, Reports chest pain, Reports chest pain at rest, Reports chest pain with activity, Reports dyspnea, Reports dyspnea on exertion and Reports radiating jaw, neck or arm pain *Respiratory Respiratory: Reports system reviewed and no additional complaints, except as documented, Reports dyspnea and Reports dyspnea on exertion *Gastrointestinal Gastrointestinal: Reports system reviewed and no additional complaints, except as documented, Reports nausea and Reports vomiting *Genitourinary Genitourinary: Reports system reviewed and no additional complaints, except as documented *Musculoskeletal Musculoskeletal: Reports system reviewed and no additional complaints, except as documented Integumentary/Breasts Skin/Breast: Reports system reviewed and no additional complaints, except as documented *Neurologic Neurologic: Denies headache(s) Psychiatric Psychiatric: Reports system reviewed and no additional complaints, except as documented Endocrine Endocrine: Reports system reviewed and no additional complaints, except as documented Hematologic/Lymphatic Hematologic/Lymphatic: Reports system reviewed and no additional co
[2022-10-27 16:24] LABS: Coronavirus 19, PCR Not Detected (NotDetected); Influenza A, PCR Not Detected (NotDetected); Influenza B, PCR Not Detected (NotDetected)
--- NOTE | 2022-10-27 17:46 | PC.NURSE ---
waiting on second floor staff to call back to get report
--- NOTE | 2022-10-27 17:53 | PC.NURSE ---
report called to quirino allen on second floor. states she will send staff down to transport.
--- NOTE | 2022-10-27 18:12 | EXP.HP ---
History of Present Illness *Admission Date: 10/27/22 *Reason for visit:: chest pain *History of present illness: Ms. Marmolejo is a pleasant 42-year-old female with a recent left heart cath and identification of severe proximal LAD occlusion. Required stenting on 09/15/2022. She presented the emergency room today with complaint of chest pain. States that chest pain has been radiating to her back and down her left arm. Hurts when she takes a deep breath. Been intermittent for the past several weeks but not as severe as it has been in the past 1 to 2 days. Associated with some shortness of breath and vomiting. Denies any syncope, confusion, palpitations. No increase in lower extremity edema. No fever, chills. Has had some loose stools per her report, last bowel movement today. In the ER, initial troponin negative. Given recent stenting and significance of reported clinical symptoms, cardiology was consulted. They recommend admission overnight with observation. Medicine consulted for admission. Patient evaluated after arriving to the floor, states that she feels somewhat better after receiving sublingual nitro. Stable on room air. Blood pressure well controlled. Family at bedside. Reports she has been taking omeprazole at home with some slight improvement in her abdominal/chest discomfort when she takes it. [facility] Disclaimer: The information contained in this section may have been updated after the patient was seen, as this information can be updated by other users. Medical History Atypical angina Atypical chest pain Chest pain Coronary artery disease Dyspnea Family history of ischemic heart disease Heavy menstrual bleeding HLD (hyperlipidemia) Hypertensive disorder Obstructive sleep apnea syndrome Orthopnea Persistent dyspnea after COVID-19 Prediabetes Typical angina Unstable angina Surgical History History of cervical spinal surgery Hx of cardiac cath Family History Diabetes Dementia Lung cancer COPD (chronic obstructive pulmonary disease) Hypertension Asthma Social History Smoking Status: Never smoker second hand exposure: Yes alcohol intake: never substance use type: denies use current occupational status: employed Travel in the last 8 weeks: None household members: family housing: house current occupation: gerard current occupational exposures/hazards: No caffeine: No Review of Systems Review of Systems Review of systems (narrative): 14 point review of systems performed, pertinent positives and negatives as per HPI Constitutional Constitutional: Denies headache(s) ENT Ears, Nose, Mouth, and Throat: Denies headache(s) *Neurologic Neurologic: Denies headache(s) Meds Home Medications and Allergies Home Medications Medication Instructions Recorded Confirmed Type albuterol sulfate 90 mcg/actuation 2 inh inhalation Q6H PRN shortness 08/17/22 10/19/22 Rx aerosol inhaler of breath or wheezing 90 days #8.5 grams bclmcnctma-flnsinpnxygdj-grbbyurd 1 tab PO Q4-6H PRN . 08/26/22 10/19/22 History 50 mg-325 mg-40 mg tablet trazodone 50 mg tablet 50 mg PO DAILY PRN . 08/26/22 10/19/22 History aspirin 81 mg tablet,delayed 81 mg PO DAILY . 09/09/22 10/19/22 History release (Adult Low Dose Aspirin) atorvastatin 80 mg tablet (Lipitor) 80 mg PO HS 30 days #30 tabs 09/15/22 10/19/22 Rx clopidogrel 75 mg tablet (Plavix) 75 mg PO DAILY #31 tabs 09/15/22 10/19/22 Rx fluticasone propionate 115 2 puff inhalation BID . 09/15/22 10/19/22 History mcg-salmeterol 21 mcg/actuation HFA inhaler (Advair HFA) isosorbide mononitrate 30 mg 30 mg PO DAILY 30 days #30 tabs 09/15/22 10/19/22 Rx tablet,extended release 24 hr ondansetron 4 mg disintegrating 4 mg PO Q6H PRN nausea and
[2022-10-27 18:14] LABS: Troponin I < 0.01 ng/ml (0.00-0.034)
[2022-10-27 19:58] LABS: Lipase 91 U/L (23-300)
[2022-10-27 23:24] LABS: Troponin I < 0.01 ng/ml (0.00-0.034)
[2022-10-28] VITALS: BP 126/65; PULSE 60; PULSE 76; RESP 18; TEMP 37.1; O2SAT 97
[2022-10-28 04:00] VITALS: BP 124/74; PULSE 60; PULSE 61; RESP 18; TEMP 36.6; O2SAT 98; BMI 40.4
--- NOTE | 2022-10-28 07:25 | EXP.PN ---
Subjective *Date: 10/28/22 *Time: 07:25 Interval history: Date of service October 28, 2022 Exam Data for Last 24 hours Vital signs and Labs for Last 24 Hours: Temp Pulse Resp BP Pulse Ox 97.9 F 61 18 124/74 98 10/28/22 04:00 10/28/22 04:00 10/28/22 04:00 10/28/22 04:00 10/28/22 04:00 Laboratory Results - last 24 hr 10/27/22 14:19: WBC 13.1 H, RBC 4.27, Hgb 13.2, Hct 39.0, MCV 91.3, MCH 30.9, MCHC 33.8, RDW 13.9, Plt Count 294, MPV 9.2, Neut % (Auto) 71.6, Lymph % (Auto) 20.1, [place] % (Auto) 5.6, Eos % (Auto) 1.7, Baso % (Auto) 0.9, Neut # (Auto) 9.4 H, Lymph # (Auto) 2.6, [place] # (Auto) 0.7, Eos # (Auto) 0.2, Baso # (Auto) 0.1 10/27/22 14:19: Sodium 138, Potassium 3.8, Chloride 108 H, Carbon Dioxide 26, Anion Gap 7.8, BUN 15, Creatinine 0.70, Estimated GFR 92, Est GFR ( Amer) 112, Glucose 95, Calcium 8.8, Total Bilirubin 0.2, AST 26, ALT 26, Alkaline Phosphatase 99, Troponin I < 0.01, NT-Pro-B Natriuret Pep 179 H, Total Protein 7.0, Albumin 4.1, Globulin 2.9, Albumin/Globulin Ratio 1.4 10/27/22 14:19: Serum HCG, Qual Negative 10/27/22 14:19: D-Dimer 0.44 10/27/22 16:01: SARS-CoV-2 (PCR) Not detected, Influenza A Untype (PCR) Not detected, Influenza Type B (PCR) Not detected 10/27/22 17:40: Troponin I < 0.01 10/27/22 17:40: Lipase 91 10/27/22 20:29: Troponin I < 0.01 I & O for Last 24 hours: Intake & Output 02/0610/26/22 10/27/22 10/28/22 23:59 23:59 23:59 23:59 Output Total 0 / 0 0 / 0 Balance 0 / 0 0 / 0 Weight 113.937 kg 114.124 kg
[2022-10-28 07:32] VITALS: BP 123/78; PULSE 76; RESP 19; TEMP 36.8; O2SAT 97
[2022-10-28 07:40] LABS: Basophils # 0.1 K/mm3 (0-0.2); Basophils % 0.7 % (0.1-2.0); Eosinophils # 0.2 K/mm3 (0.0-0.4); Eosinophils % 1.5 % (0.1-12.0); Hemoglobin 12.6 g/dL (12.2-16.2); Lymphocytes # 2.1 K/mm3 (0.7-4.5); Lymphocytes % 18.4 % (10-50); Mean Corpuscular HGB Conc 32.3 g/dL (31.8-35.4); Mean Corpuscular Hemoglobin 29.9 pg (27.0-31.2); Mean Corpuscular Volume 92.5 fl (81-99); Mean Platelet Volume 9.4 fl (7.4-10.4); Monocytes # 0.7 K/mm3 (0.1-1.0); Monocytes % 5.7 % (1.7-9.3); Neutrophils # 8.6 K/mm3 (1.8-7.8); Neutrophils % 73.7 % (37.0-80.0); Platelet Count 277 K/mm3 (142-424); Red Blood Count 4.22 M/mm3 (4.20-5.40); White Blood Count 11.6 K/mm3 (4.8-10.8)
[2022-10-28 07:46] LABS: Chloride 108 mmol/L (98-107)
[2022-10-28 07:47] LABS: Potassium 4.2 mmoL/L (3.5-5.1); Sodium 141 mmol/L (136-145)
[2022-10-28 07:49] LABS: Blood Urea Nitrogen 16 mg/dl (7-17); Creatinine Clearance Estimated 191 mL/min (50-200); Estimated Glomerular Filt Rate 92 ml/min (>60); GFR (African American) 112 ML/MIN (>60)
[2022-10-28 07:50] LABS: Alanine Aminotransferase 24 U/L (12-78); Albumin Level 3.8 g/dl (3.5-5.0); Albumin/Globulin Ratio 1.3 (1.1-1.8); Alkaline Phosphatase 101 U/L (38-126); Anion Gap 8.2 mEq/L (5-15); Aspartate Amino Transferase 26 U/L (14-36); Bilirubin,Total 0.4 mg/dl (0.2-1.3); Calcium 8.5 mg/dl (8.4-10.2); Carbon Dioxide 29 mmol/L (22.0-30.0); Globulin 2.9 g/dL (1.3-3.2); Glucose 88 mg/dl (74-100); Total Protein,Serum 6.7 g/dl (6.3-8.2)
--- NOTE | 2022-10-28 08:22 | HMH.PHAINT1 ---
Pharmacy Intervention Comments: medication reconciliation completed utilizing external fill history
[2022-10-28 08:31] LABS: Chol/HDL Ratio 3.4 (1-3.5); Cholesterol 114 mg/dl (140-200); HDL Cholesterol 34 mg/dl (40-60); Triglycerides 122 mg/dl (30-150); VLDL Cholesterol 24 mg/dL (0-40)
[2022-10-28 08:42] LABS: Direct LDL Cholesterol 65.41 mg/dL (100-129)
--- NOTE | 2022-10-28 11:55 | HMH.PHAINT1 ---
Pharmacy Intervention Comments: Counseled patient on discharge medications. Patient verbalized understanding and had no questions at this time
--- NOTE | 2022-10-28 11:57 | EXP.DC.SUM ---
General Admission date:: 10/27/22 Discharge date: 10/28/22 HPI HPI HPI: Ms. Marmolejo is a pleasant 42-year-old female with a recent left heart cath and identification of severe proximal LAD occlusion. Required stenting on 09/15/2022. She presented the emergency room today with complaint of chest pain. States that chest pain has been radiating to her back and down her left arm. Hurts when she takes a deep breath. Been intermittent for the past several weeks but not as severe as it has been in the past 1 to 2 days. Associated with some shortness of breath and vomiting. Denies any syncope, confusion, palpitations. No increase in lower extremity edema. No fever, chills. Has had some loose stools per her report, last bowel movement today. In the ER, initial troponin negative. Given recent stenting and significance of reported clinical symptoms, cardiology was consulted. They recommend admission overnight with observation. Medicine consulted for admission. Patient evaluated after arriving to the floor, states that she feels somewhat better after receiving sublingual nitro. Stable on room air. Blood pressure well controlled. Family at bedside. Reports she has been taking omeprazole at home with some slight improvement in her abdominal/chest discomfort when she takes it. Hospital Course Hospital Course Hospital Course: The patient was admitted to the medical floor with telemetry monitoring cardiology consult. Her medical therapy was augmented and Ranexa was added. Her laboratory studies were trended including a troponin trend which was negative. The patient identified improvement and experienced no further chest pain. She inquired about discharge home. She will be discharged to follow-up with her PCP in 1 week and cardiology as scheduled. She will continue with her dual antiplatelet therapy, high-dose statin therapy and other home medications. I spent 35 minutes in [id number] time with the patient and nursing staff concerning the discharge process. We discussed the admitting diagnoses and hospital course. We discussed identified improvement and the patient's desire to be discharged. We reviewed inpatient studies and imaging. The patient voiced understanding on the importance of follow-up with her primary care provider and radiological health specialist(s). The patient plans to be compliant with the medication regimen prescribed and follow-up appointments. She understands that she can return to the emergency department with any sudden changes or concerns. Exam Data for Last 24 hours Vital signs and Labs for Last 24 Hours: Temp Pulse Resp BP Pulse Ox 98.2 F 76 19 123/78 97 10/28/22 07:32 10/28/22 07:32 10/28/22 07:32 10/28/22 07:32 10/28/22 07:32 Laboratory Results - last 24 hr 10/27/22 14:19: WBC 13.1 H, RBC 4.27, Hgb 13.2, Hct 39.0, MCV 91.3, MCH 30.9, MCHC 33.8, RDW 13.9, Plt Count 294, MPV 9.2, Neut % (Auto) 71.6, Lymph % (Auto) 20.1, [place] % (Auto) 5.6, Eos % (Auto) 1.7, Baso % (Auto) 0.9, Neut # (Auto) 9.4 H, Lymph # (Auto) 2.6, [place] # (Auto) 0.7, Eos # (Auto) 0.2, Baso # (Auto) 0.1 10/27/22 14:19: Sodium 138, Potassium 3.8, Chloride 108 H, Carbon Dioxide 26, Anion Gap 7.8, BUN 15, Creatinine 0.70, Estimated GFR 92, Est GFR ( Amer) 112, Glucose 95, Calcium 8.8, Total Bilirubin 0.2, AST 26, ALT 26, Alkaline Phosphatase 99, Troponin I < 0.01, NT-Pro-B Natriuret Pep 179 H, Total Protein 7.0, Albumin 4.1, Globulin 2.9, Albumin/Globulin Ratio 1.4 10/27/22 14:19: Serum HCG, Qual Negative 10/27/22 14:19: D-Dimer 0.44 10/27/22 16:01: SARS-CoV-2 (PCR) Not detected, Influenza A Untype (PCR) Not detected, Influenza Type B (PCR) Not detected 10/27/22 17:40: Troponin I < 0.01 10/27/22 17:40: Lipase 91 10/27/22 20:29: Troponin I < 0.01 10/28/22 06:35: Triglycerides 122, Cholesterol 114 L, LDL Cholesterol Direct 65.41 L, VLDL Cholesterol 24, HDL Cholesterol 34 L, Cholesterol/HDL Ratio 3.4 10/28/22 06:35: WBC 11.6 H, RBC 4.22, Hgb 12.6,
--- NOTE | 2022-10-28 12:03 | EXP.CARD.PN ---
Subjective Subjective Date: 10/28/22 Time: 10:30 Principal diagnosis: angina Interval history: This is a 42-year-old white female presents to the emergency department complaints of chest pain. The patient was admitted for observation and serial troponins. She has ruled out for an TN. She states that her chest pain and pressure is much better than it was yesterday. She states that she is still having some substernal pressure radiating into her back and her left arm. She states that this has significantly improved overnight. She denies any lower extremity edema. She denies any fever, chills, nausea, vomiting, diarrhea, PND or orthopnea. The patient does have some shortness of breath associated with her chest pain. Exam Data for Last 24 hours Vital signs and Labs for Last 24 Hours: Temp Pulse Resp BP Pulse Ox 98.2 F 76 19 123/78 97 10/28/22 07:32 10/28/22 07:32 10/28/22 07:32 10/28/22 07:32 10/28/22 07:32 Laboratory Results - last 24 hr 10/27/22 14:19: WBC 13.1 H, RBC 4.27, Hgb 13.2, Hct 39.0, MCV 91.3, MCH 30.9, MCHC 33.8, RDW 13.9, Plt Count 294, MPV 9.2, Neut % (Auto) 71.6, Lymph % (Auto) 20.1, [place] % (Auto) 5.6, Eos % (Auto) 1.7, Baso % (Auto) 0.9, Neut # (Auto) 9.4 H, Lymph # (Auto) 2.6, [place] # (Auto) 0.7, Eos # (Auto) 0.2, Baso # (Auto) 0.1 10/27/22 14:19: Sodium 138, Potassium 3.8, Chloride 108 H, Carbon Dioxide 26, Anion Gap 7.8, BUN 15, Creatinine 0.70, Estimated GFR 92, Est GFR ( Amer) 112, Glucose 95, Calcium 8.8, Total Bilirubin 0.2, AST 26, ALT 26, Alkaline Phosphatase 99, Troponin I < 0.01, NT-Pro-B Natriuret Pep 179 H, Total Protein 7.0, Albumin 4.1, Globulin 2.9, Albumin/Globulin Ratio 1.4 10/27/22 14:19: Serum HCG, Qual Negative 10/27/22 14:19: D-Dimer 0.44 10/27/22 16:01: SARS-CoV-2 (PCR) Not detected, Influenza A Untype (PCR) Not detected, Influenza Type B (PCR) Not detected 10/27/22 17:40: Troponin I < 0.01 10/27/22 17:40: Lipase 91 10/27/22 20:29: Troponin I < 0.01 10/28/22 06:35: Triglycerides 122, Cholesterol 114 L, LDL Cholesterol Direct 65.41 L, VLDL Cholesterol 24, HDL Cholesterol 34 L, Cholesterol/HDL Ratio 3.4 10/28/22 06:35: WBC 11.6 H, RBC 4.22, Hgb 12.6, Hct 39.0, MCV 92.5, MCH 29.9, MCHC 32.3, RDW 14.0, Plt Count 277, MPV 9.4, Neut % (Auto) 73.7, Lymph % (Auto) 18.4, [place] % (Auto) 5.7, Eos % (Auto) 1.5, Baso % (Auto) 0.7, Neut # (Auto) 8.6 H, Lymph # (Auto) 2.1, [place] # (Auto) 0.7, Eos # (Auto) 0.2, Baso # (Auto) 0.1 10/28/22 06:35: Sodium 141, Potassium 4.2, Chloride 108 H, Carbon Dioxide 29, Anion Gap 8.2, BUN 16, Creatinine 0.70, Estimated Creat Clear 191, Estimated GFR 92, Est GFR ( Amer) 112, Glucose 88, Calcium 8.5, Magnesium 2.0, Total Bilirubin 0.4, AST 26, ALT 24, Alkaline Phosphatase 101, Total Protein 6.7, Albumin 3.8, Globulin 2.9, Albumin/Globulin Ratio 1.3 I & O for Last 24 hours: Intake & Output 10/25/22 10/26/22 10/27/22 10/28/22 23:59 23:59 23:59 23:59 Intake Total 0 / 0 Output Total 0 / 0 0 / 0 Balance 0 / 0 0 / 0 Weight 251 lb 3 oz 251 lb 9.6 oz Constitutional Constitutional: no acute distress and morbidly obese *Routine HEENT Exam Head: Present normocephalic and atraumatic ENT: Present mucous membranes moist *Routine Neck Exam Neck: Present supple, full ROM and normal carotid upstroke; Absent JVD, carotid bruit or lymphadenopathy *Routine Respiratory Exam Respiratory: Present CTA bilaterally, normal respiratory effort, able to speak in complete sentences and symmetric chest movement *Routine Cardiovascular Exam Cardiovascular: Present RRR, Normal S1 and Normal S2; Absent murmur or gallop *Routine Abdominal Exam Abdominal: Present soft and normoactive bowel sounds; Absent tenderness, distended or organomegaly *Routine Extremities Exam Extremities: Present full ROM, pulses intact and normal capillary refill; Absent cyanosis, clubbing or edema *Routine Skin Exam Skin: Present intact and warm; Absent erythema *Routine Neurological Exam Neurological: P
--- NOTE | 2022-10-29 14:16 | CARE MANAGER ---
Contacted patient related to hospital discharge. Patient states she is tired, but ok. She picked up her new medications and denies any questions or concerns. She is aware of her follow up appointments. SIOBHAN Guzman
== END 2022-10-28 12:10 | disposition home or self-care (01) ==
LOC: ER 15:54 → 2ND 18:09
PROVIDERS: Nurse Practitioner Family; Admitting Provider Internal Medicine Adolescent Medicine; Emergency Provider Emergency Medicine; PCP Family Medicine; Visit Provider Internal Medicine Adolescent Medicine
DX: I25.110 Atherosclerotic heart disease of native coronary artery with unstable angina pectoris (principal); I10 Essential (primary) hypertension; G47.33 Obstructive sleep apnea (adult) (pediatric); F41.9 Anxiety disorder, unspecified; E78.2 Mixed hyperlipidemia; Z79.899 Other long term (current) drug therapy; Z82.49 Family history of ischemic heart disease and other diseases of the circulatory system; R07.9 Chest pain, unspecified; Z86.16 Personal history of COVID-19; J44.9 Chronic obstructive pulmonary disease, unspecified; Z95.5 Presence of coronary angioplasty implant and graft; I25.82 Chronic total occlusion of coronary artery
CPT/HCPCS: 36415; 71045; 80053; 80061; 83690; 83735; 83880; 84484; 84703; 85025; 85378; 93005; 99285; C9803; G0378; U0003; U0005

== ENCOUNTER → 2022-11-01 08:49 | Outpatient (CLI) | payer BC, SELFPAY ==
[2022-11-01 08:57] LABS: Microscopic, Urine URINE MICROSCOPIC (MICROSCOPIC)
[2022-11-01 09:38] LABS: Basophils # 0.1 K/mm3 (0-0.2); Basophils % 0.8 % (0.1-2.0); Eosinophils # 0.2 K/mm3 (0.0-0.4); Eosinophils % 1.7 % (0.1-12.0); Hematocrit 42.2 % (37.0-47.0); Hemoglobin 13.6 g/dL (12.2-16.2); Lymphocytes # 1.8 K/mm3 (0.7-4.5); Mean Corpuscular HGB Conc 32.2 g/dL (31.8-35.4); Mean Corpuscular Volume 89.8 fl (81-99); Mean Platelet Volume 9.1 fl (7.4-10.4); Monocytes # 0.6 K/mm3 (0.1-1.0); Monocytes % 5.1 % (1.7-9.3); Neutrophils # 9.4 K/mm3 (1.8-7.8); Neutrophils % 77.4 % (37.0-80.0); Platelet Count 313 K/mm3 (142-424); Red Cell Distribution Width 14.2 % (11.5-17.5); White Blood Count 12.2 K/mm3 (4.8-10.8)
[2022-11-01 09:48] LABS: Appearance,Urine CLEAR (Clear); Bilirubin,Urine Negative (Negative); Blood, Urine Negative (Negative); Color,Urine YELLOW (Yellow); Glucose,Urine (UA) Negative (Negative); Ketones,Urine Negative (Negative); Leukocyte Esterase,Urine Negative (Negative); Nitrate,Urine Negative (Negative); PH,Urine 6.5 (5.0-8.5); Protein,Urine Negative (Negative); Urobilinogen,Urine 0.2 EU/dl (0.2)
[2022-11-01 09:49] LABS: Hemoglobin A1C 5.5 % (4.0-6.0)
[2022-11-01 10:10] LABS: Bacteria,Urine 2+ /lpf; WBC,Urine Occasional #/hpf (0-3)
[2022-11-01 10:20] LABS: Alanine Aminotransferase 25 U/L (12-78); Albumin Level 4.3 g/dl (3.5-5.0); Alkaline Phosphatase 107 U/L (38-126); Aspartate Amino Transferase 20 U/L (14-36); Bilirubin,Direct 0.1 mg/dl (0.0-0.4); Bilirubin,Indirect 0.2 mg/dL (0.0-0.9); Bilirubin,Total 0.3 mg/dl (0.2-1.3); Bilirubin,Unconjugated 0.2 mg/dL (0.0-1.1); Cholesterol 118 mg/dl (140-200); HDL Cholesterol 39 mg/dl (40-60); Total Protein,Serum 7.2 g/dl (6.3-8.2); Triglycerides 108 mg/dl (30-150); VLDL Cholesterol 22 mg/dL (0-40)
[2022-11-01 10:22] LABS: Alanine Aminotransferase 26 U/L (12-78); Albumin Level 4.3 g/dl (3.5-5.0); Albumin/Globulin Ratio 1.5 (1.1-1.8); Alkaline Phosphatase 105 U/L (38-126); Anion Gap 13.6 mEq/L (5-15); Aspartate Amino Transferase 20 U/L (14-36); Bilirubin,Total 0.4 mg/dl (0.2-1.3); Blood Urea Nitrogen 19 mg/dl (7-17); Calcium 8.9 mg/dl (8.4-10.2); Carbon Dioxide 24 mmol/L (22.0-30.0); Chloride 104 mmol/L (98-107); Estimated Glomerular Filt Rate 79 ml/min (>60); GFR (African American) 96 ML/MIN (>60); Globulin 2.8 g/dL (1.3-3.2); Glucose 97 mg/dl (74-100); Potassium 4.6 mmoL/L (3.5-5.1); Sodium 137 mmol/L (136-145); Total Protein,Serum 7.1 g/dl (6.3-8.2)
[2022-11-01 10:31] LABS: Direct LDL Cholesterol 63.62 mg/dL (100-129)
[2022-11-01 10:52] LABS: Thyroid Stimulating Hormone 2.14 uIU/mL (0.465-4.68)
== END ==
PROVIDERS: PCP Family Medicine; Referring Provider Internal Medicine; Visit Provider Family Medicine
DX: R06.09 Other forms of dyspnea (principal); I20.8 Other forms of angina pectoris; I11.9 Hypertensive heart disease without heart failure; E78.5 Hyperlipidemia, unspecified; R73.03 Prediabetes; D72.829 Elevated white blood cell count, unspecified; R60.9 Edema, unspecified; G47.33 Obstructive sleep apnea (adult) (pediatric); Z82.49 Family history of ischemic heart disease and other diseases of the circulatory system
CPT/HCPCS: 36415; 80053; 80061; 80076; 81001; 83036; 84443; 85025; 87086

== ENCOUNTER → 2022-11-03 12:49 | Outpatient (CLI) | payer BC, SELFPAY ==
--- NOTE | 2022-11-03 12:49 | MM_ITS ---
PROCEDURE INFORMATION: Exam: MG Bilateral Screening 3D Mammography Exam date and time: 11/03/2022 12:54 PM Age: 42 years old Clinical indication: Screening examination. Maternal grandmother as well as maternal and paternal aunts had breast cancer. TECHNIQUE: Imaging protocol: Bilateral Screening tomosynthesis and 2D mammography including computer-aided detection (CAD) when performed. COMPARISON: 1. MG MM DIG MAMM BI DX W/CAD 03/03/2021 8:46 AM 2. US BREAST RT COMPLETE 03/03/2021 9:50 AM FINDINGS: MAMMOGRAPHY: Breast composition: There are scattered areas of fibroglandular density. Mass: No suspicious mass. Architectural distortion: None. Calcifications: No suspicious calcifications. Asymmetric density: None. Skin thickening: None. Axillary adenopathy: None. IMPRESSION: No mammographic evidence of malignancy. Annual screening is recommended unless otherwise clinically indicated. ASSESSMENT: BI-RADS Category 1: Negative
== END ==
PROVIDERS: PCP Family Medicine; Visit Provider Family Medicine
DX: Z12.31 Encounter for screening mammogram for malignant neoplasm of breast (principal)
CPT/HCPCS: 77063; 77067

== ENCOUNTER 2022-11-04 08:40 | Day surgery (SDC) | payer BC, SELFPAY ==
[2022-11-04] VITALS (16 sets, daily range): BP systolic 109–138; BP diastolic 46–95; PULSE 66–80; RESP 17–18; TEMP 36.9; O2SAT 92–98; BMI 39.2
--- NOTE | 2022-11-04 | IR_ITS ---
APPROVED REPORT Patient Location: Outpatient Cardiac Nurse Practitioner: CRESENCIO Bray RT (R) PROCEDURES Left heart catheterization Left ventriculogram Selective coronary angiogram Drug-eluting stent deployment to the proximal large ramus intermedius Informed consent was obtained prior to the procedure. COMPLICATIONS None Estimated Blood Loss: Less than 10 mls TECHNIQUE One percent lidocaine used to anesthetize the right anterior aspect of the wrist. The right radial artery was accessed via the Seldinger technique. A 6 [place] sheath was placed in the right radial artery. 2.5 mg of verapamil, 800 mcg of nitroglycerin, 1mg Lidocaine and 5000 U Heparin were given through the arterial sheath. The papa catheter was also used to perform left heart catheterization, left ventriculogram and selective coronary angiogram. At the end the diagnostic angiogram therapeutic heparin was administered giving a therapeutic ACT and the guide catheter was placed in left main artery followed by Choice PT extra-support wire being placed on the ramus intermedius. Primary stenting could not be performed therefore a 2.5 x 12 mm noncompliant balloon was deployed at 20 traci to predilate the surprisingly calcified concentric stenosis. Following this a 2.5 x 18 mm resolute Cole stent was delivered with some difficulty due to the calcification. Once in place the stent was deployed at 22 traci reducing the severe calcified critical stenosis to 0%. LONA-3 flow was present before and after the procedure. At the end the procedure the apparatus was removed the sheath was removed and hemostasis was achieved using TR banding patient was transferred to the postop putting in stable condition ANGIOGRAPHIC RESULTS The left main artery Normal The left anterior descending artery Has a stent in the proximal to mid segment which is widely patent free of in-stent restenosis. Immediately distal to the stent a large bifurcating septal set rider originates along with the [facility]. croix LAD. The [place] croix LAD is less than 2 mm in diameter distal to the stent. There appears to be a 50% concentric stenosis immediately adjacent to the septal set rider within the LAD The circumflex artery Gives rise to large ramus intermedius which has a proximal concentric calcified 90% stenosis. The remaining circumflex artery has 30% stenosis in the terminal obtuse marginal artery with mild diffuse 10% luminal regularities The right coronary artery Dominant with diffuse 10 to 20% luminal irregularities The SOLORIO ventriculogram reveals Preserved 60% The left ventricular end-diastolic pressure 15 mmHg IMPRESSION Severe disease in a large ramus intermedius with successful stenting of a surprisingly calcified severely stenosed vessel reducing the stenosis to 0% with 1 drug-eluting stent Patent proximal LAD Moderate stenosis in a less than 2 mm mid LAD Preserved ejection fraction Borderline LVEDP PLAN 1. Dual antiplatelet therapy 2. Maximize antianginal medication 3. Cardiac rehabilitation 4. Avoidance of tobacco products 5. Aggressive risk factor modification Electronically signed by : Claude Whitley MD 11/04/2022 11:04:48
[2022-11-04 11:27] LABS: CATHL Activated Clotting Time 345 SEC (74-125)
--- NOTE | 2022-11-04 13:06 | P.CONPHA_ITS ---
PHA Health Information Systems Technician Discharge Med Escort Vehicle Driver: Krissy Roberson has received discharge medication counseling on the following medications: ATORVASTATIN 80 MG HS ASPIRIN [address] DAILY CLOPIDOGREL 75 MG DAILY LOSARTAN 50 MG DAILY METOPROLOL 100 MG BID
== END 2022-11-04 14:23 | disposition home or self-care (01) ==
PROVIDERS: PCP Family Medicine; Visit Provider Internal Medicine
DX: R07.9 Chest pain, unspecified (principal); Z79.899 Other long term (current) drug therapy; I25.110 Atherosclerotic heart disease of native coronary artery with unstable angina pectoris; I10 Essential (primary) hypertension; Z86.16 Personal history of COVID-19; G47.33 Obstructive sleep apnea (adult) (pediatric); Z82.49 Family history of ischemic heart disease and other diseases of the circulatory system; E78.5 Hyperlipidemia, unspecified
CPT/HCPCS: 85347; 92928; 93458; 99152; C1725; C1769; C1876; C9600; J1644; Q9967

== ENCOUNTER → 2022-11-09 14:16 | Outpatient (CLI) | payer BC, SELFPAY | PROVIDERS: PCP Family Medicine; Visit Provider Family Medicine | DX: G47.33 Obstructive sleep apnea (adult) (pediatric) (principal); R06.83 Snoring | CPT/HCPCS: G0399 ==

== ENCOUNTER → 2022-11-10 10:47 | Outpatient (CLI) | payer BC, SELFPAY ==
[2022-11-10 12:12] LABS: Basophils # 0.1 K/mm3 (0-0.2); Basophils % 0.9 % (0.1-2.0); Eosinophils # 0.5 K/mm3 (0.0-0.4); Eosinophils % 4.4 % (0.1-12.0); Hematocrit 40.7 % (37.0-47.0); Hemoglobin 12.8 g/dL (12.2-16.2); Lymphocytes # 1.6 K/mm3 (0.7-4.5); Lymphocytes % 15.5 % (10-50); Mean Corpuscular HGB Conc 31.4 g/dL (31.8-35.4); Mean Corpuscular Hemoglobin 28.5 pg (27.0-31.2); Monocytes # 0.6 K/mm3 (0.1-1.0); Monocytes % 5.5 % (1.7-9.3); Neutrophils # 7.5 K/mm3 (1.8-7.8); Neutrophils % 73.7 % (37.0-80.0); Platelet Count 294 K/mm3 (142-424); Red Blood Count 4.47 M/mm3 (4.20-5.40); Red Cell Distribution Width 14.2 % (11.5-17.5); White Blood Count 10.2 K/mm3 (4.8-10.8)
[2022-11-10 12:44] LABS: Chloride 105 mmol/L (98-107)
[2022-11-10 12:45] LABS: Potassium 4.5 mmoL/L (3.5-5.1); Sodium 140 mmol/L (136-145)
[2022-11-10 12:47] LABS: Blood Urea Nitrogen 15 mg/dl (7-17); Estimated Glomerular Filt Rate 92 ml/min (>60); GFR (African American) 112 ML/MIN (>60)
[2022-11-10 12:48] LABS: Anion Gap 12.5 mEq/L (5-15); Carbon Dioxide 27 mmol/L (22.0-30.0); Glucose 95 mg/dl (74-100)
== END ==
PROVIDERS: PCP Family Medicine; Visit Provider Internal Medicine
DX: I25.10 Atherosclerotic heart disease of native coronary artery without angina pectoris (principal); Z48.89 Encounter for other specified surgical aftercare
CPT/HCPCS: 36415; 80048; 85025

== ENCOUNTER → 2022-12-10 13:43 | Outpatient (CLI) | payer BC, SELFPAY ==
[2022-12-10 15:08] LABS: Basophils # 0.1 K/mm3 (0-0.2); Basophils % 0.7 % (0.1-2.0); Eosinophils # 0.1 K/mm3 (0.0-0.4); Eosinophils % 1.2 % (0.1-12.0); Hematocrit 39.8 % (37.0-47.0); Hemoglobin 12.7 g/dL (12.2-16.2); Lymphocytes # 1.8 K/mm3 (0.7-4.5); Lymphocytes % 19.8 % (10-50); Mean Corpuscular HGB Conc 31.9 g/dL (31.8-35.4); Mean Corpuscular Hemoglobin 29.1 pg (27.0-31.2); Mean Corpuscular Volume 91.3 fl (81-99); Monocytes # 0.6 K/mm3 (0.1-1.0); Neutrophils # 6.4 K/mm3 (1.8-7.8); Neutrophils % 71.4 % (37.0-80.0); Platelet Count 325 K/mm3 (142-424); Red Blood Count 4.36 M/mm3 (4.20-5.40); Red Cell Distribution Width 14.5 % (11.5-17.5)
== END ==
PROVIDERS: PCP Family Medicine; Visit Provider Internal Medicine Medical Oncology
DX: D72.829 Elevated white blood cell count, unspecified (principal)
CPT/HCPCS: 36415; 85025; 88184; 88185; 88189

== ENCOUNTER → 2023-01-13 15:47 | Outpatient (CLI) | payer BC, SELFPAY ==
[2023-01-13 16:35] LABS: Chloride 104 mmol/L (98-107)
[2023-01-13 16:36] LABS: Potassium 4.3 mmoL/L (3.5-5.1); Sodium 138 mmol/L (136-145)
[2023-01-13 16:38] LABS: Blood Urea Nitrogen 15 mg/dl (7-17); Estimated Glomerular Filt Rate 61 ml/min (>60); GFR (African American) 74 ML/MIN (>60)
[2023-01-13 16:39] LABS: Anion Gap 10.3 mEq/L (5-15); Carbon Dioxide 28 mmol/L (22.0-30.0); Glucose 95 mg/dl (74-100)
== END ==
PROVIDERS: PCP Family Medicine; Visit Provider Nurse Practitioner Family
DX: R07.89 Other chest pain (principal); I25.110 Atherosclerotic heart disease of native coronary artery with unstable angina pectoris; I10 Essential (primary) hypertension; R60.9 Edema, unspecified; E78.2 Mixed hyperlipidemia; G47.33 Obstructive sleep apnea (adult) (pediatric)
CPT/HCPCS: 36415; 80048

== ENCOUNTER → 2023-01-21 15:47 | Outpatient (CLI) | payer BC, SELFPAY ==
[2023-01-21 17:10] LABS: Anion Gap 13.8 mEq/L (5-15); Blood Urea Nitrogen 20 mg/dl (7-17); Calcium 9.2 mg/dl (8.4-10.2); Carbon Dioxide 26 mmol/L (22.0-30.0); Chloride 100 mmol/L (98-107); Estimated Glomerular Filt Rate 79 ml/min (>60); GFR (African American) 96 ML/MIN (>60); Glucose 115 mg/dl (74-100); Potassium 3.8 mmoL/L (3.5-5.1); Sodium 136 mmol/L (136-145)
== END ==
PROVIDERS: PCP Family Medicine; Visit Provider Nurse Practitioner
DX: R07.89 Other chest pain (principal); I25.110 Atherosclerotic heart disease of native coronary artery with unstable angina pectoris; I10 Essential (primary) hypertension; E78.2 Mixed hyperlipidemia; R60.9 Edema, unspecified; G47.33 Obstructive sleep apnea (adult) (pediatric)
CPT/HCPCS: 36415; 80048

== ENCOUNTER → 2023-01-31 10:54 | Outpatient (CLI) | payer BC, SELFPAY ==
[2023-01-31 11:12] LABS: Basophils # 0.1 K/mm3 (0-0.2); Basophils % 0.6 % (0.1-2.0); Eosinophils # 0.1 K/mm3 (0.0-0.4); Eosinophils % 1.1 % (0.1-12.0); Hematocrit 41.1 % (37.0-47.0); Hemoglobin 13.3 g/dL (12.2-16.2); Lymphocytes # 1.8 K/mm3 (0.7-4.5); Mean Corpuscular HGB Conc 32.4 g/dL (31.8-35.4); Mean Corpuscular Hemoglobin 29.8 pg (27.0-31.2); Mean Corpuscular Volume 91.7 fl (81-99); Mean Platelet Volume 9.2 fl (7.4-10.4); Monocytes # 0.7 K/mm3 (0.1-1.0); Neutrophils # 8.7 K/mm3 (1.8-7.8); Neutrophils % 76.3 % (37.0-80.0); Platelet Count 318 K/mm3 (142-424); Red Blood Count 4.48 M/mm3 (4.20-5.40); Red Cell Distribution Width 14.5 % (11.5-17.5); White Blood Count 11.4 K/mm3 (4.8-10.8)
[2023-01-31 12:06] LABS: Alanine Aminotransferase 26 U/L (12-78); Albumin Level 4.4 g/dl (3.5-5.0); Albumin/Globulin Ratio 1.8 (1.1-1.8); Alkaline Phosphatase 108 U/L (38-126); Amylase 35 U/L (30-110); Anion Gap 16.2 mEq/L (5-15); Aspartate Amino Transferase 21 U/L (14-36); Bilirubin,Total 0.6 mg/dl (0.2-1.3); Blood Urea Nitrogen 16 mg/dl (7-17); Calcium 9.2 mg/dl (8.4-10.2); Carbon Dioxide 29 mmol/L (22.0-30.0); Chloride 96 mmol/L (98-107); Estimated Glomerular Filt Rate 79 ml/min (>60); GFR (African American) 95 ML/MIN (>60); Globulin 2.5 g/dL (1.3-3.2); Glucose 96 mg/dl (74-100); Lipase 95 U/L (23-300); Potassium 4.2 mmoL/L (3.5-5.1); Sodium 137 mmol/L (136-145); Total Protein,Serum 6.9 g/dl (6.3-8.2)
== END ==
PROVIDERS: PCP Family Medicine; Visit Provider Family Medicine
DX: R11.0 Nausea (principal)
CPT/HCPCS: 36415; 80053; 82150; 83690; 85025

== ENCOUNTER 2023-03-18 08:11 | Day surgery (SDC) | payer BC, SELFPAY ==
[2023-03-18] VITALS (10 sets, daily range): BP systolic 100–141; BP diastolic 38–104; PULSE 66–658; RESP 16–20; O2SAT 95–100; BMI 38.7
--- NOTE | 2023-03-18 07:10 | IR_ITS ---
APPROVED REPORT Patient Location: Outpatient Short Piece Handler: CRESENCIO Davis RT (R) PROCEDURES Left heart catheterization Left ventriculogram Selective coronary angiogram Drug-eluting stent deployment to the mid LAD Drug-eluting stent deployment to the proximal ramus intermedius INDICATION Known coronary disease, Accelerated angina pectoris Informed consent was obtained prior to the procedure. COMPLICATIONS None Estimated Blood Loss: Less than 10 ML TECHNIQUE One percent lidocaine used to anesthetize the right anterior aspect of the wrist. The right radial artery was accessed via the Seldinger technique. A 6 [place]yanese sheath was placed in the right radial artery. 150 mg magnesium sulfate, 800 mcg of nitroglycerin, 1mg Lidocaine and 5000 U Heparin were given through the arterial sheath. The papa catheter was also used to perform left heart catheterization, left ventriculogram and selective coronary angiogram. At the end the diagnostic angiogram therapeutic heparin was administered given therapeutic ACT and the guide catheter was placed in left main artery followed by Choice PT extra-support wire being placed distally down the LAD. A 2.25 x 12 mm Cole frontier stent was deployed at 18 traci reducing the focal stenosis to 0%. LONA-3 flow was present before and after the procedure. Following this an additional wire was placed into the ramus intermedius followed by a 2.5 x 15 mm [place] frontier stent deployed at 20 traci reducing the severe stenosis to 0%. LONA-3 flow was present before and after the procedure. At the end the procedure the apparatus was removed the sheath was removed and hemostasis was achieved using TR banding patient transferred to the postop holding in stable condition ANGIOGRAPHIC RESULTS The left main artery Normal The left anterior descending artery Has a stent in the proximal to mid segment is widely patent free of in-stent restenosis followed by mid vessel concentric 70 to 80% stenosis immediately distal to a septal core checker. The remaining vessel was small caliber and has diffuse 30% stenoses The circumflex artery Gives rise to a ramus intermedius which has a proximal to mid vessel concentric 70 to 80% stenosis. The true circumflex artery has 30 to 40% stenosis in the terminal small obtuse marginal artery The right coronary artery Is dominant and has diffuse 20 to 30% stenosis The SOLORIO ventriculogram reveals Preserved and normal at 55 to 60% The left ventricular end-diastolic pressure 15 mmHg IMPRESSION Severe two-vessel coronary artery disease as described above Successful stenting of the mid LAD severe disease reduced to 0% with 1 drug-eluting stent Successful stenting of the proximal to mid ramus intermedius severe disease reduced to 0% with 1 drug-eluting stent Preserved ejection fraction Borderline LVEDP PLAN 1. Dual antiplatelet therapy 2. Risk factor modification 3. Cardiac rehabilitation 4. Avoidance of tobacco products 5. LDL less than 55 to be achieved with high intensity statin Electronically signed by : Claude Whitley MD 03/18/2023 15:56:38
[2023-03-18 09:07] LABS: Basophils # 0.1 K/mm3 (0-0.2); Basophils % 0.6 % (0.1-2.0); Eosinophils # 0.1 K/mm3 (0.0-0.4); Eosinophils % 1.1 % (0.1-12.0); Hematocrit 40.2 % (37.0-47.0); Hemoglobin 12.5 g/dL (12.2-16.2); Lymphocytes # 1.6 K/mm3 (0.7-4.5); Lymphocytes % 13.7 % (10-50); Mean Corpuscular HGB Conc 31.1 g/dL (31.8-35.4); Mean Corpuscular Hemoglobin 29.4 pg (27.0-31.2); Mean Corpuscular Volume 94.4 fl (81-99); Monocytes # 0.8 K/mm3 (0.1-1.0); Monocytes % 7.1 % (1.7-9.3); Neutrophils # 9.1 K/mm3 (1.8-7.8); Neutrophils % 77.5 % (37.0-80.0); Platelet Count 307 K/mm3 (142-424); Red Blood Count 4.26 M/mm3 (4.20-5.40); White Blood Count 11.7 K/mm3 (4.8-10.8)
[2023-03-18 09:18] LABS: Chloride 101 mmol/L (98-107)
[2023-03-18 09:19] LABS: Potassium 3.8 mmoL/L (3.5-5.1); Sodium 138 mmol/L (136-145)
[2023-03-18 09:21] LABS: HCG Qualitative, Serum Negative (Negative)
[2023-03-18 09:22] LABS: Anion Gap 12.8 mEq/L (5-15); Blood Urea Nitrogen 20 mg/dl (7-17); Calcium 8.7 mg/dl (8.4-10.2); Carbon Dioxide 28 mmol/L (22.0-30.0); Creatinine Clearance Estimated 157 mL/min (50-200); Estimated Glomerular Filt Rate 79 ml/min (>60); GFR (African American) 95 ML/MIN (>60); Glucose 95 mg/dl (74-100)
[2023-03-18 09:25] LABS: INR 0.94 (0.9-1.1); Prothrombin Time 10.2 seconds (10.1-12.5)
--- NOTE | 2023-03-18 14:21 | HMH.PHACL ---
PHA Carpenter Apprentice Discharge Med Automat Car Attendant: Krissy Roberson has received discharge medication counseling on the following medications: ASPIRIN 81 MG DAILY ATORVASTATIN 80 MG DAILY CLOPIDOGREL 75 MG DAILY LOSARTAN 25 MG DAILY METOPROLOL TARTRATE 100 MG BID
[2023-03-18 15:58] LABS: CATHL Activated Clotting Time 298 SEC (74-125)
== END 2023-03-18 14:59 | disposition home or self-care (01) ==
PROVIDERS: PCP Nurse Practitioner Family; Visit Provider Internal Medicine
DX: I25.118 Atherosclerotic heart disease of native coronary artery with other forms of angina pectoris (principal); J45.909 Unspecified asthma, uncomplicated; Z95.5 Presence of coronary angioplasty implant and graft; E78.5 Hyperlipidemia, unspecified; J45.40 Moderate persistent asthma, uncomplicated; E66.9 Obesity, unspecified; I10 Essential (primary) hypertension
CPT/HCPCS: 80048; 84703; 85025; 85347; 85610; 92928; 93458; 99152; 99153; C1725; C1760; C1769; C1876; C9600; J1644; Q9967

== ENCOUNTER 2023-03-29 11:03 | Outpatient (RCR) | payer BC, SELFPAY | END 2023-05-02 16:00 | disposition home or self-care (01) | LOC: PT 11:03 | PROVIDERS: Visit Provider Internal Medicine | DX: I25.10 Atherosclerotic heart disease of native coronary artery without angina pectoris (principal); Z95.5 Presence of coronary angioplasty implant and graft | CPT/HCPCS: 93798 ==

== ENCOUNTER → 2023-04-05 15:16 | Outpatient (CLI) | payer BC, SELFPAY ==
[2023-04-05 17:00] LABS: Hemoglobin A1C 5.4 % (4.0-6.0)
[2023-05-01 14:05] LABS: LDL-C 80; LDL-P 886
[2023-05-01 14:06] LABS: Cholesterol, Total 148; HDL-C 54; Triglycerides 72
[2023-05-01 14:08] LABS: LDL Size 20.6
[2023-05-01 14:09] LABS: LP-IR Score 42
== END ==
LOC: LAB 15:17
PROVIDERS: PCP Nurse Practitioner Family; Visit Provider Physician Assistant
DX: I20.8 Other forms of angina pectoris (principal); I10 Essential (primary) hypertension; E78.5 Hyperlipidemia, unspecified; G47.33 Obstructive sleep apnea (adult) (pediatric); E66.9 Obesity, unspecified; Z68.38 Body mass index [BMI] 38.0-38.9, adult; Z95.5 Presence of coronary angioplasty implant and graft
CPT/HCPCS: 36415; 83036; 83704

== ENCOUNTER → 2023-05-03 10:02 | Outpatient (CLI) | payer BC, SELFPAY ==
[2023-05-03 10:54] LABS: Basophils # 0.1 K/mm3 (0-0.2); Basophils % 0.5 % (0.1-2.0); Eosinophils # 0.1 K/mm3 (0.0-0.4); Hematocrit 36.9 % (37.0-47.0); Hemoglobin 11.8 g/dL (12.2-16.2); Lymphocytes # 2.1 K/mm3 (0.7-4.5); Lymphocytes % 18.9 % (10-50); Mean Corpuscular HGB Conc 32.1 g/dL (31.8-35.4); Mean Corpuscular Hemoglobin 30.3 pg (27.0-31.2); Mean Corpuscular Volume 94.5 fl (81-99); Mean Platelet Volume 8.7 fl (7.4-10.4); Monocytes # 0.6 K/mm3 (0.1-1.0); Monocytes % 5.4 % (1.7-9.3); Neutrophils # 8.1 K/mm3 (1.8-7.8); Neutrophils % 74.2 % (37.0-80.0); Platelet Count 313 K/mm3 (142-424); White Blood Count 10.9 K/mm3 (4.8-10.8)
[2023-05-03 11:53] LABS: Free T4 (Free Thyroxine) 0.84 ng/dl (0.78-2.19)
[2023-05-03 12:01] LABS: Alanine Aminotransferase 30 U/L (12-78); Albumin Level 3.7 g/dl (3.5-5.0); Alkaline Phosphatase 92 U/L (38-126); Anion Gap 12.3 mEq/L (5-15); Aspartate Amino Transferase 21 U/L (14-36); Bilirubin,Indirect 0.3 mg/dL (0.0-0.9); Bilirubin,Total 0.3 mg/dl (0.2-1.3); Bilirubin,Unconjugated 0.5 mg/dL (0.0-1.1); Blood Urea Nitrogen 15 mg/dl (7-17); Calcium 8.8 mg/dl (8.4-10.2); Carbon Dioxide 27 mmol/L (22.0-30.0); Chloride 107 mmol/L (98-107); Chol/HDL Ratio 2.7 (1-3.5); Cholesterol 106 mg/dl (140-200); Estimated Glomerular Filt Rate 61 ml/min (>60); GFR (African American) 74 ML/MIN (>60); Glucose 90 mg/dl (74-100); HDL Cholesterol 40 mg/dl (40-60); Magnesium 1.8 mg/dl (1.6-2.3); Potassium 4.3 mmoL/L (3.5-5.1); Sodium 142 mmol/L (136-145); Total Protein,Serum 6.3 g/dl (6.3-8.2); Triglycerides 113 mg/dl (30-150); VLDL Cholesterol 23 mg/dL (0-40)
[2023-05-03 12:13] LABS: Direct LDL Cholesterol 50.55 mg/dL (100-129)
[2023-05-03 12:33] LABS: Thyroid Stimulating Hormone 2.05 uIU/mL (0.465-4.68)
== END ==
PROVIDERS: PCP Nurse Practitioner Family; Visit Provider Nurse Practitioner
DX: E78.5 Hyperlipidemia, unspecified (principal); I10 Essential (primary) hypertension; R73.03 Prediabetes; E66.9 Obesity, unspecified; Z68.37 Body mass index [BMI] 37.0-37.9, adult; Z95.5 Presence of coronary angioplasty implant and graft
CPT/HCPCS: 36415; 80048; 80061; 80076; 83735; 84439; 84443; 85025

== ENCOUNTER → 2023-05-10 14:51 | Outpatient (CLI) | payer BC, SELFPAY ==
[2023-05-10 15:46] VITALS: BMI 38.7
== END ==
PROVIDERS: PCP Nurse Practitioner Family; Visit Provider Nurse Practitioner
DX: E66.9 Obesity, unspecified (principal); Z68.37 Body mass index [BMI] 37.0-37.9, adult; Z71.3 Dietary counseling and surveillance

== ENCOUNTER 2023-05-16 18:34 | Emergency (ER) | payer BC, SELFPAY ==
[2023-05-16] VITALS (8 sets, daily range): BP systolic 94–161; BP diastolic 57–108; PULSE 67–79; RESP 12–16; TEMP 36.6–36.7; O2SAT 94–98; BMI 37.9
--- NOTE | 2023-05-16 18:33 | ECG_ITS ---
APPROVED REPORT Exam: Resting ECG HR:72 bpm ECG Measurements Heart Rate [address] 125 P 28 QRSd 74 QRS 74 QT 342 T 68 QTc 366 Conclusion SINUS RHYTHM NORMAL ECG UNCONFIRMED REPORT Electronically signed by : Reddy Hart MD 05/17/2023 17:17:44
[2023-05-16 18:55] LABS: Chloride 101 mmol/L (98-107); Potassium 3.9 mmoL/L (3.5-5.1); Sodium 138 mmol/L (136-145)
[2023-05-16 18:57] LABS: Blood Urea Nitrogen 17 mg/dl (7-17); Creatinine Clearance Estimated 137 mL/min (50-200); Estimated Glomerular Filt Rate 69 ml/min (>60); GFR (African American) 83 ML/MIN (>60)
[2023-05-16 18:58] LABS: Alanine Aminotransferase 29 U/L (12-78); Albumin Level 4.3 g/dl (3.5-5.0); Albumin/Globulin Ratio 1.3 (1.1-1.8); Alkaline Phosphatase 100 U/L (38-126); Anion Gap 14.9 mEq/L (5-15); Aspartate Amino Transferase 23 U/L (14-36); Bilirubin,Total 0.6 mg/dl (0.2-1.3); Calcium 9.8 mg/dl (8.4-10.2); Carbon Dioxide 26 mmol/L (22.0-30.0); Globulin 3.4 g/dL (1.3-3.2); Glucose 113 mg/dl (74-100); Total Protein,Serum 7.7 g/dl (6.3-8.2)
[2023-05-16 18:59] LABS: Basophils # 0.1 K/mm3 (0-0.2); Basophils % 0.6 % (0.1-2.0); Eosinophils # 0.2 K/mm3 (0.0-0.4); Eosinophils % 1.4 % (0.1-12.0); Hematocrit 45.4 % (37.0-47.0); Hemoglobin 14.6 g/dL (12.2-16.2); Lymphocytes % 15.2 % (10-50); MANUAL DIFFERENTIAL MANUAL DIFFERENTIAL (MANUAL DIFF); Mean Corpuscular HGB Conc 32.1 g/dL (31.8-35.4); Mean Corpuscular Hemoglobin 30.1 pg (27.0-31.2); Mean Corpuscular Volume 93.6 fl (81-99); Mean Platelet Volume 9.2 fl (7.4-10.4); Monocytes # 0.8 K/mm3 (0.1-1.0); Monocytes % 6.1 % (1.7-9.3); Neutrophils # 10.2 K/mm3 (1.8-7.8); Neutrophils % 76.7 % (37.0-80.0); Platelet Count 288 K/mm3 (142-424); Red Blood Count 4.86 M/mm3 (4.20-5.40); Red Cell Distribution Width 14.1 % (11.5-17.5); White Blood Count 13.3 K/mm3 (4.8-10.8)
[2023-05-16 19:10] LABS: Troponin I < 0.01 ng/ml (0.00-0.034)
--- NOTE | 2023-05-16 19:24 | HMH.EDGENADL ---
Discharge Plan Disposition Patient Disposition: Home, Self-Care Condition: Good Chief Complaint: Chest Pain Prescriptions Prescriptions: No Action albuterol sulfate 90 mcg/actuation HFA aerosol inhaler 2 inh inhalation Q6H PRN (Reason: shortness of breath or wheezing) 90 Days Qty: 8.5 1RF trazodone 50 mg tablet 50 mg PO DAILY PRN (Reason: Sleep) aspirin [Adult Low Dose Aspirin] 81 mg tablet,delayed release (DR/EC) 81 mg PO DAILY ondansetron 4 mg tablet,disintegrating 4 mg PO Q6H PRN (Reason: nausea and vomiting) Qty: 14 0RF atorvastatin 80 mg tablet 80 mg PO DAILY Qty: 90 3RF clopidogrel 75 mg tablet 75 mg PO DAILY Qty: 90 3RF hydrochlorothiazide 25 mg tablet 25 mg PO DAILY Qty: 90 3RF Rx Instructions: 25 mg orally daily; isosorbide mononitrate 120 mg tablet extended release 24 hr 120 mg PO DAILY Qty: 90 3RF losartan 25 mg tablet 25 mg PO DAILY Qty: 90 3RF metoprolol tartrate 100 mg tablet 100 mg PO BID 90 Days Qty: 180 3RF nitroglycerin 0.4 mg tablet, sublingual 0.4 mg sublingual Q5M PRN (Reason: chest pain) Qty: 20 0RF Rx Instructions: do not exceed 3 doses per episode pantoprazole [Protonix] 40 mg tablet,delayed release (DR/EC) 40 mg PO DAILY Qty: 90 3RF ranolazine 1,000 mg tablet extended release 12 hr 1,000 mg PO BID Qty: 30 5RF Rx Instructions: This drug is subject to initial fill limitations. Please resubmit with a 14 or 15 day supply. Repatha SureClick 140 mg/mL pen injector 140 mg SQ Q2W Qty: 2 2RF sumatriptan succinate 25 mg tablet See Rx Instructions PO .COMPLEX Qty: 30 0RF Rx Instructions: take 1 tab at onset of headache; if no relief may repeat 1 tab after at least 2 hrs; max = 4 tabs/24 hr PO Qulipta 60 mg tablet 60 mg PO DAILY Qty: 30 2RF escitalopram oxalate 10 mg tablet 10 mg PO DAILY Qty: 90 1RF fluticasone propion-salmeterol [Advair Diskus] 250-50 mcg/dose blister with device 1 inh inhalation BID Referrals Follow up/Referrals: Provider,Referral, [Primary Care Provider] - See instructions Activity Restrictions/Add. Instructions Additional Instructions/Restrictions: Call your family doctor to establish care for this visit to the emergency department and schedule follow-up within 48 hours to ensure improvement. If you have any worsening of your condition or any other concerning signs or symptoms, return to the emergency department or your primary care doctor for further evaluation. Take Tylenol 1000 mg every 6 hours (4 times daily) and ibuprofen 400 mg every 6 hours (4 times daily) as needed with food and water to prevent GI upset and kidney damage. Clinical Impressions Clinical Impression: Chest pain, Back pain Discharge ED Provider: Zaid Long General Adult HPI General Chief complaint: Chest Pain Stated complaint: Chest Pain Time Seen by Provider: 05/16/23 18:39 Mode of Arrival: Ambulatory Source of Information: Patient Limitations: No Limitations Description of Symptoms (Recalled from ER Triage Doc. by RN): 43 yo F presents to ED with c/o chest pain/spasms, pressure. symptoms began approx 3 am this morning. pt reports she took two nitro pills prior to arrival with little relief. pt reports jannette an 81 mg aspirin this am. History of Present Illness HPI narrative: This is a 43-year-old female with history of numerous coronary stents placed currently on aspirin and Plavix presenting with multiple complaints. Patient states that at 3 AM on 05/16, woke up with acute onset chest pain. Woke her up from sleep, moderate to severe in intensity, continues to be painful. Radiates to her back, left shoulder, and neck. States that she feels numb on the left side of her body as well. Denies confusion, difficulty with range of motion of neck, off balance, confusion, dizziness, vision complaints, nausea or vomiting, shortness of breath, diaphoresis, or any other concerns. [place]
--- NOTE | 2023-05-16 19:28 | CT_ITS ---
PROCEDURE INFORMATION: Exam: CT Head Without Contrast Exam date and time: 05/16/2023 7:44 PM Age: 43 years old Clinical indication: Pain; Headache not specified; Additional info: Cp radiating to back, L sided numbness TECHNIQUE: Imaging protocol: Computed tomography of the head without contrast. Radiation optimization: All CT scans at this facility use at least one of these dose optimization techniques: automated exposure control; mA and/or kV adjustment per patient size (includes targeted exams where dose is matched to clinical indication); or iterative reconstruction. REPORTING DATA: Count of CT and Cardiac NM exams in prior 12 months: This patient has received [address] and 0 known cardiac nuclear medicine studies in the 12 months prior to the current study. COMPARISON: MR CERVICAL SPINE WO CON 08/31/2019 2:46 PM FINDINGS: Brain: No acute intracranial hemorrhage. No intra- or extra-axial fluid collection. No mass effect or midline shift. No evidence of acute/subacute infarct. Cerebral ventricles: No hydrocephalus. Paranasal sinuses: No air fluid levels in the visualized paranasal sinuses. Mastoid air cells: Visualized mastoid air cells are well aerated. Bones/joints: No acute calvarial or skull base fracture. Soft tissues: Unremarkable. IMPRESSION: No evidence of acute intracranial abnormality.
--- NOTE | 2023-05-16 19:28 | CT_ITS ---
PROCEDURE INFORMATION: Exam: CTA Head With Contrast, Arteriography Exam date and time: 05/16/2023 7:46 PM Age: 43 years old Clinical indication: Pain; Headache; Additional info: Cp radiating to back, L sided numbness TECHNIQUE: Imaging protocol: Computed tomographic angiography of the head with contrast. Exam focused on the arteries. 3D rendering (Not supervised by radiologist): MIP and/or 3D reconstructed images were created by the technologist. Radiation optimization: All CT scans at this facility use at least one of these dose optimization techniques: automated exposure control; mA and/or kV adjustment per patient size (includes targeted exams where dose is matched to clinical indication); or iterative reconstruction. Contrast material: ISOVUE; Contrast volume: 100 ml; Contrast route: INTRAVENOUS (IV); REPORTING DATA: Count of CT and Cardiac NM exams in prior 12 months: This patient has received [address] and 0 known cardiac nuclear medicine studies in the 12 months prior to the current study. COMPARISON: CT HEAD/BRAIN WO CON 05/16/2023 7:44 PM FINDINGS: ANTERIOR CIRCULATION: Right internal carotid artery: Intracranial segment is patent with no significant stenosis. No aneurysm. Right middle cerebral artery: No occlusion or significant stenosis. No aneurysm. Right anterior cerebral artery: No occlusion or significant stenosis. No aneurysm. Left internal carotid artery: Intracranial segment is patent with no significant stenosis. No aneurysm. Left middle cerebral artery: No occlusion or significant stenosis. No aneurysm. Left anterior cerebral artery: No occlusion or significant stenosis. No aneurysm. POSTERIOR CIRCULATION: Right vertebral artery: No occlusion or significant stenosis. No aneurysm. Left vertebral artery: No occlusion or significant stenosis. No aneurysm. Basilar artery: No occlusion or significant stenosis. No aneurysm. Right posterior cerebral artery: Hypoplastic P1 segment of the right posterior cerebral artery compensated by the right posterior communicating artery. No occlusion or significant stenosis distally. No dissection or aneurysm. Left posterior cerebral artery: No occlusion or significant stenosis. No aneurysm. Brain: No abnormally enhancing brain lesion, mass effect, or midline shift. Cerebral ventricles: No hydrocephalus. Bones/joints: No acute calvarial or skull base fracture. Soft tissues: Unremarkable. IMPRESSION: 1. No evidence of critical stenosis, occlusion, or aneurysm in the intracranial cerebral arteries. 2. Concurrent neck CTA reported separately.
--- NOTE | 2023-05-16 19:28 | CT_ITS ---
PROCEDURE INFORMATION: Exam: CTA Neck With Contrast Exam date and time: 05/16/2023 7:46 PM Age: 43 years old Clinical indication: Pain; Headache; Additional info: Cp radiating to back, L sided numbness TECHNIQUE: Imaging protocol: Computed tomographic angiography of the neck with contrast. 3D rendering (Not supervised by radiologist): MIP and/or 3D reconstructed images are not available at this time Radiation optimization: All CT scans at this facility use at least one of these dose optimization techniques: automated exposure control; mA and/or kV adjustment per patient size (includes targeted exams where dose is matched to clinical indication); or iterative reconstruction. Contrast material: ISOVUE; Contrast volume: 100 ml; Contrast route: INTRAVENOUS (IV); Other technique: Post-operative changes of prior anterior discectomy and cervical fusion. Hardware appears intact. No perihardware fracture or lucency to suggest loosening. REPORTING DATA: Count of CT and Cardiac NM exams in prior 12 months: This patient has received [address] and 0 known cardiac nuclear medicine studies in the 12 months prior to the current study. COMPARISON: MR CERVICAL SPINE WO CON 08/31/2019 2:46 PM FINDINGS: Right common carotid artery: No stenosis. No dissection or occlusion. Right internal carotid artery: No stenosis of the extracranial segment. No dissection or occlusion. Right external carotid artery: No occlusion or stenosis of the origin. Left common carotid artery: No stenosis. No dissection or occlusion. Left internal carotid artery: No stenosis of the extra-cranial segment. No dissection or occlusion. Left external carotid artery: No occlusion or stenosis of the origin. Right vertebral artery: No stenosis. No dissection or occlusion. Left vertebral artery: No stenosis. No dissection or occlusion. Soft tissues: Unremarkable. Bones/joints: Status anterior discectomy and cervical fusion in the lower cervical spine. Hardware appears intact. No perihardware fracture or lucency to suggest loosening. Moderate to severe spinal canal stenosis and neuroforaminal narrowing in the lower cervical spine secondary to degenerative uncovertebral hypertrophy and posterior disc osteophyte complexes. No evidence of acute osseous abnormality. IMPRESSION: 1. No evidence of critical stenosis, occlusion, dissection or aneurysm in the extracranial cerebral arteries. 2. Status post anterior discectomy and cervical fusion without evidence of hardware malfunction/failure. 3. Moderate to severe spinal canal stenosis and neuroforaminal narrowing in the lower cervical spine secondary to degenerative uncovertebral hypertrophy and posterior disc osteophyte complexes. REFERENCES: NASCET CRITERIA. The degree of stenosis in the cervical segment of the internal carotid artery is based on NASCET criteria. Normal is no stenosis. Mild is less than 50% stenosis. Moderate is 50-69% stenosis. Severe is 70% to 99% stenosis. Total occlusion is no detectable patent lumen.
--- NOTE | 2023-05-16 19:28 | CT_ITS ---
PROCEDURE INFORMATION: Exam: CTA Chest With Contrast Exam date and time: 05/16/2023 7:49 PM Age: 43 years old Clinical indication: Chest wall pain and radiating; Additional info: Cp radiating to back, L sided numbness TECHNIQUE: Imaging protocol: Computed tomographic angiography of the chest with contrast. Exam focused on the arteries. 3D rendering (Not supervised by radiologist): MIP and/or 3D reconstructed images were created by the technologist. Radiation optimization: All CT scans at this facility use at least one of these dose optimization techniques: automated exposure control; mA and/or kV adjustment per patient size (includes targeted exams where dose is matched to clinical indication); or iterative reconstruction. Contrast material: ISOVUE; Contrast volume: 100 ml; Contrast route: INTRAVENOUS (IV); REPORTING DATA: Count of CT and Cardiac NM exams in prior 12 months: This patient has received [address] and 0 known cardiac nuclear medicine studies in the 12 months prior to the current study. COMPARISON: CT ANGIO CHEST PE PROTOCOL 06/11/2022 10:10 AM FINDINGS: Pulmonary arteries: Normal. No pulmonary emboli. Aorta: Unremarkable. No aortic aneurysm. No aortic dissection. Lungs: Unremarkable. No consolidation. No masses. Pleural spaces: Unremarkable. No pneumothorax. No pleural effusion. Heart: Unremarkable. No cardiomegaly. No pericardial effusion. Lymph nodes: Unremarkable. No enlarged lymph nodes. Bones/joints: Moderate degenerative disc changes throughout the thoracic spine. No vertebral body compression or acute fracture. Soft tissues: Unremarkable. IMPRESSION: No evidence of pulmonary embolus, aortic abnormality or other acute abnormality in the chest.
--- NOTE | 2023-05-16 19:42 | PC.NURSE ---
pt to radiology
--- NOTE | 2023-05-16 20:16 | PC.NURSE ---
patient given ice water
[2023-05-16 20:45] LABS: Lymphocytes % 26 % (10-50); Monocytes % 2 % (2-9); Neutrophils % 72 % (42-76); Platelet Estimate Normal; RBC Morphology Normal; Total Cells Counted 100
--- NOTE | 2023-05-16 21:25 | PC.NURSE ---
verbal order to go ahead and obtain blood from patient
[2023-05-16 22:02] LABS: Troponin I < 0.01 ng/ml (0.00-0.034)
== END 2023-05-16 22:25 | disposition home or self-care (01) ==
PROVIDERS: Emergency Provider Emergency Medicine
DX: R07.9 Chest pain, unspecified (principal); I25.110 Atherosclerotic heart disease of native coronary artery with unstable angina pectoris; E78.5 Hyperlipidemia, unspecified; I10 Essential (primary) hypertension; J45.40 Moderate persistent asthma, uncomplicated; G47.33 Obstructive sleep apnea (adult) (pediatric); R73.03 Prediabetes
CPT/HCPCS: 70450; 70496; 70498; 71275; 80053; 84484; 85007; 85014; 85018; 85048; 85049; 93005; 99285; Q9967

== ENCOUNTER → 2023-06-08 06:14 | Outpatient (CLI) | payer BC, SELFPAY ==
--- NOTE | 2023-06-08 06:17 | NM_ITS ---
APPROVED REPORT Exam: Nuclear Stress Test Indication: dizziness..fatigue..soa..chest pain..high BP..high cholesterol..family hx Patient Location: Outpatient Stress Tech: Fay Keyes [place] Tech:Cherri Mendieta ARRT RT(R)(N) Ht: 5 ft 6 in Wt: 235 lbs Bra Size: 42dd HR: 76 bpm BP: 119/75 mmHg BSA: 2.14 m2 Rhythm: NSR TID: 1.15 BMI: 37.9 History: dizziness..fatigue..soa..chest pain..high BP..high cholesterol..family hx Procedure: Patient exercised on Alok protocol 7:15 minutes and sec, resting heart rate 76 bpm, resting blood pressure 119/75 mmHg, with exercise maximum heart rate achived was 144 bpm which is 81 % of the maximum predicted heart rate and blood pressure was 170/82 mmHg. Test was stopped due to fatigue. Patient denied any complaint of chest pain. Patient has average exercise capacity, achieved 10.1 METs of workload on treadmill, the blood pressure response to exercise was normal. Cardiac Stress and Resting SPECT Images: Cardiac Stress and Resting SPECT images were obtained using technetium 99m Myoview 30.3 mCi stress and 10.98 mCi at rest. Resting and stress imaging in supine and prone positions demonstrate a medium-sized, moderate, partially reversible perfusion defect in the mid to distal anterior LV wall involving the apical region. Gated imaging demonstrates normal LV systolic function. There is mild hypokinesis of the mid-anterior wall. LVEF is calculated at 59%. Conclusion: Medium-sized, moderate, partially reversible perfusion defect in the mid to distal anterior LV wall involving the apical region. Findings are suggestive of partial reversible ischemia. Gated imaging demonstrates normal LV systolic function. There is mild hypokinesis of the mid-anterior wall. LVEF is calculated at 59%. Electronically signed by : Meghan Park MD 06/12/2023 19:41:25
--- NOTE | 2023-06-08 10:12 | CA_ITS ---
APPROVED REPORT Exam: Exercise Treadmill Technologist: Fay Keyes Ht: 5 ft 6 in Wt: 243 lbs BSA: 2.17 m2 HR: 72 bpm BP: 119/75 mmHg Rhythm: NSR Indications: Angina, Fatigue Medical History Medications: Isosorbide,,,,, Aspirin,,,,, Metoprolol,,,,, Losartan,,,,, Pantoprazole,,,,, Atorvastatin,,,,, Escitalopram,,,,, HCTZ,,,,, Albuterol,,,,, ADVAIR,,,,, CloPIdogrel,,,,, Nitroglycerin,,,,, Stress Test Details Test: Alok HR Resting HR: 76 bpm Max Heart Rate (APMHR): 178 bpm Max HR Achieved: 144 bpm Target HR (85% APMHR): 151 bpm % of APMHR: 81 Recovery HR: 87 bpm HR response to stress: Blunted HR response to stress BP Resting BP: 119.0/75.0 mmHg Max BP: 170.0/82.0 mmHg Recovery BP: 129.0/74.0 mmHg BP response to stress: Normal blood pressure response to stress. ECG Resting ECG: Normal sinus rhythm Stress ECG: No ST changes Arrhythmia: None Recovery ECG: No ST changes Recovery Arrhythmia: None Clinical Exercise duration: 07:15 min Highest Stage Achieved: Exercise capacity: 10.1 METs Overall Exercise Capacity for Age: Average Stress ECG Conclusion The patient was unable to achieve target HR, but developed chest pain with exertion (target event). The patient was able to exercise for a total of 7m, 15s. She achieved a total of 10.1 METs. She has average exercise capacity compared to age and sex matched peers. She has a blunted HR, but normal BP, response to exercise. Symptoms: Mild chest pressure. Arrhythmias/Ectopy: None ST-T Changes: No significant ST changes Conclusion: Mild chest pressure at peak stress. Blunted HR response to exercise. Average exercise capacity. No significant ST changes at the time of symptoms. Myoview images reported separately. Test Summary REST . . . . . . . Sitting REST 06:14 0.0 0.0 76 . 119/ 75 . . Stage 1 01:00 10.0 1.7 95 . . . . Stage 1 02:00 10.0 1.7 106 . . . . Stage 1 03:00 10.0 1.7 108 . 132/ 80 . . Stage 2 01:00 12.0 2.5 116 . . . . Stage 2 02:00 12.0 2.5 121 . . . . Stage 2 03:00 12.0 2.5 124 . 150/ 88 . . Stage 3 01:00 14.0 3.4 139 . . . . Stage 3 01:15 14.0 3.4 143 . . . Stop exercise at 07:15 RECOVERY 01:00 0.0 0.0 120 . 170/ 82 . . RECOVERY 02:00 0.0 0.0 93 . 170/ 82 . . RECOVERY 03:00 0.0 0.0 90 . 135/ 69 . . RECOVERY 04:00 0.0 0.0 89 . 135/ 69 . . RECOVERY 05:00 0.0 0.0 87 . 129/ 74 . . RECOVERY 05:17 0.0 0.0 88 . 129/ 74 . . Electronically signed by : Meghan Park MD 06/12/2023 19:37:51
== END ==
LOC: RAD 06:14
PROVIDERS: PCP Nurse Practitioner Family; Visit Provider Physician Assistant
DX: I10 Essential (primary) hypertension; I25.10 Atherosclerotic heart disease of native coronary artery without angina pectoris; E78.5 Hyperlipidemia, unspecified; Z95.5 Presence of coronary angioplasty implant and graft
CPT/HCPCS: 78452; 93017

== ENCOUNTER 2023-06-29 07:54 | Day surgery (SDC) | payer BC, SELFPAY ==
[2023-06-29] VITALS (7 sets, daily range): BP systolic 102–144; BP diastolic 62–77; PULSE 66–73; RESP 18–20; TEMP 36.9; O2SAT 94–98; BMI 39.4
--- NOTE | 2023-06-29 07:07 | IR_ITS ---
APPROVED REPORT Patient Location: Outpatient Oxygen System Tester: CRESENCIO Alexander RT (R) PROCEDURES Left heart catheterization Left ventriculogram Selective coronary angiogram INDICATION Known coronary disease, Accelerated angina pectoris, Abnormal Myoview, Informed consent was obtained prior to the procedure. COMPLICATIONS NONE Estimated Blood Loss: LESS THAN 10 ML TECHNIQUE One percent lidocaine used to anesthetize the right anterior aspect of the wrist. The right radial artery was accessed via the Seldinger technique. A 6 Tunisian sheath was placed in the right radial artery. 2.5 mg of Verapamil, 800 mcg of nitroglycerin, 1mg Lidocaine and 5000 U Heparin were given through the arterial sheath. The papa catheter was also used to perform left heart catheterization, left ventriculogram and selective coronary angiogram. At the end of the procedure the sheath was removed good hemostasis was achieved using Traclet band, patient was transferred to the postop holding area in stable condition. ANGIOGRAPHIC RESULTS The left main artery He has a distal 10 to 20% stenosis The left anterior descending artery He has a stent in the ostial proximal segment which is widely patent free of in-stent restenosis with excellent proximal distal transitioning the remaining LAD is widely patent The circumflex artery Gives rise to a large ramus intermedius which has a stent in its proximal to mid segment which is widely free of in-stent restenosis with excellent proximal distal transitioning. The remaining circumflex artery has mild proximal 10 to 20% stenosis with a concentric 30% proximal stenosis in the terminal 1.5 mm obtuse marginal artery The right coronary artery Is probably a codominant system and has a mid vessel eccentric 30 to 40% stenosis. The posterior descending artery has proximal eccentric tandem 40% stenoses. Initially LONA II flow was present down the PDA with LONA-3 flow present with subsequent injections The SOLORIO ventriculogram reveals Mildly reduced ejection fraction 45% The left ventricular end-diastolic pressure Moderate to severely elevated at 25 to 30 mmHg IMPRESSION Patent coronary arteries as described above Slow flow down the posterior descending artery which improved by the end of the case suggesting endothelial dysfunction Elevated LVEDP which is likely the etiology for accelerated angina pectoris Mildly reduced ejection fraction PLAN 1. Treatment of diastolic dysfunction which is almost certainly a significant component and etiology for patient's coronary artery disease 2. With improved treatment of the diastolic dysfunction there would likely be improved flow down the posterior descending artery which is also likely contributing to the angina pectoris 3. Aggressive risk factor modification 4. Cardiac rehabilitation Electronically signed by : Claude Whitley MD 06/29/2023 10:28:55
[2023-06-29 08:38] LABS: Basophils # 0.1 K/mm3 (0-0.2); Basophils % 0.7 % (0.1-2.0); Eosinophils # 0.1 K/mm3 (0.0-0.4); Eosinophils % 0.9 % (0.1-12.0); Hematocrit 39.5 % (37.0-47.0); Hemoglobin 13.3 g/dL (12.2-16.2); Lymphocytes # 1.6 K/mm3 (0.7-4.5); Lymphocytes % 13.6 % (10-50); Mean Corpuscular HGB Conc 33.7 g/dL (31.8-35.4); Mean Corpuscular Hemoglobin 31.7 pg (27.0-31.2); Mean Corpuscular Volume 93.9 fl (81-99); Mean Platelet Volume 8.2 fl (7.4-10.4); Monocytes # 0.6 K/mm3 (0.1-1.0); Monocytes % 5.2 % (1.7-9.3); Neutrophils # 9.3 K/mm3 (1.8-7.8); Neutrophils % 79.6 % (37.0-80.0); Platelet Count 325 K/mm3 (142-424); Red Cell Distribution Width 14.6 % (11.5-17.5); White Blood Count 11.7 K/mm3 (4.8-10.8)
[2023-06-29 08:52] LABS: Anion Gap 11.7 mEq/L (5-15); Blood Urea Nitrogen 12 mg/dl (7-17); Calcium 8.9 mg/dl (8.4-10.2); Carbon Dioxide 29 mmol/L (22.0-30.0); Chloride 101 mmol/L (98-107); Creatinine Clearance Estimated 183 mL/min (50-200); Estimated Glomerular Filt Rate 92 ml/min (>60); GFR (African American) 111 ML/MIN (>60); Glucose 108 mg/dl (74-100); Potassium 3.7 mmoL/L (3.5-5.1); Sodium 138 mmol/L (136-145)
== END 2023-06-29 13:12 | disposition home or self-care (01) ==
PROVIDERS: PCP Nurse Practitioner Family; Visit Provider Internal Medicine
DX: I25.110 Atherosclerotic heart disease of native coronary artery with unstable angina pectoris (principal); E78.5 Hyperlipidemia, unspecified; G47.33 Obstructive sleep apnea (adult) (pediatric); I10 Essential (primary) hypertension; R73.03 Prediabetes; Z79.899 Other long term (current) drug therapy
CPT/HCPCS: 80048; 85025; 93458; 99152; C1725; C1769; J1644; Q9967

== ENCOUNTER 2023-10-20 09:13 | Outpatient (CLI) | payer BC, SELFPAY ==
[2023-10-20 09:37] LABS: Basophils # 0.2 K/mm3 (0-0.2); Basophils % 1.2 % (0.1-2.0); Eosinophils # 0.1 K/mm3 (0.0-0.4); Eosinophils % 0.7 % (0.1-12.0); Lymphocytes # 1.6 K/mm3 (0.7-4.5); Lymphocytes % 13.3 % (10-50); Mean Corpuscular HGB Conc 33.4 g/dL (31.8-35.4); Mean Platelet Volume 9.2 fl (7.4-10.4); Monocytes # 0.8 K/mm3 (0.1-1.0); Monocytes % 6.3 % (1.7-9.3); Neutrophils # 9.4 K/mm3 (1.8-7.8); Neutrophils % 78.5 % (37.0-80.0); Platelet Count 299 K/mm3 (142-424); Red Blood Count 4.51 M/mm3 (4.20-5.40); Red Cell Distribution Width 14.5 % (11.5-17.5)
[2023-10-20 10:00] LABS: Alanine Aminotransferase 29 U/L (12-78); Albumin Level 4.1 g/dl (3.5-5.0); Alkaline Phosphatase 99 U/L (38-126); Anion Gap 10.7 mEq/L (5-15); Aspartate Amino Transferase 21 U/L (14-36); Bilirubin,Indirect 0.4 mg/dL (0.0-0.9); Bilirubin,Total 0.4 mg/dl (0.2-1.3); Bilirubin,Unconjugated 0.3 mg/dL (0.0-1.1); Blood Urea Nitrogen 17 mg/dl (7-17); Calcium 9.5 mg/dl (8.4-10.2); Carbon Dioxide 28 mmol/L (22.0-30.0); Chloride 103 mmol/L (98-107); Chol/HDL Ratio 3.6 (1-3.5); Cholesterol 139 mg/dl (140-200); Estimated Glomerular Filt Rate 69 ml/min (>60); GFR (African American) 83 ML/MIN (>60); Glucose 111 mg/dl (74-100); HDL Cholesterol 39 mg/dl (40-60); Potassium 3.7 mmoL/L (3.5-5.1); Sodium 138 mmol/L (136-145); Total Protein,Serum 6.7 g/dl (6.3-8.2); Triglycerides 115 mg/dl (30-150); VLDL Cholesterol 23 mg/dL (0-40)
[2023-10-20 10:11] LABS: Direct LDL Cholesterol 82.69 mg/dL (100-129)
[2023-10-20 10:14] LABS: Free T4 (Free Thyroxine) 0.76 ng/dl (0.78-2.19)
[2023-10-20 10:30] LABS: Thyroid Stimulating Hormone 1.32 uIU/mL (0.465-4.68)
[2023-10-20 10:59] LABS: Hemoglobin A1C 5.4 % (4.0-6.0)
== END 2023-10-20 23:59 ==
LOC: LAB 09:14
PROVIDERS: PCP Nurse Practitioner Family; Visit Provider Nurse Practitioner
DX: R73.03 Prediabetes (principal); I25.119 Atherosclerotic heart disease of native coronary artery with unspecified angina pectoris; E78.5 Hyperlipidemia, unspecified; E66.9 Obesity, unspecified; Z68.41 Body mass index [BMI] 40.0-44.9, adult; Z79.84 Long term (current) use of oral hypoglycemic drugs
CPT/HCPCS: 36415; 80048; 80061; 80076; 83036; 83735; 84439; 84443; 85025

== ENCOUNTER 2023-11-01 08:14 | Outpatient (CLI) | payer BC, SELFPAY | END 2023-11-01 23:59 | PROVIDERS: PCP Nurse Practitioner Family; Visit Provider Nurse Practitioner Family | DX: Z12.31 Encounter for screening mammogram for malignant neoplasm of breast (principal) ==

== ENCOUNTER 2023-11-16 08:13 | Outpatient (CLI) | payer BC, SELFPAY ==
--- NOTE | 2023-11-16 08:14 | MM_ITS ---
PROCEDURE INFORMATION: Exam: MG Bilateral Screening 3D Mammography Exam date and time: 11/16/2023 8:20 AM Age: 43 years old Clinical indication: Screening mammogram TECHNIQUE: Imaging protocol: Bilateral Screening tomosynthesis and 2D mammography including computer-aided detection (CAD) when performed. COMPARISON: 1. MG MM DIG SCREENING MAMM BI W/CAD 11/03/2022 12:54 PM 2. MG MM DIG MAMM BI DX W/CAD 03/03/2021 8:46 AM 3. US BREAST RT COMPLETE 03/03/2021 9:50 AM FINDINGS: MAMMOGRAPHY: Breast composition: There are scattered areas of fibroglandular density. Mass: None. Architectural distortion: No new or suspicious architectural distortion. Calcifications: No new or suspicious calcifications are present Asymmetric density: No new or suspicious asymmetric density is present Skin thickening: None. Axillary adenopathy: None. IMPRESSION: No mammographic evidence of malignancy. Recommend annual screening mammography unless otherwise clinically indicated. ASSESSMENT: BI-RADS category 1: Negative
== END 2023-11-16 23:59 ==
LOC: RAD 08:14
PROVIDERS: PCP Nurse Practitioner Family; Visit Provider Nurse Practitioner Family
DX: Z12.31 Encounter for screening mammogram for malignant neoplasm of breast (principal)
CPT/HCPCS: 77063; 77067

== ENCOUNTER 2024-03-29 08:32 | Outpatient (CLI) | payer BC, SELFPAY | END 2024-03-29 23:59 | disposition home or self-care (01) | LOC: RT 08:33 | PROVIDERS: PCP Nurse Practitioner Family; Visit Provider Specialist | DX: G47.33 Obstructive sleep apnea (adult) (pediatric) (principal) | CPT/HCPCS: 94762 ==

== ENCOUNTER 2024-04-14 18:08 | Emergency (ER) | payer BC, SELFPAY ==
[2024-04-14 18:25] VITALS: BP 139/77; PULSE 88; RESP 18; TEMP 36.6; O2SAT 97; BMI 44.4
--- NOTE | 2024-04-14 18:33 | EXP.UTC ---
Discharge Plan Disposition Patient Disposition: Home, Self-Care Condition: Good Prescriptions Prescriptions: New levofloxacin 500 mg tablet 500 mg PO DAILY Qty: 5 0RF No Action atorvastatin 80 mg tablet 80 mg PO DAILY metoprolol tartrate 100 mg tablet 100 mg PO DAILY clopidogrel 75 mg tablet 75 mg PO DAILY isosorbide mononitrate 120 mg tablet extended release 24 hr 120 mg PO DAILY pantoprazole 40 mg tablet,delayed release (DR/EC) 40 mg PO DAILY hydrochlorothiazide 25 mg tablet 25 mg PO DAILY furosemide 20 mg tablet 20 mg PO DAILY spironolactone 50 mg tablet 50 mg PO DAILY escitalopram oxalate 10 mg tablet 10 mg PO DAILY losartan 25 mg tablet 25 mg PO DAILY aspirin 81 mg Tablet,Chewable 81 mg PO DAILY albuterol sulfate 90 mcg/actuation HFA aerosol inhaler 2 puff INHALATION Q6HP PRN (Reason: SOA) ranolazine 1,000 mg tablet extended release 12 hr 1,000 mg PO DAILY Qulipta 60 mg Tablet 60 mg PO DAILY Referrals Follow up/Referrals: Deepti Prince APRN [Primary Care Provider] - See instructions Activity Restrictions/Add. Instructions Additional Instructions/Restrictions: Culture pending - f/u with Deepti next week Return to [facility] if symptoms worsen Clinical Impressions Clinical Impression: UTI (urinary tract infection) Print Language Print Language: Scottish Discharge ED Provider: [place]ck[place] [facility] [place] General Stated complaint: back pain Mode of Arrival: Ambulatory Source of Information: Patient Limitations: No Limitations Time Seen by Provider: 04/14/24 18:54 Description of Symptoms (Recalled from Triage Doc. by RN): PATIENT C/O LOWER BACK AND PELVIC PAIN THAT STARTED YESTERDAY HEENT Symptoms (Recalled from RN notes): No Resp Symptoms (Recalled from RN notes): No Skin Symptoms (Recalled from RN notes): No MS Symptoms (Recalled from RN notes): No Functional Status (Recalled from RN notes): WNL History of Present Illness Provider Complaint: Low back pain, pelvic pain and pressure started yesterday. Nausea, no vomiting. No fever. No vaginal discharge. No vaginal bleeding. Pressure, pain worse when urinating. Always has diarrhea. Onset (ago): day(s) (1) Location: abdomen and pelvis Radiation: back Relieving factors: none Exacerbating factors: none Associated symptoms: denies other symptoms Treatments prior to arrival: none Related Data Home Medications ?Medication ?Instructions ?Recorded ?Confirmed albuterol sulfate 90 mcg/actuation 2 puff inhalation Q6HP PRN SOA 04/14/24 04/14/24 aerosol inhaler aspirin 81 mg chewable tablet 81 mg PO DAILY 04/14/24 04/14/24 atogepant 60 mg tablet (Qulipta) 60 mg PO DAILY 04/14/24 04/14/24 atorvastatin 80 mg tablet 80 mg PO DAILY 04/14/24 04/14/24 clopidogrel 75 mg tablet 75 mg PO DAILY 04/14/24 04/14/24 escitalopram oxalate 10 mg tablet 10 mg PO DAILY 04/14/24 04/14/24 furosemide 20 mg tablet 20 mg PO DAILY 04/14/24 04/14/24 hydrochlorothiazide 25 mg tablet 25 mg PO DAILY 04/14/24 04/14/24 isosorbide mononitrate 120 mg 120 mg PO DAILY 04/14/24 04/14/24 tablet,extended release 24 hr losartan 25 mg tablet 25 mg PO DAILY 04/14/24 04/14/24 metoprolol tartrate 100 mg tablet 100 mg PO DAILY 04/14/24 04/14/24 pantoprazole 40 mg tablet,delayed 40 mg PO DAILY 04/14/24 04/14/24 release ranolazine 1,000 mg 1,000 mg PO DAILY 04/14/24 04/14/24 tablet,extended release,12 hr spironolactone 50 mg tablet 50 mg PO DAILY 04/14/24 04/14/24 Previous Rx's ?Medication ?Instructions ?Recorded levofloxacin 500 mg tablet 500 mg PO DAILY #5 tabs 04/14/24 Allergies Allergy/AdvReac Type Severity Reaction Status Date / Time diphenhydramine AdvReac Intermediate Other Verified 03/29/24 07:50 [From Benadryl] Norvasc Allergy Unknown Uncoded 03/29/24 07:50 Worker's Comp Is this a Worker's Comp case?: No [facility] Disclaimer: The information contained in this section may have been updated after the patient was seen, as this information can be updated by other users. Medical History Typical angina Abdominal pain Moderate persistent asthma Family history of asthma Dyspnea Chest pain BMI 39.0-39.9,adult History of left heart catheterization Unstable angina HLD (hyperlipidemia) Coronary artery disease HOLA LAD (Aug 2022 ) & Circumflex (Oct 2022) Prediabetes Abnormal cardiovascular stress test Atypical angina Persistent dyspnea after COVID-19 Asthma Atypical chest pain Family history of ischemic heart disease Coronary artery calcification seen on CT scan History of 2019 novel coronavirus disease (COVID-19) Chest pain Orthopnea Heavy menstrual bleeding Obstructive sleep apnea syndrome Hypertensive disorder Surgical History History of coronary artery stent placement LAD (2021) Hx of cardiac cath 09/14/22 with HOLA to LAD 10/2022 with stent placement History of cervical spinal surgery Family History Mother Cancer breast cancer Other Asthma COPD (chronic obstructive pulmonary disease) Dementia Diabetes Hypertension Lung cancer Social History Smoking Status: Never smoker second hand exposure: Yes alcohol intake: never substance use type: denies use current occupational status: employed Travel in the last 8 weeks: None household members: family housing: house current occupation: gerard current occupational exposures/hazards: No caffeine: No ROS Obtained: Yes All systems reviewed & no additional complaints except as documented Genitourinary Female Genitourinary: Reports dysuria Musculoskeletal Musculoskeletal: Reports back pain Physical Exam General General appearance: alert and in no apparent distress Neck Neck exam: Present normal inspection, full ROM and trachea midline; Absent meningismus or lymphadenopathy Chest Chest inspection: Present normal inspection and symmetric chest wall rise; Absent tenderness Respiratory Respiratory exam: Present normal lung sounds bilaterally; Absent respiratory distress Cardiovascular Cardiovascular exam: Present regular rate and normal rhythm; Absent JVD Abdominal Exam Abdominal exam: Present soft, tenderness and normal bowel sounds; Absent distention or guarding Abdominal tenderness: Present suprapubic Extremities Exam Extremities exam: Present normal inspection, full ROM and normal capillary refill; Absent calf tenderness Back Exam Back exam: Present normal inspection; Absent tenderness Neurological Exam Neurological exam: Present alert and oriented X3 Psychiatric Psychiatric exam: Present normal affect and normal mood Skin Skin exam: Present warm, dry, intact and normal color Lymphatic Lymphatic Findings: no adenopathy Medical Decision Making Timothy Inquiry Pt receiving controlled substance: No Vital Signs: 04/14/24 18:25 Temperature 97.9 F Temperature Source Oral Pulse Rate [Left Brachial] 88 Respiratory Rate 18 Blood Pressure [Left Arm] 139/77 Blood Pressure Mean [Left Arm] 97 Blood Pressure Source [Left Arm] Automatic Cuff Blood Pressure Position [Left Arm] Sitting 02 Sat by Pulse Oximetry 97 Oxygen Delivery Method Room Air Lab Data Lab results reviewed: Yes I reviewed the patient's lab results.
[2024-04-14 18:44] LABS: Apearance,Urine Cloudy (Clear); Color,Urine Yellow (Yellow); PH,Urine 5.5 (5.0-8.5)
[2024-04-14 18:45] LABS: Bilirubin,Urine Negative (Negative); Blood, Urine Negative (Negative); Glucose,Urine (UA) Negative (Negative); Ketones,Urine Negative (Negative); Protein,Urine Negative (Negative); Specific Gravity, Urine 1.025 (1.005-1.030); UTC Leukocyte Esterase,Urine Negative (Negative); UTC Nitrate,Urine Negative (Negative); Urobilinogen,Urine 0.2 EU/dl (0.2)
[2024-04-14] MEDS: LIDOCAINE 1% 5ML PF VIAL IM (19:00)
[2024-04-14] MEDS: KETOROLAC 60MG/2ML VIAL 60 MG IM (19:00)
[2024-04-14] MEDS: cefTRIAXone 1GM VIAL 1 GM IM (19:00)
[2024-04-14 19:09] VITALS: BP 139/77; PULSE 88; RESP 18; TEMP 36.6; O2SAT 97
== END 2024-04-14 19:15 | disposition home or self-care (01) ==
PROVIDERS: Emergency Provider Physician Assistant; PCP Nurse Practitioner Family
DX: N39.0 Urinary tract infection, site not specified (principal); B96.89 Other specified bacterial agents as the cause of diseases classified elsewhere; M54.59 Other low back pain; R10.2 Pelvic and perineal pain; R11.0 Nausea
CPT/HCPCS: 81003; 87086; 96372; 99212; 99214; G0463; J0696; J1885

== ENCOUNTER 2024-04-19 09:28 | Outpatient (CLI) | payer BC, SELFPAY ==
[2024-04-19 09:55] LABS: Basophils # 0.1 K/mm3 (0-0.2); Eosinophils # 0.1 K/mm3 (0.0-0.4); Eosinophils % 1.1 % (0.1-12.0); Hematocrit 39.1 % (37.0-47.0); Hemoglobin 12.4 g/dL (12.2-16.2); Lymphocytes % 17.7 % (10-50); Mean Corpuscular HGB Conc 31.8 g/dL (31.8-35.4); Mean Corpuscular Hemoglobin 29.9 pg (27.0-31.2); Mean Corpuscular Volume 94.1 fl (81-99); Mean Platelet Volume 8.5 fl (7.4-10.4); Monocytes # 0.8 K/mm3 (0.1-1.0); Monocytes % 6.6 % (1.7-9.3); Neutrophils # 8.4 K/mm3 (1.8-7.8); Neutrophils % 73.6 % (37.0-80.0); Platelet Count 318 K/mm3 (142-424); Red Blood Count 4.15 M/mm3 (4.20-5.40); Red Cell Distribution Width 15.8 % (11.5-17.5); White Blood Count 11.4 K/mm3 (4.8-10.8)
[2024-04-19 10:22] LABS: Alanine Aminotransferase 37 U/L (12-78); Albumin Level 3.7 g/dl (3.5-5.0); Alkaline Phosphatase 95 U/L (38-126); Anion Gap 11.2 mEq/L (5-15); Aspartate Amino Transferase 21 U/L (14-36); Bilirubin,Indirect 0.4 mg/dL (0.0-0.9); Bilirubin,Total 0.4 mg/dl (0.2-1.3); Bilirubin,Unconjugated 0.5 mg/dL (0.0-1.1); Blood Urea Nitrogen 15 mg/dl (7-17); Calcium 9.1 mg/dl (8.4-10.2); Carbon Dioxide 27 mmol/L (22.0-30.0); Chloride 105 mmol/L (98-107); Chol/HDL Ratio 3.3 (1-3.5); Cholesterol 130 mg/dl (140-200); Estimated Glomerular Filt Rate 61 ml/min (>60); GFR (African American) 73 ML/MIN (>60); Glucose 82 mg/dl (74-100); HDL Cholesterol 39 mg/dl (40-60); Potassium 4.2 mmoL/L (3.5-5.1); Sodium 139 mmol/L (136-145); Total Protein,Serum 6.4 g/dl (6.3-8.2); Triglycerides 114 mg/dl (30-150); VLDL Cholesterol 23 mg/dL (0-40)
[2024-04-19 10:36] LABS: Free T4 (Free Thyroxine) 0.81 ng/dl (0.78-2.19)
[2024-04-19 10:50] LABS: Thyroid Stimulating Hormone 2.17 uIU/mL (0.465-4.68)
[2024-04-19 10:51] LABS: Direct LDL Cholesterol 70.79 mg/dL (100-129)
== END 2024-04-19 23:59 | disposition home or self-care (01) ==
LOC: LAB 09:29
PROVIDERS: PCP Nurse Practitioner Family; Visit Provider Physician Assistant
DX: I25.118 Atherosclerotic heart disease of native coronary artery with other forms of angina pectoris (principal); R06.09 Other forms of dyspnea; E78.2 Mixed hyperlipidemia; Z68.41 Body mass index [BMI] 40.0-44.9, adult
CPT/HCPCS: 36415; 80048; 80061; 80076; 83735; 84439; 84443; 85025

== ENCOUNTER 2024-07-31 16:09 | Outpatient (CLI) | payer BC, SELFPAY ==
[2024-07-31 16:39] LABS: Chloride 101 mmol/L (98-107); Potassium 3.6 mmoL/L (3.5-5.1); Sodium 137 mmol/L (136-145)
[2024-07-31 16:42] LABS: Anion Gap 14.6 mEq/L (5-15); Blood Urea Nitrogen 16 mg/dl (7-17); Calcium 9.4 mg/dl (8.4-10.2); Carbon Dioxide 25 mmol/L (22.0-30.0); Estimated Glomerular Filt Rate 68 ml/min (>60); GFR (African American) 83 ML/MIN (>60); Glucose 120 mg/dl (74-100)
== END 2024-07-31 23:59 | disposition home or self-care (01) ==
LOC: LAB 16:10
PROVIDERS: PCP Nurse Practitioner Family; Visit Provider Internal Medicine
DX: I25.118 Atherosclerotic heart disease of native coronary artery with other forms of angina pectoris (principal); E78.2 Mixed hyperlipidemia; R73.03 Prediabetes; I10 Essential (primary) hypertension
CPT/HCPCS: 36415; 80048; 83735

== ENCOUNTER 2024-08-01 15:44 | Outpatient (CLI) | payer BC, SELFPAY ==
[2024-08-01 16:22] LABS: Troponin I < 0.01 ng/ml (0.00-0.034)
== END 2024-08-01 23:59 | disposition home or self-care (01) ==
LOC: LAB 15:45
PROVIDERS: PCP Nurse Practitioner Family; Visit Provider Physician Assistant
DX: I25.118 Atherosclerotic heart disease of native coronary artery with other forms of angina pectoris (principal); Z68.41 Body mass index [BMI] 40.0-44.9, adult; R07.89 Other chest pain
CPT/HCPCS: 36415; 84484

== ENCOUNTER 2024-08-08 06:44 | Outpatient (CLI) | payer BC, SELFPAY ==
--- NOTE | 2024-08-08 | CA_ITS ---
APPROVED REPORT Exam: Pharmacologic Ht: 5 ft 6 in Wt: 279 lbs BSA: 2.30 m2 HR: 70 bpm BP: 114/62 mmHg Rhythm: NSR, early replarization changes Medical History Cardiac Risk Factors: HTN, Hyperlipidemia, FHX of CAD Stress Test Details HR Resting HR: 70 bpm Max Heart Rate (APMHR): 177.462800 bpm Target HR (85% APMHR): 150.274021 bpm Recovery HR: 81 bpm BP Resting BP: 114.0/62.0 mmHg Recovery BP: 113.0/69.0 mmHg ECG Resting ECG: NSR, early repolarization changes Stress ECG Conclusion During lexiscan pt experinced SOA, mild chest discomfort, and head discomfort. No arrhythmias noted. No signficant ST changes. Unremarkable lexiscan stress. Electronically signed by : Meghan Park MD 08/09/2024 01:38:33
--- NOTE | 2024-08-08 06:47 | NM_ITS ---
APPROVED REPORT Exam: Nuclear Stress Test Indication: cad, htn, hyperlipidemia, fm hx, c.p., sob, fatigue Patient Location: Outpatient Stress Tech: Magdalene Ahn [place] Tech:Neha Kenyon ARRT RT (R)(N)(M) Ht: 5 ft 6 in Wt: 280 lbs Bra Size: dd HR: 70 bpm BP: 114/62 mmHg BSA: 2.31 m2 TID: 1.49 BMI: 45.1 History: cad, htn, hyperlipidemia, fm hx, c.p., sob, fatigue Procedure: Patient received 0.4 mg of intravenous Lexiscan, resting heart rate 70 bpm, resting blood pressure 114/62 mmHg, with Lexiscan maximum heart rate achieved was 92 bpm which is % of the maximum predicted heart rate and blood pressure was 108/56 mmHg. With Lexiscan, patient denied any complaint of chest pain. Cardiac Stress and Resting SPECT Images: Cardiac Stress and Resting SPECT images were obtained using technetium 99m Myoview 31.0 mCi stress and 10.37 mCi at rest. Resting and stress imaging in supine and prone positions demonstrate a medium sized, moderate, partially reversible perfusion defect in the anterior LV wall, as well as fixed perfusion defect in the basal lateral LV wall. There is also increase in transit ischemic dilatation ratio (TID 1.49), suggestive of possible multivessel disease or balanced ischemia. Gated imaging demonstrates low-normal global and regional LV systolic function. LVEF is calculated at 53%. Conclusion: Medium sized, moderate, partially reversible perfusion defect in the anterior LV wall, as well as fixed perfusion defect in the basal lateral LV wall. There is also increase in transit ischemic dilatation ratio (TID 1.49), suggestive of possible multivessel disease or balanced ischemia. Gated imaging demonstrates low-normal global and regional LV systolic function. LVEF is calculated at 53%. Electronically signed by : Meghan Park MD 08/09/2024 01:40:33
[2024-08-08] MEDS: SODIUM CHLORIDE 0.9% 10ML SYR (RAD ONLY) 10 ML IV ×2 (08:30)
[2024-08-08] MEDS: REGADENOSON 0.4MG/5ML SYRINGE 0.4 MG IV (08:30)
[2024-08-08] MEDS: ISOTOPE MYOVIEW (PER STUDY) 1 DOSE IV (11:06)
== END 2024-08-08 23:59 | disposition home or self-care (01) ==
LOC: RAD 06:45
PROVIDERS: PCP Nurse Practitioner Family; Visit Provider Physician Assistant
DX: I25.118 Atherosclerotic heart disease of native coronary artery with other forms of angina pectoris (principal); I10 Essential (primary) hypertension; R06.09 Other forms of dyspnea
CPT/HCPCS: 78452; 93017; 93018; A9502; J2785

== ENCOUNTER 2024-08-14 08:26 | Day surgery (SDC) | payer BC, SELFPAY ==
[2024-08-14] VITALS (13 sets, daily range): BP systolic 103–165; BP diastolic 63–91; PULSE 71–90; RESP 18; O2SAT 95–99; BMI 45.0; BMI 27.3
--- NOTE | 2024-08-14 07:14 | IR_ITS ---
APPROVED REPORT Patient Location: Outpatient PROCEDURES Left heart catheterization Left ventriculogram Selective coronary angiogram INDICATION Known coronary artery disease, Abnormal Myoview, Worsening angina pectoris Informed consent was obtained prior to the procedure. COMPLICATIONS NONE Estimated Blood Loss: LESS THAN 10 ML TECHNIQUE One percent lidocaine used to anesthetize the right anterior aspect of the wrist. The right radial artery was accessed via the Seldinger technique. A 6 Luxembourger sheath was placed in the right radial artery. 2.5 mg of Verapamil, 800 mcg of nitroglycerin, 1mg Lidocaine and 5000 U Heparin were given through the arterial sheath. The papa catheter was also used to perform left heart catheterization, left ventriculogram and selective coronary angiogram. At the end of the procedure the sheath was removed good hemostasis was achieved using Traclet band, patient was transferred to the postop holding area in stable condition. ANGIOGRAPHIC RESULTS The left main artery Has a distal eccentric 40% stenosis The left anterior descending artery Has stents in the ostial proximal and mid segments which are widely patent with minimal in-stent restenosis and excellent distal transitioning. There is an additional 30 to 40% stenosis in the mid to distal LAD The circumflex artery Gives rise to a large ramus intermedius which is widely patent. The circumflex artery itself has proximal concentric 30% stenosis The right coronary artery Is nondominant and has proximal and mid vessel 30% stenosis The SOLORIO ventriculogram reveals Normal 65% The left ventricular end-diastolic pressure Elevated at 30 mmHg IMPRESSION Coronary artery disease as described above Normal ejection fraction Severely elevated LVEDP which is the likely etiology for patient's symptoms and transient ischemic dilatation PLAN 1. Aggressive risk factor modification for coronary artery disease 2. Treatment of diastolic dysfunction Electronically signed by : Claude Whitley MD 08/15/2024 14:22:04
[2024-08-14 08:54] LABS: Basophils # 0.1 K/mm3 (0-0.2); Basophils % 1.1 % (0.1-2.0); Eosinophils # 0.1 K/mm3 (0.0-0.4); Eosinophils % 0.8 % (0.1-12.0); Hematocrit 40.5 % (37.0-47.0); Hemoglobin 13.2 g/dL (12.2-16.2); Lymphocytes # 1.9 K/mm3 (0.7-4.5); Lymphocytes % 15.9 % (10-50); Mean Corpuscular HGB Conc 32.4 g/dL (31.8-35.4); Mean Corpuscular Hemoglobin 29.3 pg (27.0-31.2); Mean Corpuscular Volume 90.3 fl (81-99); Mean Platelet Volume 8.5 fl (7.4-10.4); Monocytes # 0.7 K/mm3 (0.1-1.0); Monocytes % 5.9 % (1.7-9.3); Neutrophils # 9.3 K/mm3 (1.8-7.8); Neutrophils % 76.2 % (37.0-80.0); Platelet Count 295 K/mm3 (142-424); Red Blood Count 4.49 M/mm3 (4.20-5.40); Red Cell Distribution Width 14.9 % (11.5-17.5); White Blood Count 12.2 K/mm3 (4.8-10.8)
[2024-08-14 09:03] LABS: Blood Urea Nitrogen 15 mg/dl (7-17); Calcium 9.3 mg/dl (8.4-10.2); Carbon Dioxide 28 mmol/L (22.0-30.0); Chloride 103 mmol/L (98-107); Creatinine Clearance Estimated 85 mL/min (50-200); Estimated Glomerular Filt Rate 78 ml/min (>60); GFR (African American) 95 ML/MIN (>60); Glucose 101 mg/dl (74-100); Sodium 139 mmol/L (136-145)
[2024-08-14 09:08] LABS: HCG Qualitative, Serum Negative (Negative)
[2024-08-14] MEDS: HEPARIN 1,000 UNITS/500ML NS (CATH LAB) 3000 UNIT IV (09:54)
[2024-08-14] MEDS: LIDOCAINE 1% 10ML MDV 20 ML IJ (09:54)
[2024-08-14] MEDS: HEPARIN 1,000 UNITS/ML 10ML VIAL (CATH LAB) 10000 UNIT IV (09:55)
[2024-08-14] MEDS: 0.9 % SODIUM CHLORIDE 500 ML 25 ML IV (09:55)
[2024-08-14] MEDS: VERAPAMIL 2.5MG/ML 2ML VIAL 2.5 MG IV (09:55)
[2024-08-14] MEDS: NITROGLYCERIN 800MCG/8ML SYR (CATH LAB) 800 MCG IA (09:55)
[2024-08-14] MEDS: MIDAZOLAM HCL 1MG/ML 5ML VIAL 1 MG IV (10:23)
[2024-08-14] MEDS: FENTANYL 100MCG/2ML VIAL 50 MCG IV (10:24)
[2024-08-14] MEDS: IOPAMIDOL-370 (76%);100ML BOTTLE 50 ML IV (15:31)
== END 2024-08-14 13:15 | disposition home or self-care (01) ==
PROVIDERS: PCP Nurse Practitioner Family; Visit Provider Internal Medicine
DX: I25.118 Atherosclerotic heart disease of native coronary artery with other forms of angina pectoris (principal); I11.0 Hypertensive heart disease with heart failure; I50.30 Unspecified diastolic (congestive) heart failure; R07.89 Other chest pain; Z79.899 Other long term (current) drug therapy; Z79.01 Long term (current) use of anticoagulants; Z86.16 Personal history of COVID-19; Z95.5 Presence of coronary angioplasty implant and graft; I77.1 Stricture of artery
CPT/HCPCS: 80048; 84703; 85025; 93458; 99152; C1725; C1760; C1769; J1644; J2250; J3010; Q9967

== ENCOUNTER 2024-09-13 11:20 | Outpatient (CLI) | payer BC, SELFPAY ==
[2024-09-13 18:49] LABS: Coronavirus 19, PCR Not Detected (NotDetected); Influenza B, PCR Not Detected (NotDetected)
[2024-09-14 00:45] LABS: Influenza A, PCR Detected (NotDetected)
== END 2024-09-13 23:59 | disposition home or self-care (01) ==
LOC: LAB.DROPOF 09-17 12:54
PROVIDERS: PCP Student in an Organized Health Care Education/Training Program; Visit Provider Student in an Organized Health Care Education/Training Program
DX: R09.81 Nasal congestion (principal); J09.X9 Influenza due to identified novel influenza A virus with other manifestations
CPT/HCPCS: 87636

== ENCOUNTER 2024-10-04 14:25 | Outpatient (CLI) | payer BC, SELFPAY ==
--- NOTE | 2024-10-04 14:28 | XR_ITS ---
FINAL REPORT CLINICAL HISTORY: abd pain, constipation FINDINGS: There is a normal bowel gas pattern. No abnormal dilatation is identified. There is no abnormal calcification. No free air is identified. IMPRESSION: No acute process. Reviewed, Interpreted and Dictated by Chandler Reddy MD Transcribed by Debbie Callahan Authenticated and [facility]
== END 2024-10-04 23:59 | disposition home or self-care (01) ==
LOC: RAD 14:25
PROVIDERS: PCP Nurse Practitioner Family; Visit Provider Nurse Practitioner Family
DX: R10.11 Right upper quadrant pain (principal); K59.00 Constipation, unspecified
CPT/HCPCS: 74019; 87086

== ENCOUNTER 2024-10-12 07:19 | Outpatient (CLI) | payer BC, SELFPAY ==
--- NOTE | 2024-10-12 07:21 | US_ITS ---
FINAL REPORT CLINICAL HISTORY: RUQ pain FINDINGS: RIGHT UPPER QUADRANT ULTRASOUND Technique: Ultrasound images of the right upper quadrant were obtained. There is fatty infiltration of the liver. Minimal sludge is seen in the gallbladder. There are no gallstones. Common duct is normal. The right kidney is unremarkable. IMPRESSION: Fatty liver. Minimal gallbladder sludge. Reviewed, Interpreted and Dictated by Jermaine Serrano MD Transcribed by Debbie Callahan Authenticated and [facility]
== END 2024-10-12 23:59 | disposition home or self-care (01) ==
LOC: RAD 07:20
PROVIDERS: PCP Nurse Practitioner Family; Visit Provider Nurse Practitioner Family
DX: R10.11 Right upper quadrant pain (principal)
CPT/HCPCS: 76705

== ENCOUNTER 2024-10-26 08:46 | Outpatient (CLI) | payer BC, SELFPAY ==
--- NOTE | 2024-10-26 08:51 | NM_ITS ---
FINAL REPORT CLINICAL HISTORY: RUQ pain, gallbladder sludge COMPARISON: None FINDINGS: Sequential anterior projection images of the abdomen were obtained after the intravenous injection of 8.17 mCi technetium 99m Choletec. There is normal uptake of radiotracer by the liver. The bile ducts are visualized by 5 minutes. Gallbladder activity is seen by 5 minutes. Bowel activity is noted by 5 minutes. After 1 hour, 2.8 ?g of CCK was injected intravenously for calculation of gallbladder ejection fraction. The gallbladder ejection fraction is 78%, which is within normal limits. IMPRESSION: No evidence of cystic duct or bile duct obstruction. Normal gallbladder ejection fraction of 78%. Reviewed, Interpreted and Dictated by Chandler Reddy MD Transcribed by Tess Decker Authenticated and [facility]
[2024-10-26] MEDS: SODIUM CHLORIDE 0.9% 10ML SYR (RAD ONLY) 10 ML IV (10:37)
[2024-10-26] MEDS: ISOTOPE CHOLETECH;1 DOSE (UP TO 15 MCI) IV (10:37)
[2024-10-26] MEDS: SINCALIDE 2.5 MCG in 0.9 % SODIUM CHLORIDE 50 ML 100 MCG IV (10:37)
== END 2024-10-26 23:59 | disposition home or self-care (01) ==
LOC: RAD 08:47
PROVIDERS: PCP Nurse Practitioner Family; Visit Provider Nurse Practitioner Family
DX: R10.11 Right upper quadrant pain (principal); K59.00 Constipation, unspecified; K82.8 Other specified diseases of gallbladder
CPT/HCPCS: 78227; A9537; J2805

== ENCOUNTER 2024-11-09 08:48 | Outpatient (CLI) | payer BC, SELFPAY | END 2024-11-09 23:59 | disposition home or self-care (01) | LOC: RT 08:49 | PROVIDERS: PCP Nurse Practitioner Family; Visit Provider Physician Assistant | DX: R00.2 Palpitations (principal); R00.0 Tachycardia, unspecified | CPT/HCPCS: 93270 ==

== ENCOUNTER 2024-11-19 10:47 | Outpatient (CLI) | payer BC, SELFPAY ==
--- NOTE | 2024-11-19 10:49 | MM_ITS ---
PROCEDURE INFORMATION: Exam: MG Bilateral Screening 3D Mammography Exam date and time: 11/19/2024 10:57 AM Age: 44 years old Clinical indication: Screening. Her mother had breast cancer at age 64, maternal and paternal aunts had breast cancer, and her maternal grandmother had breast cancer. TECHNIQUE: Imaging protocol: Bilateral Screening tomosynthesis and 2D mammography including computer-aided detection (CAD) when performed. COMPARISON: 1. MG MM DIG SCREENING MAMM BI W/CAD 11/16/2023 8:20 AM 2. MG MM DIG SCREENING MAMM BI W/CAD 11/03/2022 12:54 PM 3. MG MM DIG MAMM BI DX W/CAD 03/03/2021 8:46 AM 4. US BREAST RT COMPLETE 03/03/2021 9:50 AM FINDINGS: MAMMOGRAPHY: Breast composition: There are scattered areas of fibroglandular density. Mass: None. Architectural distortion: None. Calcifications: No suspicious calcifications. Asymmetric density: No developing asymmetry. Skin thickening: None. Axillary adenopathy: None. IMPRESSION: No mammographic evidence of malignancy. Annual screening is recommended unless otherwise clinically indicated. ASSESSMENT: BI-RADS Category 1: Negative.
== END 2024-11-19 23:59 | disposition home or self-care (01) ==
LOC: RAD 10:47
PROVIDERS: PCP Nurse Practitioner Family; Visit Provider Obstetrics & Gynecology
DX: Z12.31 Encounter for screening mammogram for malignant neoplasm of breast (principal)
CPT/HCPCS: 77063; 77067

== ENCOUNTER 2024-11-28 09:43 | Outpatient (CLI) | payer BC, SELFPAY ==
[2024-11-28 10:13] LABS: Basophils # 0.1 K/mm3 (0-0.2); Eosinophils # 0.1 K/mm3 (0.0-0.4); Eosinophils % 0.8 % (0.1-12.0); Hematocrit 37.6 % (37.0-47.0); Hemoglobin 12.3 g/dL (12.2-16.2); Lymphocytes # 1.9 K/mm3 (0.7-4.5); Lymphocytes % 16.8 % (10-50); Mean Corpuscular HGB Conc 32.7 g/dL (31.8-35.4); Mean Corpuscular Hemoglobin 28.5 pg (27.0-31.2); Mean Platelet Volume 10.4 fl (7.4-10.4); Monocytes # 0.8 K/mm3 (0.1-1.0); Monocytes % 7.2 % (1.7-9.3); Neutrophils % 70.4 % (37.0-80.0); Platelet Count 332 K/mm3 (142-424); Red Blood Count 4.32 M/mm3 (4.20-5.40); Red Cell Distribution Width 15.2 % (11.5-17.5); White Blood Count 11.3 K/mm3 (4.8-10.8)
[2024-11-28 11:04] LABS: Albumin Level 4.2 g/dl (3.5-5.0); Chloride 104 mmol/L (98-107); Sodium 136 mmol/L (136-145)
[2024-11-28 11:05] LABS: Potassium 3.9 mmoL/L (3.5-5.1)
[2024-11-28 11:07] LABS: Alanine Aminotransferase 27 U/L (12-78); Alkaline Phosphatase 114 U/L (38-126); Anion Gap 9.9 mEq/L (5-15); Aspartate Amino Transferase 21 U/L (14-36); Bilirubin,Indirect 0.3 mg/dL (0.0-0.9); Bilirubin,Total 0.3 mg/dl (0.2-1.3); Bilirubin,Unconjugated 0.4 mg/dL (0.0-1.1); Blood Urea Nitrogen 12 mg/dl (7-17); Calcium 9.8 mg/dl (8.4-10.2); Carbon Dioxide 26 mmol/L (22.0-30.0); Cholesterol 131 mg/dl (140-200); Estimated Glomerular Filt Rate 68 ml/min (>60); GFR (African American) 83 ML/MIN (>60); Glucose 100 mg/dl (74-100); Total Protein,Serum 6.5 g/dl (6.3-8.2); Triglycerides 124 mg/dl (30-150); VLDL Cholesterol 25 mg/dL (0-40)
[2024-11-28 11:08] LABS: Chol/HDL Ratio 3.6 (1-3.5); HDL Cholesterol 36 mg/dl (40-60)
[2024-11-28 11:18] LABS: Direct LDL Cholesterol 71.32 mg/dL (100-129)
[2024-11-28 12:12] LABS: Thyroid Stimulating Hormone 2.53 uIU/mL (0.465-4.68)
[2024-11-28 12:13] LABS: Free T4 (Free Thyroxine) 0.93 ng/dl (0.78-2.19)
== END 2024-11-28 23:59 | disposition home or self-care (01) ==
LOC: LAB 09:44
PROVIDERS: PCP Nurse Practitioner Family; Visit Provider Physician Assistant
DX: Z01.818 Encounter for other preprocedural examination (principal); I10 Essential (primary) hypertension; I25.118 Atherosclerotic heart disease of native coronary artery with other forms of angina pectoris; E78.2 Mixed hyperlipidemia; R73.03 Prediabetes
CPT/HCPCS: 36415; 80048; 80061; 80076; 84439; 84443; 85025

== ENCOUNTER 2024-12-10 12:11 | Day surgery (SDC) | payer BC, SELFPAY ==
[2024-12-10 12:52] VITALS: BP 121/65; PULSE 80; RESP 18; TEMP 36.1; O2SAT 98; BMI 45.1
[2024-12-10] MEDS: LACTATED RINGERS 1000ML 1,000 ML 50 ML IV (13:15)
--- NOTE | 2024-12-10 13:20 | P.PNANES_ITS ---
[facility] Disclaimer: The information contained in this section may have been updated after the patient was seen, as this information can be updated by other users. Medical History Preop examination Back pain Trapezius muscle spasm Cervical paraspinal muscle spasm RUQ pain Injury of thumb, left, superficial, infected Obesity (BMI 35.0-39.9 without comorbidity) Family history of breast cancer Diastolic dysfunction (HFpEF) heart failure with preserved ejection fraction Atypical chest pain Edema Viral respiratory illness UTI (urinary tract infection) Typical angina Abdominal pain Moderate persistent asthma Family history of asthma Dyspnea Chest pain BMI 39.0-39.9,adult History of left heart catheterization Unstable angina HLD (hyperlipidemia) Coronary artery disease Prediabetes Abnormal cardiovascular stress test Atypical angina Persistent dyspnea after COVID-19 Asthma Atypical chest pain Family history of ischemic heart disease Coronary artery calcification seen on CT scan Chest pain Orthopnea Heavy menstrual bleeding Obstructive sleep apnea syndrome Hypertensive disorder Surgical History History of endometrial ablation History of coronary artery stent placement Hx of cardiac cath History of cervical spinal surgery Family History Mother Cancer breast cancer Grandmother Cancer breast Other Asthma COPD (chronic obstructive pulmonary disease) Dementia Diabetes Hypertension Lung cancer Social History (Updated 12/10/24 @ 12:55 by Laura Wilkins, SIOBHAN) Smoking Status: Never smoker second hand exposure: Yes alcohol intake: never substance use type: denies use current occupational status: employed Travel in the last 8 weeks: None household members: family housing: house current occupation: gerard current occupational exposures/hazards: No caffeine: No Have you lived/traveled outside [place] in past 30 days?: No Contact w/someone who lives/traveled outside [place] past 30 days?: No Exposure to someone with infectious disease in past 14 days?: No Do you have a fever (greater than 100.4 F or 38 C)?: No Have you tested positive for COVID-19: No Exposed to someone with COVID-19 in past 14 days?: No Do you have a sore throat?: No Do you have a cough?: No Do you have any weakness?: No Are you experiencing any nausea/vomitting?: No Do you have any diarrhea?: No Are you experiencing any unusual bleeding?: No Do you have any muscle aches/pain?: No Do you have any abdominal pain?: No Are you experiencing loss of taste or smell?: No [facility] Anesthesia Checklist Patient Identification Patient Identification: Arm Band Structural Data Admitted From: Home Planned Operative Procedure/s: Colonoscopy Consent for Planned Operative Procedure(s) Verified: Yes Verified Documents: Surgical Consent and History and Physical NPO Status Verified Time NPO: 10:00 (finished prep) Additional verifications Anesthesia Reactions: No Hx Blood Transfusions: No Blood Transfusion Reaction: Yes Airway Assessment Mallampati Score:: Class II C-Spine Mobility Assessed: Yes TMJ Mobility Assessed: Yes Dentition: Good Dentition Neurological Assessment Level of Consciousness: Awake, Alert and Appropriate Anesthesia Plan Anesthesia Risk discussed: Yes Anesthesia Plan: Verified ASA Class: III Anesthesia Type: MAC
--- NOTE | 2024-12-10 13:49 | P.HP_ITS ---
History of Present Illness *Admission Date: 12/10/24 *Reason for visit:: Change in bowel habits/worsening constipation, rectal bleeding and RLQ pain *History of present illness: Mrs. Roberson is a 44-year-old female who is here for diagnostic colonoscopy. The patient has had worsening constipation. She has lower abdominal pain especially in the right lower quadrant and intermittent bleeding which she attributes to internal hemorrhoids. The examination is deemed medically necessary for diagnostic colonoscopy. The patient has been seen, interviewed and examined prior to the procedure by both myself and the anesthesia provider. [facility] Disclaimer: The information contained in this section may have been updated after the patient was seen, as this information can be updated by other users. Medical History (Updated 12/10/24 @ 14:51 by Ari Grimaldo II, MD) Preop examination Back pain Trapezius muscle spasm Cervical paraspinal muscle spasm RUQ pain Injury of thumb, left, superficial, infected Obesity (BMI 35.0-39.9 without comorbidity) Family history of breast cancer Diastolic dysfunction (HFpEF) heart failure with preserved ejection fraction Atypical chest pain Edema Viral respiratory illness UTI (urinary tract infection) Typical angina Abdominal pain Moderate persistent asthma Family history of asthma Dyspnea Chest pain BMI 39.0-39.9,adult History of left heart catheterization Unstable angina HLD (hyperlipidemia) Coronary artery disease Prediabetes Abnormal cardiovascular stress test Atypical angina Persistent dyspnea after COVID-19 Asthma Atypical chest pain Family history of ischemic heart disease Coronary artery calcification seen on CT scan Chest pain Orthopnea Heavy menstrual bleeding Obstructive sleep apnea syndrome Hypertensive disorder Surgical History History of endometrial ablation History of coronary artery stent placement Hx of cardiac cath History of cervical spinal surgery Family History Mother Cancer breast cancer Grandmother Cancer breast Other Asthma COPD (chronic obstructive pulmonary disease) Dementia Diabetes Hypertension Lung cancer Social History (Updated 12/10/24 @ 12:55 by Laura Wilkins RN) Smoking Status: Never smoker second hand exposure: Yes alcohol intake: never substance use type: denies use current occupational status: employed Travel in the last 8 weeks: None household members: family housing: house current occupation: gerard current occupational exposures/hazards: No caffeine: No Have you lived/traveled outside [place] in past 30 days?: No Contact w/someone who lives/traveled outside [place] past 30 days?: No Exposure to someone with infectious disease in past 14 days?: No Do you have a fever (greater than 100.4 F or 38 C)?: No Have you tested positive for COVID-19: No Exposed to someone with COVID-19 in past 14 days?: No Do you have a sore throat?: No Do you have a cough?: No Do you have any weakness?: No Are you experiencing any nausea/vomitting?: No Do you have any diarrhea?: No Are you experiencing any unusual bleeding?: No Do you have any muscle aches/pain?: No Do you have any abdominal pain?: No Are you experiencing loss of taste or smell?: No Other Medical History Have you received the Flu Vaccine for this season: No Have you received the Pneumonia Vaccine: No Review of Systems Review of Systems Review of systems (narrative): Negative *Cardiovascular Comments: Negative *Gastrointestinal Comments: Negative *Genitourinary Comments: Negative *Musculoskeletal Comments: Negative *Neurologic Comments: Negative Meds Home Medications and Allergies Home Medications ?Medication ?Instructions ?Recorded ?Confirmed ?Type albuterol sulfate 90 mcg/actuation 2 puff inhalation Q6HP PRN SOA 04/14/24 12/10/24 History aerosol inhaler aspirin 81 mg chewable tablet 81 mg PO DAILY 04/14/24 12/10/24 History atogepant 60 mg tablet (Qulipta) 60 mg PO DAILY 04/14/24 12/10/24 History hydrochlorothiazide 25 mg tablet 25 mg PO DAILY 04/14/24 12/10/24 History escitalopram oxalate 20 mg tablet 20 mg PO DAILY #90 tabs 05/07/24 12/10/24 Rx cyclobenzaprine 10 mg tablet 10 mg PO TID PRN muscle spasm #30 07/11/24 12/10/24 Rx tabs nitroglycerin 0.4 mg sublingual 0.4 mg sublingual Q5M PRN chest 08/09/24 12/10/24 Rx tablet pain #30 tabs polyethylene glycol 3350 17 17 g PO BID #510 grams 10/04/24 12/10/24 Rx gram/dose oral powder (ClearLax) ranolazine 500 mg tablet,extended 500 mg PO BID 10/04/24 12/10/24 History release,12 hr fluticasone 100 mcg-salmeterol 50 1 inh inhalation BID 90 days #180 10/11/24 12/10/24 Rx mcg/dose blistr powdr for ea inhalation ondansetron 4 mg disintegrating 4 mg PO Q8H PRN nausea and 10/22/24 12/10/24 Rx tablet vomiting #30 tabs linaclotide 145 mcg capsule 145 mcg PO DAILY #90 caps 10/25/24 12/10/24 Rx (Linzess) atorvastatin 80 mg tablet 80 mg PO DAILY 11/08/24 12/10/24 History clopidogrel 75 mg tablet 75 mg PO DAILY Blood thinner 11/08/24 12/10/24 History losartan 25 mg tablet 25 mg PO DAILY 11/08/24 12/10/24 History metoprolol tartrate 100 mg tablet 100 mg PO BID 11/08/24 12/10/24 History spironolactone 50 mg tablet 50 mg PO DAILY 11/08/24 12/10/24 History sodium,potassium,mag sulfates 17.5 See Rx Instructions PO .COMPLEX 11/23/24 12/10/24 Rx gram-3.13 gram-1.6 gram oral soln #354 mL (Suprep Bowel Prep Kit) furosemide 20 mg tablet See Rx Instructions .Route 11/27/24 12/10/24 Rx .COMPLEX #90 tabs pantoprazole 40 mg tablet,delayed 40 mg PO DAILY #90 tabs 11/27/24 12/10/24 Rx release isosorbide mononitrate 120 mg 120 mg PO DAILY #90 tabs 12/03/24 12/10/24 Rx tablet,extended release 24 hr New Prescriptions to Start Prescriptions: Allergies Allergy/AdvReac Type Severity Reaction Status Date / Time amlodipine (From Norvas) Allergy Mild Unknown Verified 12/10/24 12:41 allergy reaction diphenhydramine (From AdvReac Intermediate Other Verified 12/10/24 12:41 Benadryl) Exam Data for Last 24 hours Vital signs and Labs for Last 24 Hours: Temp Pulse Resp BP Pulse Ox O2 Del Method 97.0 F L 80 18 121/65 98 Room Air 12/10/24 12:52 12/10/24 12:52 12/10/24 12:52 12/10/24 12:52 12/10/24 12:52 12/10/24 12:52 I & O for Last 24 hours: Intake & Output 12/07/24 12/08/24 12/09/24 12/10/24 23:59 23:59 23:59 23:59 Weight 280 lb *Routine HEENT Exam Head: Present normocephalic Eye: Present EOMI and PERRL ENT: Present mucous membranes moist *Routine Neck Exam Neck: Present supple *Routine Respiratory Exam Respiratory: Present CTA bilaterally *Routine Cardiovascular Exam Cardiovascular: Present RRR *Routine Abdominal Exam Abdominal: Present soft and normoactive bowel sounds; Absent tenderness *Routine Rectal Exam Rectal:: deferred *Routine Genitalia Exam Genitalia:: deferred *Routine Extremities Exam Extremities: Absent cyanosis, clubbing or edema *Routine Skin Exam Skin: Present warm; Absent rash *Routine Neurological Exam Neurological: Present alert and oriented X3 Assessment and Plan *Assessment and plan (1) Right lower quadrant abdominal pain: Status: Acute Category: Medical Code(s): R10.31 - Right lower quadrant pain (2) Change in bowel habits: Status: Acute Category: Medical Code(s): R19.4 - Change in bowel habit (3) Constipation: Status: Acute Category: Medical Code(s): K59.00 - Constipation, unspecified (4) Rectal bleeding: Status: Acute Category: Medical Code(s): K62.5 - Hemorrhage of anus and rectum (5) Bloating: Status: Acute Category: Medical Code(s): R14.0 - Abdominal distension (gaseous) Plan A/P: 1. Change in bowel habits with worsening constipation, right lower quadrant abdominal pain, rectal bleeding and bloating is the preprocedural diagnosis. The patient will be anesthetized/sedated using MAC sedation. The patient has been seen and examined. Cardiac and lung assessment prior to the examination is stable. Proceed with planned diagnostic colonoscopy
[2024-12-10 14:29] LABS: HCG Qualitative, Serum Negative (Negative)
[2024-12-10 14:43] VITALS: O2SAT 100
--- NOTE | 2024-12-10 14:51 | [facility].PROCNOTE ---
[facility] Procedure Note Date: 12/10/24 Time: 15:06 Procedure Note:: Colonoscopy Procedure Report: Colonoscopy with cold snare polypectomy and monopolar ablation/coagulation of internal hemorrhoids Endoscopist: Ari Grimaldo II, MD Referring physician: LOPEZ Vann Date of Procedure: December 10, 2024 Equipment: Olympus 190 variable stiffness pediatric colonoscope Sedation: MAC sedation Indication: Mrs. Roberson is a 44-year-old female who is here for diagnostic colonoscopy secondary to worsening constipation/change in bowel habits. Her x-ray had shown obstipation. She has had right sided and right lower quadrant abdominal pain and bloating. Her right upper quadrant abdominal ultrasound showed fatty liver and minimal gallbladder sludge. The patient has also noted some intermittent bright red rectal bleeding presumably secondary to hemorrhoidal bleeding. She failed to improve with MiraLAX but has improved some with Linzess. This does lead to some diarrhea. She reports no weight loss or family history of colon cancer. This is her first colonoscopy. Procedure: Prior to the procedure, a history and physical exam was performed, and patient's medications and allergies were reviewed. The risks, benefits and alternatives of the sedation and procedure were discussed with the patient. All questions were answered and informed consent was obtained. The patient was brought to the procedure room. Patient identification and proposed procedure were verified by the physician and the nurse. The patient was placed in a left lateral decubitus position and the scope was passed under direct vision. Throughout the procedure, the patient's blood pressure, pulse, and oxygen saturations were monitored continuously. The colonoscopy was accomplished without difficulty. The patient tolerated the procedure well. Findings: On digital rectal examination there was normal rectal tone. There were no external hemorrhoids. The colonoscope was introduced through the anal canal to the rectum and advanced to the cecum. The ileocecal valve and appendiceal orifice were identified. The scope was advanced a short distance into the ileum which appeared grossly normal. The scope was then withdrawn into the colon. There was a single hyperplastic appearing 3 to 4 mm descending polyp removed via cold snare polypectomy. The remaining cecum, ascending, transverse, descending, sigmoid and rectum were grossly normal. There were no other mucosal abnormalities identified. Upon retroflexion within the rectum there were grade 2 internal hemorrhoids. 3 columns of hemorrhoids were ablated/coagulated using monopolar ablation to destruction. The preparation was excellent throughout with [place] Preparation Score of 9. The cecal time was 12 minutes. Impression: 1. Diminutive hyperplastic appearing descending polyp (3 to 4 mm) 2. Grade 2 internal hemorrhoids status post monopolar ablation/coagulation Plan: I will follow-up the polyp histology and if the polyp is hyperplastic, I would recommend repeat surveillance colonoscopy again in 10 years. I would recommend that she continue the Linzess with the addition of some bulk (FiberCon). I will discuss the findings with the patient and family.
[2024-12-10 15:12] VITALS: BP 114/75; PULSE 78; RESP 16; TEMP 36.6; O2SAT 98
[2024-12-10 15:22] VITALS: BP 115/67; PULSE 77; RESP 16; O2SAT 98
[2024-12-10 15:30] VITALS: BP 113/65; PULSE 79; RESP 16; O2SAT 99
[2024-12-10 15:33] VITALS: BP 114/63; PULSE 75; RESP 16; O2SAT 99
== END 2024-12-10 15:34 | disposition home or self-care (01) ==
PROVIDERS: PCP Nurse Practitioner Family; Visit Provider Internal Medicine Gastroenterology
PROC: 0DJD8ZZ Inspection of Lower Intestinal Tract, Via Natural or Artificial Opening Endoscopic (ICD-10-PCS; CPT 45378; principal; 2024-12-10 14:00)
DX: K63.5 Polyp of colon (principal); K64.1 Second degree hemorrhoids; R10.31 Right lower quadrant pain; K62.5 Hemorrhage of anus and rectum; R14.0 Abdominal distension (gaseous); R19.4 Change in bowel habit
CPT/HCPCS: 45385; 45388; 84703; J7120

== ENCOUNTER 2025-01-09 08:58 | Emergency (ER) | payer BC, SELFPAY ==
[2025-01-09 09:07] VITALS: BP 121/52; PULSE 73; RESP 19; TEMP 37.1; O2SAT 96; BMI 45.1
[2025-01-09] MEDS: METHOCARBAMOL 500MG TABLET 1500 MG PO (09:34)
[2025-01-09] MEDS: DEXAMETHASONE 4MG TABLET 10 MG PO (09:35)
[2025-01-09] MEDS: ACETAMINOPHEN 500MG TAB 1000 MG PO (09:35)
[2025-01-09] MEDS: KETOROLAC 30MG/ML VIAL 30 MG IM (09:36)
[2025-01-09] MEDS: LIDOCAINE 5% TRANSDERMAL PATCH 1 EACH TD (09:37)
--- NOTE | 2025-01-09 09:48 | HMH.EDGENADL ---
Discharge Plan Disposition Patient Disposition: Home, Self-Care Prescriptions Prescriptions: New methocarbamol 750 mg tablet 1,500 mg PO TID 5 Days Qty: 30 0RF lidocaine 5 % adhesive patch,medicated 1 patch topical DAILY Qty: 30 0RF Rx Instructions: leave on most painful area for up to 12 hrs No Action cyclobenzaprine 10 mg tablet 10 mg PO TID PRN (Reason: muscle spasm) Qty: 30 0RF ranolazine 500 mg tablet extended release 12 hr 500 mg PO BID polyethylene glycol 3350 [ClearLax] 17 gram/dose powder 17 g PO BID Qty: 510 5RF Rx Instructions: BID until BM produced, then decrease to daily. fluticasone propion-salmeterol 100-50 mcg/dose blister with device 1 inh inhalation BID 90 Days Qty: 180 3RF escitalopram oxalate 20 mg tablet 20 mg PO DAILY Qty: 90 3RF clopidogrel 75 mg tablet 75 mg PO DAILY atorvastatin 80 mg tablet 80 mg PO DAILY losartan 25 mg tablet 25 mg PO DAILY metoprolol tartrate 100 mg tablet 100 mg PO BID spironolactone 50 mg tablet 50 mg PO DAILY furosemide 40 mg tablet 40 mg PO DAILY Qty: 90 3RF nitroglycerin 0.4 mg tablet, sublingual 0.4 mg sublingual Q5M PRN (Reason: chest pain) Qty: 30 2RF Rx Instructions: do not exceed 3 doses per episode ondansetron 4 mg tablet,disintegrating 4 mg PO Q8H PRN (Reason: nausea and vomiting) Qty: 30 0RF Linzess 145 mcg capsule 145 mcg PO DAILY Qty: 90 0RF sodium,potassium,mag sulfates [Suprep Bowel Prep Kit] 17.5-3.13-1.6 gram recon soln See Rx Instructions PO .COMPLEX Qty: 354 0RF Rx Instructions: DILUTE; drink full amount early evening before AND next morning at least 4-5 hr before procedure; follow w 960 mL water PO pantoprazole 40 mg tablet,delayed release (DR/EC) 40 mg PO DAILY Qty: 90 1RF isosorbide mononitrate 120 mg tablet extended release 24 hr 120 mg PO DAILY Qty: 90 1RF hydrocortisone acetate [Anusol-HC] 25 mg suppository 25 mg VT HS Qty: 12 2RF Rx Instructions: Please take 1 suppository per rectum nightly aspirin 81 mg Tablet,Chewable 81 mg PO DAILY albuterol sulfate 90 mcg/actuation HFA aerosol inhaler 2 puff INHALATION Q6HP PRN (Reason: SOA) Qulipta 60 mg Tablet 60 mg PO DAILY Referrals Follow up/Referrals: Deepti Prince APRN [Primary Care Provider] - See instructions Activity Restrictions/Add. Instructions Additional Instructions/Restrictions: Call your family doctor to establish care for this visit to the emergency department and schedule follow-up within 48 hours to ensure improvement. If you have any worsening of your condition or any other concerning signs or symptoms, return to the emergency department or your primary care doctor for further evaluation. Talk to your family doctor about another MRI if you continue having the symptoms. Also talk with him about physical therapy help correct posture in your neck and upper back. Clinical Impressions Clinical Impression: Cervical paraspinal muscle spasm Stand Alone Forms Stand Alone Forms: Work/School Release Instructions Patient Instructions: DI for Neck Pain Print Language Print Language: Pashto Discharge ED Provider: Zaid Long General Adult HPI General Chief complaint: Neck Pain/Injury Stated complaint: Pain in left side of neck w/ lack of movement Time Seen by Provider: 01/09/25 09:03 Mode of Arrival: Ambulatory Source of Information: Patient Description of Symptoms (Recalled from ER Triage Doc. by RN): pt c/o shooting left sided neck pain that's been going on for the past couple days. pt reports its hard for her to turn her head to the left side without severe discomfort. pt reports having a recent fall but has no known injuries. History of Present Illness HPI narrative: Please note that above description of symptoms, in this electronic medical record under categorization of recalled from ER triage doctor by RN are reflective of an initial nursing assessment, however, is not reflective of my full history and physical exam that was personally taken and clarified. Consequentially, this preceding description of symptoms, which may include the patient's categorized chief complaint in the EMR, do not reflect my personal clinical impression, and the ultimate description of history of present illness and patient stated complaints should be deferred to this section of the note. Unless stated otherwise or congruent with this section of the note, additional signs, symptoms, or incongruence should be interpreted as inaccurate with my clinical impression. Related Data Home Medications ?Medication ?Instructions ?Recorded ?Confirmed albuterol sulfate 90 mcg/actuation 2 puff inhalation Q6HP PRN SOA 04/14/24 12/27/24 aerosol inhaler aspirin 81 mg chewable tablet 81 mg PO DAILY 04/14/24 12/27/24 atogepant 60 mg tablet (Qulipta) 60 mg PO DAILY 04/14/24 12/27/24 ranolazine 500 mg tablet,extended 500 mg PO BID 10/04/24 12/27/24 release,12 hr atorvastatin 80 mg tablet 80 mg PO DAILY 11/08/24 12/27/24 clopidogrel 75 mg tablet 75 mg PO DAILY Blood thinner 11/08/24 12/27/24 losartan 25 mg tablet 25 mg PO DAILY 11/08/24 12/27/24 metoprolol tartrate 100 mg tablet 100 mg PO BID 11/08/24 12/27/24 spironolactone 50 mg tablet 50 mg PO DAILY 11/08/24 12/27/24 Previous Rx's ?Medication ?Instructions ?Recorded escitalopram oxalate 20 mg tablet 20 mg PO DAILY #90 tabs 05/07/24 cyclobenzaprine 10 mg tablet 10 mg PO TID PRN muscle spasm #30 07/11/24 tabs nitroglycerin 0.4 mg sublingual 0.4 mg sublingual Q5M PRN chest 08/09/24 tablet pain #30 tabs polyethylene glycol 3350 17 17 g PO BID #510 grams 10/04/24 gram/dose oral powder (ClearLax) fluticasone 100 mcg-salmeterol 50 1 inh inhalation BID 90 days #180 10/11/24 mcg/dose blistr powdr for ea inhalation ondansetron 4 mg disintegrating 4 mg PO Q8H PRN nausea and 10/22/24 tablet vomiting #30 tabs linaclotide 145 mcg capsule 145 mcg PO DAILY #90 caps 10/25/24 (Linzess) sodium,potassium,mag sulfates 17.5 See Rx Instructions PO .COMPLEX 11/23/24 gram-3.13 gram-1.6 gram oral soln #354 mL (Suprep Bowel Prep Kit) pantoprazole 40 mg tablet,delayed 40 mg PO DAILY #90 tabs 11/27/24 release isosorbide mononitrate 120 mg 120 mg PO DAILY #90 tabs 12/03/24 tablet,extended release 24 hr hydrocortisone acetate 25 mg 25 mg VT HS #12 ea 12/18/24 rectal suppository (Anusol-HC) furosemide 40 mg tablet 40 mg PO DAILY #90 tabs 12/27/24 lidocaine 5 % topical patch 1 patch topical DAILY #30 ea 01/09/25 methocarbamol 750 mg tablet 1,500 mg (2 x 750 mg) PO TID 5 01/09/25 days #30 tabs Allergies Allergy/AdvReac Type Severity Reaction Status Date / Time amlodipine (From Norvasc) Allergy Mild Unknown Verified 12/27/24 13:24 allergy reaction diphenhydramine (From AdvReac Intermediate Other Verified 12/27/24 13:24 Benadryl) [facility] Disclaimer: The information contained in this section may have been updated after the patient was seen, as this information can be updated by other users. Medical History BMI 40.0-44.9, adult Preop examination Back pain Trapezius muscle spasm Cervical paraspinal muscle spasm RUQ pain Injury of thumb, left, superficial, infected Obesity (BMI 35.0-39.9 without comorbidity) Family history of breast cancer mother, maternal grandmother, maternal great grandmother, maternal aunt Diastolic dysfunction (HFpEF) heart failure with preserved ejection fraction Atypical chest pain Edema Viral respiratory illness UTI (urinary tract infection) Typical angina Abdominal pain Moderate persistent asthma Family history of asthma Dyspnea Chest pain BMI 39.0-39.9,adult History of left heart catheterization Unstable angina HLD (hyperlipidemia) Coronary artery disease HOLA LAD (Aug 2022 ) & Circumflex (Oct 2022) Prediabetes Abnormal cardiovascular stress test Atypical angina Persistent dyspnea after COVID-19 Asthma Atypical chest pain Family history of ischemic heart disease Coronary artery calcification seen on CT scan Chest pain Orthopnea Heavy menstrual bleeding Obstructive sleep apnea syndrome Hypertensive disorder Surgical History History of endometrial ablation History of coronary artery stent placement LAD (2021) Hx of cardiac cath 09/14/22 with HOLA to LAD 10/2022 with stent placement History of cervical spinal surgery Family History Mother Cancer breast cancer Grandmother Cancer breast Other Asthma COPD (chronic obstructive pulmonary disease) Dementia Diabetes Hypertension Lung cancer Social History Smoking Status: Never smoker second hand exposure: Yes alcohol intake: never substance use type: denies use current occupational status: employed Travel in the last 8 weeks: None household members: family housing: house current occupation: gerard current occupational exposures/hazards: No caffeine: No Have you lived/traveled outside [place] in past 30 days?: No Contact w/someone who lives/traveled outside [place] past 30 days?: No Exposure to someone with infectious disease in past 14 days?: No Do you have a fever (greater than 100.4 F or 38 C)?: No Have you tested positive for COVID-19: No Exposed to someone with COVID-19 in past 14 days?: No Do you have a sore throat?: No Do you have a cough?: No Do you have any weakness?: No Do you have any diarrhea?: No Are you experiencing any unusual bleeding?: No Do you have any muscle aches/pain?: No Do you have any abdominal pain?: No Are you experiencing loss of taste or smell?: No Other Medical History Have you received the Flu Vaccine for this season: No Have you received the Pneumonia Vaccine: No ROS Obtained: Yes All systems reviewed & no additional complaints except as documented Physical Exam General General appearance: alert and obese Comment: Tearful, holding head in mild flexion toward the right shoulder Head Head exam: atraumatic and normocephalic Eye Eye exam: Present normal appearance, PERRL and EOMI Neck Neck exam: Present normal inspection, full ROM, trachea midline and tenderness (Muscular tenderness around left paraspinal muscles); Absent meningismus Respiratory Respiratory exam: Absent respiratory distress, wheezes, stridor, accessory muscle use or prolonged expiratory phase Cardiovascular Cardiovascular exam: Present other (Pulses equal symmetric in upper and lower extremities) Abdominal Exam Abdominal exam: Present soft; Absent distention, tenderness or pulsatile mass Extremities Exam Extremities exam: Absent edema Neurological Exam Neurological exam: Present alert, oriented X3 and CN II-XII intact; Absent motor sensory deficit Skin Skin exam: Present warm and dry; Absent diaphoresis or erythema Medical Decision Making Medical Records Medical records reviewed: Yes I reviewed the patient's medical records. Screening: Per USPSTF and CDC recommendations, given the prevalence of disease in our region, it is our hospital?s policy to screen for HIV and viral Hepatitis for all patients aged 18 and over and those with ongoing risk factors. Timothy Inquiry Pt receiving controlled substance: No Timothy was queried for this patient: No Vital Signs: 01/09/25 09:07 Temperature 98.7 F Temperature Source Oral Pulse Rate [Left] 73 Respiratory Rate 19 Blood Pressure [Left Arm] 121/52 L Blood Pressure Mean [Left Arm] 75 Blood Pressure Source [Left Arm] Automatic Cuff Blood Pressure Position [Left Arm] Supine 02 Sat by Pulse Oximetry 96 Oxygen Delivery Method Room Air Orders (Tests/Meds): ED MEDICATIONS Discontinued Medications Generic Name Dose Route Start Last Admin Trade Name Iban PRN Reason Stop Dose Admin Acetaminophen 1,000 mg 01/09/25 09:16 01/09/25 09:35 Acetaminophen 500mg Tab PO 01/09/25 09:17 1,000 mg ONCE ONE Administration Dexamethasone 10 mg 01/09/25 09:17 01/09/25 09:35 Dexamethasone 4mg Tablet PO 01/09/25 09:18 10 mg ONCE ONE Administration Ketorolac Tromethamine 30 mg 01/09/25 09:16 01/09/25 09:36 Ketorolac 30mg/Ml Vial IM 01/09/25 09:17 30 mg ONCE ONE Administration Lidocaine 1 each 01/09/25 09:16 01/09/25 09:37 Lidocaine 5% Transdermal Patch TD 01/09/25 09:17 1 each ONCE ONE Administration Methocarbamol 1,500 mg 01/09/25 09:16 01/09/25 09:34 Methocarbamol 500mg Tablet PO 01/09/25 09:17 1,500 mg ONCE ONE Administration Medical Decision Narrative: 44-year-old female presenting with neck pain. She states that it started 2 days ago after she woke up. Left-sided, radiates down to her left shoulder, associated with pain and stiffness in the neck. No fevers, chills, vision changes, nausea, vomiting, left lower extremity symptoms, right upper extremity symptoms, weakness, numbness, tingling, etc. She said that she has had this in the past and she received a Toradol shot and that seemed to help. History was obtained via conversation with patient. On arrival, patient hemodynamically stable, alert, oriented x4, appropriate, GCS 15, moving all extremities spontaneously, pupils equal and reactive to light. Full physical exam performed and significant for very clinically well-appearing female no acute distress. She is tearful. Holding her neck in mild flexion toward the right shoulder. Rotation and flexion to the left are intact, but cause spasming on the left side of her neck, subjectively. No obvious muscle tension on either side of the neck, but she has tenderness along cervical spinal muscles on the left. No midline spinal tenderness. Tension and pain into left trapezius as well going down to the mid thoracic spine and out to the left shoulder. Upper extremity neuroexam is intact. Differential includes disc herniation, muscle spasm, less likely to be of meningismus, dissection, among others. Patient given lidocaine patch, Robaxin, Toradol, acetaminophen, Decadron. On reevaluation, patient states he is feeling much better ranging neck appropriately and only having intermittent spasms. Appears happier as well. Given patient presentation, workup, history, this most likely represents muscle spasm of the neck and trapezius. Patient states that in the past, she has had cervical fixation of her lower cervical/upper thoracic spine. Feels makes it more likely to be disc herniation. Recommended she follow-up with her family doctor for this. Because patient at baseline without signs or symptoms of clinical decompensation, deemed appropriate for discharge. Results were relayed to patient who voiced understanding and were agreeable to outpatient management and follow up. I discussed my clinical impression with patient and answered all questions. At this time, the evidence for any other entities in the differential is insufficient to warrant any further testing or ED observation. This was explained as well. Advisory was given that persistent or worsening symptoms require further evaluation. I confirmed the understanding of this discussion. Color Tester disclaimer Much of this encounter note is an electronic banquet kitchen supervisor spoken language to printed text. Electronic banquet kitchen supervisor of the spoken language may permit errors. Although I have reviewed the note, some errors may still exist. Critical Care Critical Care Time Critical Care Time: No
[2025-01-09 10:47] VITALS: BP 103/64; PULSE 70; RESP 18; TEMP 36.9; O2SAT 98
== END 2025-01-09 10:47 | disposition home or self-care (01) ==
PROVIDERS: Emergency Provider Emergency Medicine; PCP Nurse Practitioner Family
DX: M54.2 Cervicalgia (principal); M62.838 Other muscle spasm
CPT/HCPCS: 96372; 99283; J1885; J8540

== ENCOUNTER 2025-01-21 15:56 | Outpatient (CLI) | payer BC, SELFPAY ==
--- NOTE | 2025-01-21 16:01 | XR_ITS ---
PROCEDURE INFORMATION: Exam: XR Cervical Spine Exam date and time: 01/21/2025 4:11 PM Age: 44 years old Clinical indication: Neck pain; Additional info: Cervical spine pain TECHNIQUE: Imaging protocol: Radiologic exam of the cervical spine. Views: 4 or 5 views. Total images: 7 COMPARISON: MR CERVICAL SPINE WO CON 08/31/2019 2:46 PM FINDINGS: Bones/joints: Status post anterior cervical fusion C5, C6, and C7. Straightened cervical lordosis. Vertebral body height and alignment is maintained. The facet joints are appropriately aligned. Mild bilateral neural foraminal narrowing C6-C7. The base of the dens and the C1 and C2 articulations are preserved. The cervicothoracic junction is intact. Mild degenerative disc disease C4-C5. Limited range of motion with flexion and extension. No stress-induced subluxation. Soft tissues: No prevertebral soft tissue swelling. Lungs: Lung apices are clear. IMPRESSION: 1. No acute cervical fracture or traumatic subluxation. 2. Status post anterior cervical fusion C5 through C7. 3. Straightened lordosis from position or muscle spasm 4. Bilateral neural foraminal narrowing C6-C7. 5. Limited range of motion without instability.
== END 2025-01-21 23:59 | disposition home or self-care (01) ==
LOC: RAD 15:57
PROVIDERS: PCP Nurse Practitioner Family; Visit Provider Nurse Practitioner Family
DX: M54.2 Cervicalgia (principal)
CPT/HCPCS: 72052

== ENCOUNTER 2025-01-22 15:48 | Outpatient (RCR) | payer BC, SELFPAY ==
--- NOTE | 2025-01-22 16:52 | HMH.PTOPEV ---
PT Outpatient Evaluation Rehab PT Outpatient Evaluation Start: 01/22/25 15:54 Freq: Status: Active Protocol: Document 01/22/25 16:27 NORA (Rec: 01/22/25 16:48 NORA [id number]) E-signed By Daniel Griffiths, PT Outpatient Therapy Subjective History Subjective History Pt is a 44 yof who is referred to [facility] outpatient PT with complaints of neck pain. She reports that the episode of neck pain began approximately 2-3 weeks ago of insidious onset and caused her to seek attention at the [facility] ED. She reports that it was a severe pain in her neck accompanied with tingling into her hand, specifically her ulnar two digits. Pt reports that her symptoms have slightly improved since then. The pt reports that she had a martha put into her Cervical Spine from C5-C7 in 2019. Pt reports significant difficulty when turning her head to the left. Occupation: [employer] PMH: CAD, HTN, Coronary Stents New diagnosis of cancer in past 12 No months? Chief Complaint Pain,Stiff,Paresthesia Symptom Type Ache,Sharp,Tingling Symptoms Relieved By Heat,Prescription Meds Symptoms Aggravated By Bending/Stooping,Twisting, Lifting Prior Functional Limitations None Current Functional Limitations Lifting,Housework,Desk Work/ Reading,Driving Symptom Description Constant but Variable,Activity Dependent Level of pain today (0-10) 4 Pain scale - at its best (0-10) 2 Pain scale - at its worst (0-10) 10 Cervical Eval Palpation Cervical Muscles L Cervical Paraspinal,L Suboccipital,L CT Junction,L Upper Trapezius Cervical/Thoracic Palpation Findings Tenderness,Trigger Point Posture Head/C-Spine Posture Sitting Position Neutral Position Head/C-Spine Posture Standing Position Neutral Position Flexibility Deficits Upper Trapezius Muscle Length (R) Moderate Tightness,(L) Moderate Tightness Pectoralis Minor Muscle Length (R) Moderate Tightness,(L) Moderate Tightness Passive Joint Mobility Cervical PIVM Dec: L OA L AA L C2/3 L C3/4 L C4/5 AROM Cervical Spine Extension Active Range of 20 Motion (degrees) Cervical Spine Flexion Active Range of 50 Motion (degrees) Cervical Spine Right Lateral Flexion 25 Active Range of Motion (degrees) Cervical Spine Left Lateral Flexion 10 Active Range of Motion (degrees) Cervical Spine Right Rotation Active 25 Range of Motion (degrees) Cervical Spine Left Rotation Active 10 Range of Motion (degrees) MMT Left Deltoid (C5) 4- Good- Biceps Brachii Strength Grade 5 Normal Wrist Extension Strength Grade 5 Normal Triceps Brachii Strength Grade 3+ Fair+ Wrist Flexion Strength Grade 5 Normal Extensor Pollicis Longus Strength Grade 3 Fair Finger Abduction Strength Grade 5 Normal DTR Rt Biceps 2+ Lt Biceps 2+ Rt Brachioradialis 1+ Lt Brachioradialis 1+ Rt Triceps 1+ Lt Triceps 1+ Altered Sensation Left Upper extremity Dermatomes C7 Comment Slight hyposensation along C7 Dermatome Special Test C-Spine Foraminal Compression (Spurling) Positive Left Test C-spine Verterbral Accessory Movements Central P/A Murray,Left P/A that Elicit Symptoms Murray C-Spine Foraminal Distraction Test Described Bilateral numbness into hands with foraminal distraction Shoulder Abduction Relief Test Negative Left,Negative Right Shoulder Brachial Plexus Stretch Test Positive Left Neck Disability Index Neck Disability Index Section 1: Pain Intensity The pain is moderate at the moment Section 2: Personal Care (washing, I can look after myself dressing, etc.) normally but it causes extra pain Section 3: Lifting I can lift heavy weights but it gives extra pain Section 4: Reading I can read as much as I want to with slight pain in my neck Section 5: Headaches I have moderate headaches, which come infrequently Section 6: Concentration I can concentrate fully when I want to with slight difficulty Section 7: Work I can do most of my usual work , but no more Section 8: Driving I can drive my car as long as I want with moderate pain in my neck Section 9: Sleeping My sleep is moderately disturbed (2-3 hrs. sleepless) Section 10: Recreation I am able to engage in a few of my usual recreation activities because NDI Score 18 Outpatient Therapy Assessment Impairments Problems/Impairmments Palpation Tenderness,Impaired Range of Motion,Impaired Strength,Impaired Lifting, Impaired Household Care, Impaired Work Activities, Subjective C/O Pain Prognosis Rehab Potential Good Comment w HEP compliance. Clinical Impression Consistent with Diagnosis Yes Consistent with Neck pain with radiating pain. Additional details: Pt could benefit from Cervical Spine MRI, due to complaints of Bilateral tingling into hands during examination. Short Term Goals Number of Weeks 4 Decreased Palpation Tenderness Yes: 2-3/4 to TTP assessment above Increase Range of Motion Yes: Left Rotation/SB to 50% WNL Increase Strength Yes: 4/5 to L EPL and tricep Improve Ability For Household Care Yes: Wash dishes without increasing symptoms Improve Neck Disability Index Score Yes: <13 Decrease Subjective C/O Pain Yes: 510 with above assessment Patient to be Ind w/ HEP Yes Home Aid Goals Number of Weeks 8 Decreased Palpation Tenderness Yes: 0-1/4 to TTP assessment above Increase Range of Motion Yes: 75% WNL R rot and R SB Increase Strength Yes: 5 EPL and Triceps LUE Restore Ability to Lift Objects to Waist Yes: 10# without increasing c- Level spine symptoms Improve Ability For Household Care Yes: vacuum without increasing symptoms Improve Neck Disability Index Score Yes: <7 Decrease Subjective C/O Pain Yes: 2-10 with above activities Patient to be Ind w/ Advanced HEP Yes Outpatient Therapy Plan of Care Treatment Plan May Include Therapeutic Exercise Including Home Yes Exercise Program Manual Therapy Techniques Yes Neuromuscular Re-education Yes Therapeutic Activities to Return to Yes Previous Functional/Work Level Gait Training Yes ADL/Self Care Education Yes Dry Needling Yes Thermal Modalities Yes Electrical Stimulation Yes Iontophoresis Yes Massage Yes Manual Lymphatic Drainage Yes Eval/Re-Eval Yes Frequency Times per week 2 Duration Number of Weeks 8 Addendums This patient is a candidate for social No or vocational rehab? Patient/Guardian verbally acknowledges Yes understanding of treatment program and consents to further treatment? Patient/Guardian verbally acknowledges Yes understanding of diagnosis, prognosis and goals for treatment? Eval Complexity PT Charges 11063 - High Complexity Shoulder/Elbow Eval Shoulder Objective Measurements Elbow Objective Measurements PHYSICIAN CERTIFICATION: I certify the specified therapy services for Krissy Roberson are required, authorized, and reviewed every 30 days.
== END 2025-01-22 23:59 | disposition home or self-care (01) ==
LOC: PT 15:48
PROVIDERS: Visit Provider Nurse Practitioner Family
DX: M54.2 Cervicalgia (principal); M62.838 Other muscle spasm
CPT/HCPCS: 97163

== ENCOUNTER 2025-02-05 13:24 | Outpatient (CLI) | payer BC, SELFPAY ==
--- NOTE | 2025-02-05 13:45 | MR_ITS ---
FINAL REPORT TECHNIQUE: Multiplanar MR without gadolinium enhancement CLINICAL HISTORY: cervical spine pain, PAIN NUMBNESS TINGLING BILATERAL ARMS COMPARISON: 08/31/2019 FINDINGS: Limited images of the posterior fossa are unremarkable. Alignment is normal. Cervical spinal cord shows normal signal and contour. Postoperative changes are noted with fusion of the C5-C7 levels. C2-3: Unremarkable C3-4: A small central disc protrusion is present without evidence of canal stenosis or neural foraminal narrowing. C4-5: A small broad-based disc protrusion is noted centrally, without evidence of canal stenosis or neural foraminal narrowing. C5-6: Previously fused, unremarkable C6-7: Previously fused, unremarkable C7-T1: Unremarkable IMPRESSION: Minimal small central protrusions at the C3-4 and C4-5 levels, without evidence of canal stenosis or nerve root compression. Reviewed, Interpreted and Dictated by Chandler Reddy MD Transcribed by Tess Decker Authenticated and [facility]
== END 2025-02-05 23:59 | disposition home or self-care (01) ==
LOC: RAD 13:24
PROVIDERS: PCP Nurse Practitioner Family; Visit Provider Nurse Practitioner Family
DX: M50.221 Other cervical disc displacement at C4-C5 level (principal); M50.21 Other cervical disc displacement, high cervical region
CPT/HCPCS: 72141

== ENCOUNTER 2025-04-22 14:49 | Outpatient (CLI) | payer BC, SELFPAY ==
--- NOTE | 2025-04-22 14:51 | XR_ITS ---
FINAL REPORT TECHNIQUE: Chest PA & Lateral CLINICAL HISTORY: Shortness of breath, cough, wheezing COMPARISON: 10/27/2022 FINDINGS: 2 views of the chest were performed. The heart size is mildly enlarged. The lungs are underinflated. Pulmonary vascular congestion is noted. There is no acute cardiopulmonary process. There are no pleural effusions. There is no pneumothorax. There is cervical fusion hardware in the lower cervical spine. IMPRESSION: No acute cardiopulmonary process. Mild cardiomegaly and pulmonary vascular congestion. Reviewed, Interpreted and Dictated by Jermaine Serrano MD Transcribed by Caity Shelton Authenticated and [facility]
--- OUTSIDE RECORDS SUMMARY | 2025-04-22 14:51 | XMS_ITS | Clinical Summary ---
Author Organization [facility] Address [address] [place] [address] Care Team Providers Care Manufacturing Operator Name Role Phone Unavailable Primary Care Provider Unavailabl e Social History Tobacco Use Types Packs/Day Years Used Date Smoking Tobacco: Never Assessed Comments Unknown Sex and Gender Information Value Date Recorded Sex Assigned at Not on file Legal Sex Female 4:45 PM EST Gender Identity Not on file Sexual Orientation Not on file Plan of Treatment Health Maintenance Due Date Last Done Comments Breast Cancer Screening 1981 Hepatitis B (HepB) Vaccine ( 1 of 3 - 19+ 3-dose series) 01/25/2000 Tdap/Td Vaccine >11 yo (1 - Tdap) 01/25/2000 Cervical Cancer Screening 2002 HPV Vaccine (1 - 3-dose SCDM series) 01/25/2008 Colon Cancer Risk Assessment 2021 Annual SDOH Screening 09/19/2024 Influenza Vaccine (#1) 2025 Haemophilus Influenzae Type B (Hib) Vaccine Aged Out No longer eligible b ased on patient's age to complete this topic Hepatitis A (HepA) Vaccine Aged Out N o longer eligible based on patient's age to complete this topic Meningococcal ACWY Aged Out No longer eligible based on patient's age to complete this topic Pneumococcal Vaccines 6-49 yo Risk Aged Out No longer eligible based on patient's age to complete this topic Polio (IPV) Aged Out No longer eligi ble based on patient's age to complete this topic Rotavirus (RV) Vaccine Aged Out No lo nger eligible based on patient's age to complete this topic
[2025-04-22 17:55] LABS: Coronavirus 19, PCR Not Detected (NotDetected); Influenza A, PCR Not Detected (NotDetected); Influenza B, PCR Not Detected (NotDetected)
== END 2025-04-22 23:59 | disposition home or self-care (01) ==
LOC: RAD 14:49
PROVIDERS: PCP Nurse Practitioner Family; Visit Provider Nurse Practitioner Family
DX: J22 Unspecified acute lower respiratory infection (principal); U09.9 Post COVID-19 condition, unspecified; Z82.5 Family history of asthma and other chronic lower respiratory diseases; I51.7 Cardiomegaly; J81.1 Chronic pulmonary edema
CPT/HCPCS: 71046; 87631

== ENCOUNTER 2025-06-10 11:57 | Outpatient (CLI) | payer BC, SELFPAY ==
--- OUTSIDE RECORDS SUMMARY | 2025-06-10 12:00 | XMS_ITS | Clinical Summary ---
Author Organization [facility] Address [address] [place] [address] Care Team Providers Care Mixer Machine Feeder Name Role Phone Unavailable Primary Care Provider [...]
[2025-06-10 13:01] LABS: Albumin Level 4.3 g/dl (3.5-5.0); Chloride 103 mmol/L (98-107); Potassium 3.9 mmoL/L (3.5-5.1); Sodium 141 mmol/L (136-145)
[2025-06-10 13:03] LABS: Blood Urea Nitrogen 12 mg/dl (7-17); Creatinine,Serum 0.70 mg/dl (0.52-1.04); Estimated Glomerular Filt Rate 91 ml/min (>60); GFR (African American) 110 ML/MIN (>60)
[2025-06-10 13:04] LABS: Alanine Aminotransferase 25 U/L (12-78); Albumin/Globulin Ratio 1.7 (1.1-1.8); Alkaline Phosphatase 111 U/L (38-126); Anion Gap 14.9 mEq/L (5-15); Aspartate Amino Transferase 23 U/L (14-36); Bilirubin,Total 0.3 mg/dl (0.2-1.3); Calcium 9.7 mg/dl (8.4-10.2); Carbon Dioxide 27 mmol/L (22.0-30.0); Globulin 2.6 g/dL (1.3-3.2); Glucose 91 mg/dl (74-100); Total Protein,Serum 6.9 g/dl (6.3-8.2)
== END 2025-06-10 23:59 | disposition home or self-care (01) ==
LOC: LAB 11:58
PROVIDERS: PCP Nurse Practitioner Family; Visit Provider Obstetrics & Gynecology
DX: R14.0 Abdominal distension (gaseous) (principal); R53.83 Other fatigue; R23.2 Flushing; R61 Generalized hyperhidrosis
CPT/HCPCS: 36415; 80053

== ENCOUNTER 2025-07-06 08:07 | Outpatient (CLI) | payer BC, SELFPAY ==
--- OUTSIDE RECORDS SUMMARY | 2025-07-06 08:10 | XMS_ITS | Clinical Summary ---
Author Organization [facility] Address [address] [place] [address] Care Team Providers Care Computer Lab Aide Name Role Phone Unavailable Primary Care Provider [...]
[2025-07-06 11:00] LABS: Alanine Aminotransferase 22 U/L (12-78); Albumin Level 3.9 g/dl (3.5-5.0); Alkaline Phosphatase 141 U/L (38-126); Aspartate Amino Transferase 18 U/L (14-36); Bilirubin,Direct 0.2 mg/dl (0.0-0.4); Bilirubin,Indirect 0.3 mg/dL (0.0-0.9); Bilirubin,Total 0.5 mg/dl (0.2-1.3); Bilirubin,Unconjugated 0.3 mg/dL (0.0-1.1); Cholesterol 199 mg/dl (140-200); HDL Cholesterol 39 mg/dl (40-60); Total Protein,Serum 6.3 g/dl (6.3-8.2); Triglycerides 137 mg/dl (30-150)
[2025-07-06 11:09] LABS: NT Pro Brain Natriuretic Pep. 20.6 pg/mL (0-125)
[2025-07-06 11:12] LABS: C-Reactive Protein 20.7 mg/L (0-4)
[2025-07-06 11:18] LABS: Free Thyroxine Index 1.9 ug/dL (5.93-13.13); T4 (Thyroxine) 5.9 ug/dl (5.53-11.0); Triiodothryronine (T3) Uptake 33 % (23.5-40.5)
[2025-07-06 11:32] LABS: Thyroid Stimulating Hormone 1.93 uIU/mL (0.465-4.68)
== END 2025-07-06 23:59 | disposition home or self-care (01) ==
LOC: LAB 08:08
PROVIDERS: PCP Nurse Practitioner Family; Visit Provider Physician Assistant
DX: I25.118 Atherosclerotic heart disease of native coronary artery with other forms of angina pectoris (principal); I50.32 Chronic diastolic (congestive) heart failure; E78.2 Mixed hyperlipidemia
CPT/HCPCS: 36415; 80061; 80076; 83695; 83880; 84436; 84443; 84479; 85651; 86140

== ENCOUNTER 2025-07-09 15:27 | Inpatient (IN) | payer BC, SELFPAY ==
[2025-07-09] VITALS (14 sets, daily range): BP systolic 114–157; BP diastolic 57–98; PULSE 71–103; RESP 11–22; TEMP 36.6–37.1; O2SAT 93–98; BMI 42.9; BMI 45.3
--- NOTE | 2025-07-09 15:31 | ECG_ITS ---
APPROVED REPORT Exam: Resting ECG HR:92 bpm ECG Measurements Heart Rate 92 AXES MN 144 P 21 QRSd 86 QRS 59 QT 344 T 56 QTc 393 Conclusion SINUS RHYTHM NORMAL ECG UNCONFIRMED REPORT Electronically signed by : ELIAN ANNA, 07/11/2025 06:46:46
--- OUTSIDE RECORDS SUMMARY | 2025-07-09 15:42 | XMS_ITS | Clinical Summary ---
Author Organization [facility] Address [address] [place] [address] Care Team Providers Care Service Engine Repairer Name Role Phone Unavailable Primary Care Provider [...]
--- NOTE | 2025-07-09 15:44 | XR_ITS ---
FINAL REPORT CLINICAL HISTORY: CHEST PAIN COMPARISON: 04/22/2025 FINDINGS: No acute pulmonary opacity is present. There is no evidence of effusion or pneumothorax. Mediastinum is unremarkable. Heart size is normal. IMPRESSION: No acute abnormality. Reviewed, Interpreted and Dictated by Chandler Reddy MD Transcribed by Debbie Callahan Authenticated and [facility]
[2025-07-09 15:51] LABS: Hematocrit 37.2 % (37.0-47.0); Hemoglobin 11.9 g/dL (12.2-16.2); Immature Granulocytes % 3.8 %; Mean Corpuscular HGB Conc 32.0 g/dL (31.8-35.4); Mean Corpuscular Hemoglobin 27.9 pg (27.0-31.2); Mean Corpuscular Volume 87.1 fl (81-99); Nucleated Red Blood Cells % 0 %; Platelet Count 406 K/mm3 (142-424); Red Blood Count 4.27 M/mm3 (4.20-5.40); Red Cell Distribution Width-SD 48.8 fL; White Blood Count 13.1 K/mm3 (4.8-10.8)
--- NOTE | 2025-07-09 15:53 | [facility].EDCP ---
Discharge Plan Disposition Patient Disposition: Admitted Condition: Good Clinical Impressions Clinical Impression: History of coronary artery stent placement Chest pain Qualifiers: Chest pain type: other chest pain Qualified Code(s): R07.89 - Other chest pain Discharge ED Provider: Santana Weinberg HPI <VANE Miguel - Last Filed: 07/09/25 18:13> General Chief Complaint: Chest Pain Stated Complaint: chest pain Time Seen by Provider: 07/09/25 15:45 Mode of Arrival: Ambulatory Source of Information: Patient Description of Symptoms (Recalled from ER Triage Doc. by RN): patient presented for chest pain that started this morning. 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 paitent takes aspirin and eliquis regularly. patient stated the chest pain is 7/10, radiates down her left arm and into her back and is stabbing in nature. History of Present Illness HPI narrative: 45-year-old female presents emergency department with chest pain that is located substernally with some radiation to the back that started around 9:30 AM this morning, at maximal/this morning it was a 9 out of 10, currently a 7 out of 10, it is nonradiating, but patient does endorse some numbness and tingling , throughout her chest and up into her neck, currently pain is a 7 out of 10, describes it as a heaviness and stabbing . Patient did take 3 sublingual nitroglycerin at home. Patient has a trauma or injury per history, patient dates that she was just working on the computer , when the chest pain hit her. She denies any fever chills cough congestion recent illness, admits to shortness of breath, admits to nausea, no vomiting no abdominal pain, no constipation, no diarrhea, no urinary type symptomatology, patient is a non-smoker, denies any alcohol or drug use, patient has coronary artery disease status post 4 stent placements, on dual antiplatelet therapy Plavix and aspirin, follows with cardiology, prior cervical ACDF, CARY/MDD, hypertension, hyperlipidemia, migraines, GERD. Initial triage vitals are unremarkable. Please note that above description of symptoms, in this electronic medical record under categorization of recalled from ER triage doctor by RN are reflective of an initial nursing assessment, however, is not reflective of my full history and physical exam that was personally taken and clarified. Consequentially, this preceding description of symptoms, which may include the patient's categorized chief complaint in the EMR, do not reflect my personal clinical impression, and the ultimate description of history of present illness and patient stated complaints should be deferred to this section of the note. Unless stated otherwise or congruent with this section of the note, additional signs, symptoms, or incongruence should be interpreted as inaccurate with my clinical impression. MD complaint: chest pain Onset (ago): hour(s) Related Data Home Medications ?Medication ?Instructions ?Recorded ?Confirmed albuterol sulfate 90 mcg/actuation 2 puff inhalation Q6HP PRN SOA 04/14/24 07/09/25 aerosol inhaler aspirin 81 mg chewable tablet 81 mg PO DAILY 04/14/24 07/09/25 ranolazine 500 mg tablet,extended 500 mg PO BID 10/04/24 07/09/25 release,12 hr spironolactone 50 mg tablet 50 mg PO DAILY 11/08/24 07/09/25 atorvastatin 80 mg tablet 80 mg PO DAILY 05/15/25 07/09/25 clopidogrel 75 mg tablet 75 mg PO DAILY 05/15/25 07/09/25 escitalopram oxalate 20 mg tablet 20 mg PO DAILY 05/15/25 07/09/25 lidocaine 5 % topical patch 1 patch topical DAILY PRN Pain, 05/15/25 07/09/25 Moderate losartan 25 mg tablet 25 mg PO DAILY 05/15/25 07/09/25 metoprolol tartrate 100 mg tablet 100 mg PO BID 05/15/25 07/09/25 [id number]-acma-minerals 1 tab PO DAILY 06/10/25 07/09/25 Previous Rx's ?Medication ?Instructions ?Recorded nitroglycerin 0.4 mg sublingual 0.4 mg sublingual Q5M PRN chest 08/09/24 tablet pain #30 tabs isosorbide mononitrate 120 mg 120 mg PO DAILY #90 tabs 12/03/24 tablet,extended release 24 hr furosemide 40 mg tablet 40 mg PO DAILY #90 tabs 12/27/24 methocarbamol 750 mg tablet 1,500 mg (2 x 750 mg) PO TID #60 01/21/25 tabs atogepant 60 mg tablet (Qulipta) 60 mg PO DAILY #90 tabs 05/15/25 rimegepant 75 mg disintegrating 75 mg PO Q OTHER DAY PRN migraine 05/15/25 tablet (Nurtec ODT) headache #30 tabs pantoprazole 40 mg tablet,delayed 40 mg PO DAILY #90 tabs 06/27/25 release evolocumab 140 mg/mL subcutaneous 140 mg SQ Q2W #2 mL 07/09/25 pen injector (Nicolasa Grijalva) Allergies Allergy/AdvReac Type Severity Reaction Status Date / Time amlodipine (From Norvasc) Allergy Mild Unknown Verified 07/08/25 13:52 allergy reaction diphenhydramine (From AdvReac Intermediate Other Verified 07/08/25 13:52 Benadryl) [facility] <VANE Miguel - Last Filed: 07/09/25 18:13> [facility] Disclaimer: The information contained in this section may have been updated after the patient was seen, as this information can be updated by other users. Medical History (Updated 07/09/25 @ 18:50 by Arthur Ordonez APRN) Leukocytosis Perimenopausal symptoms Lower respiratory infection (e.g., bronchitis, pneumonia, pneumonitis, pulmonitis) Wheezing Cough Left knee pain Cervical paraspinal muscle spasm Cervical spine pain Trapezius muscle spasm BMI 40.0-44.9, adult Preop examination Back pain Cervical paraspinal muscle spasm RUQ pain Injury of thumb, left, superficial, infected Obesity (BMI 35.0-39.9 without comorbidity) Family history of breast cancer Diastolic dysfunction (HFpEF) heart failure with preserved ejection fraction Atypical chest pain Edema Viral respiratory illness UTI (urinary tract infection) Typical angina Abdominal pain Moderate persistent asthma Family history of asthma Dyspnea Chest pain BMI 39.0-39.9,adult History of left heart catheterization Unstable angina HLD (hyperlipidemia) Coronary artery disease Prediabetes Abnormal cardiovascular stress test Atypical angina Persistent dyspnea after COVID-19 Asthma Atypical chest pain Family history of ischemic heart disease Coronary artery calcification seen on CT scan Chest pain Orthopnea Heavy menstrual bleeding Obstructive sleep apnea syndrome Hypertensive disorder Surgical History (Updated 07/09/25 @ 17:28 by VANE Miguel) History of endometrial ablation History of coronary artery stent placement Hx of cardiac cath History of cervical spinal surgery Family History Mother Cancer breast cancer Grandmother Cancer breast Other Asthma COPD (chronic obstructive pulmonary disease) Dementia Diabetes Hypertension Lung cancer Social History Smoking Status: Never smoker second hand exposure: Yes alcohol intake: never substance use type: denies use current occupational status: employed Travel in the last 8 weeks?: None household members: family housing: house current occupation: gerard current occupational exposures/hazards: No caffeine: No Have you lived/traveled outside [place] in past 30 days?: No Contact w/someone who lives/traveled outside US past 30 days?: No Exposure to someone with infectious disease in past 14 days?: No Do you have a fever (greater than 100.4 F or 38 C)?: No Have you tested positive for COVID-19?: No Exposed to someone with COVID-19 in past 14 days?: No Do you have a sore throat?: No Do you have a cough?: No Do you have any weakness?: No Do you have any diarrhea?: No Are you experiencing any unusual bleeding?: No Do you have any muscle aches/pain?: No Do you have any abdominal pain?: No Are you experiencing loss of taste or smell?: No Other Medical History Have you received the Flu Vaccine for this season: No Have you received the Pneumonia Vaccine: No <VANE Miguel - Last Filed: 07/09/25 18:13> ROS Obtained: Yes All systems reviewed & no additional complaints except as documented Physical Exam <VANE Miguel - Last Filed: 07/09/25 18:13> General General appearance: alert and in no apparent distress Head Head exam: atraumatic and normocephalic Eye Eye exam: Present normal appearance, PERRL and EOMI Neck Neck exam: Present full ROM; Absent meningismus Chest Chest inspection: Present normal inspection; Absent tenderness Respiratory Respiratory exam: Absent respiratory distress, wheezes, stridor, accessory muscle use or prolonged expiratory phase Cardiovascular Cardiovascular exam: Present normal rhythm and other (Pulses equal and symmetric in bilateral upper and lower extremities) Abdominal Exam Abdominal exam: Absent distention, tenderness, guarding, rebound or rigidity Extremities Exam Extremities exam: Absent edema Neurological Exam Neurological exam: Present alert Psychiatric Psychiatric exam: Present normal affect Skin Skin exam: Present warm and dry HEART Score <VANE Miguel - Last Filed: 07/09/25 18:13> HEART Score HEART Score assessment performed?: Yes HEART Score: 3 <Santana Weinberg MD - Last Filed: 07/09/25 19:00> HEART Score History (anamnesis): Moderately suspicious ECG: Normal Age: <45 years Risk factors: Atherosclerosis history Troponin: </= normal limit HEART Score: 3 Critical Care <VANE Miguel - Last Filed: 07/09/25 18:13> Critical Care Time Critical Care Time: No Medical Decision Making <VANE Miguel - Last Filed: 07/09/25 18:13> Medical Records Medical records reviewed: Yes I reviewed the patient's medical records. Timothy Inquiry Pt receiving controlled substance: Yes Timothy was queried for this patient: No Reason not queried -: Emergent pt cond-no time Risks and benefits of using a controlled substance: were discussed with pt by me Vital Signs Vital Signs: 07/09/25 15:31 07/09/25 16:06 07/09/25 16:31 Temperature 98.2 F Temperature Source Oral Pulse Rate 80 84 Pulse Rate [Right Radial] 96 H Respiratory Rate 20 21 Blood Pressure 126/71 120/65 Blood Pressure [Right Arm] 157/98 H Blood Pressure Mean Blood Pressure Mean [Right Arm] 117 Blood Pressure Source [Right Arm] Automatic Cuff Blood Pressure Position [Right Arm] Sitting 02 Sat by Pulse Oximetry 98 96 97 Oxygen Delivery Method Room Air Room Air 07/09/25 17:01 07/09/25 18:02 Temperature 98.1 F Temperature Source Pulse Rate 83 71 Pulse Rate [Right Radial] Respiratory Rate 19 18 Blood Pressure 130/63 118/68 Blood Pressure [Right Arm] Blood Pressure Mean 82 Blood Pressure Mean [Right Arm] Blood Pressure Source [Right Arm] Blood Pressure Position [Right Arm] 02 Sat by Pulse Oximetry 93 L Oxygen Delivery Method Room Air Lab Data Lab results reviewed: Yes I reviewed the patient's lab results. Labs: Lab Results 07/09/25 15:38: WBC 13.1 H, RBC 4.27, Hgb 11.9 L, Hct 37.2, MCV 87.1, MCH 27.9, MCHC 32.0, RDW 15.4, Plt Count 406, MPV 10.6 H, Neut % (Auto) 66.2, Lymph % (Auto) 20.8, Evans % (Auto) 7.4, Eos % (Auto) 1.1, Baso % (Auto) 0.7, Neut # (Auto) 8.7 H, Lymph # (Auto) 2.7, Evans # (Auto) 1.0, Eos # (Auto) 0.1, Baso # (Auto) 0.1, Sodium 138, Potassium 3.9, Chloride 101, Carbon Dioxide 26, Anion Gap 14.9, BUN 18 H, Creatinine 0.80, Estimated Creat Clear 77, Estimated GFR 78, Est GFR ( Amer) 94, Glucose 134 H, Calcium 9.3, Total Bilirubin 0.4, AST 29, ALT 28, Alkaline Phosphatase 140 H, Troponin I < 0.01, NT-Pro-B Natriuret Pep < 20.0, Total Protein 7.5, Albumin 4.4, Globulin 3.1, Albumin/Globulin Ratio 1.4, Lipase 121, Serum HCG, Qual Negative 07/09/25 16:10: PT 10.4, INR 0.93, D-Dimer 0.47 07/09/25 15:38 07/09/25 15:38 Response Orders (Tests/Meds): ED MEDICATIONS Generic Name Dose Route Start Last Admin Trade Name Freq PRN Reason Stop Dose Admin Acetaminophen 650 mg 07/09/25 17:52 Acetaminophen 325mg Tab PO 08/08/25 17:51 Q4HP PRN Fever or Mild Pain (1-3) Hydrocodone Bitart/Acetaminophen 1 tab 07/09/25 17:52 Hydrocodone/Apap 5/325 Mg Tablet PO 08/08/25 17:51 Q4HP PRN Moderate Pain (4-6) Enoxaparin Sodium 40 mg 07/10/25 09:00 Enoxaparin 40mg/0.4ml Syringe SUBCUT 08/09/25 08:59 DAILY ALEX Nitroglycerin/Dextrose 250 mls @ 1.5 mls/hr 07/09/25 17:15 07/09/25 17:57 Nitroglycerin 50mg/250ml D5w IV 08/08/25 17:14 15 mcg/min .Q24H ALEX 4.5 mls/hr Protocol Titration 5 MCG/MIN Morphine Sulfate 4 mg 07/09/25 17:52 Morphine 4mg/Ml Syringe IV 08/08/25 17:51 Q4HP PRN Severe Pain (7-10) Nicotine 21 mg 07/09/25 17:52 Nicotine 21mg/24hr Patch TD 08/08/25 17:51 DAILYP PRN Nicotine Cravings Ondansetron HCl 4 mg 07/09/25 17:52 Ondansetron 4mg/2ml Vial IV 08/08/25 17:51 Q8HP PRN Nausea Discontinued Medications Generic Name Dose Route Start Last Admin Trade Name Freq PRN Reason Stop Dose Admin Aspirin 243 mg 07/09/25 15:51 07/09/25 16:02 Aspirin 81mg Chewable Tablet PO 07/09/25 15:52 243 mg ONCE ONE Administration Bumetanide 2 mg 07/09/25 17:11 07/09/25 17:27 Bumetanide 1mg/4ml Vial IV 07/09/25 17:12 2 mg ONCE ONE Administration Morphine Sulfate 4 mg 07/09/25 15:50 07/09/25 16:03 Morphine 4mg/Ml Syringe IV 07/09/25 15:51 4 mg ONCE ONE Administration Nitroglycerin 0.4 mg 07/09/25 15:52 07/09/25 16:03 Nitroglycerin 0.4mg Sl Tablet SL 07/09/25 15:53 0.4 mg ONCE ONE Administration Ondansetron HCl 4 mg 07/09/25 15:51 07/09/25 16:03 Ondansetron 4mg/2ml Vial IV 07/09/25 15:52 4 mg ONCE ONE Administration ORDERS Category Date Time Status XR chest portable Stat Exams 07/09/25 15:44 Completed Complete Blood Count Auto Diff Stat Lab 07/09/25 15:38 Completed Comprehensive Metabolic Panel Stat Lab 07/09/25 15:38 Completed D-Dimer Stat Lab 07/09/25 16:10 Completed HCG Qualitative, Serum Stat Lab 07/09/25 15:38 Completed Lipase Stat Lab 07/09/25 15:38 Completed NT Pro Brain Natriuretic Pep. Stat Lab 07/09/25 15:38 Completed PT INR [Prothrombin Time INR] Stat Lab 07/09/25 16:10 Completed Troponin I Q3H Lab 07/09/25 18:45 Ordered Troponin I Q3H Lab 07/09/25 21:45 Ordered Troponin I Stat Lab 07/09/25 15:38 Completed MDM Narrative Medical Decision Narrative: 45-year-old female presents emergency department with chest pain, see HPI for detailed past medical history, differential diagnose include but not limited to ACS, cardiac arrhythmia, electrolyte disturbance, panic attack, anxiety reaction, GERD, PE, costochondritis, pneumonia, pneumothorax, among others. I discussed this patient's case with the attending physician Dr. Weinberg Will obtain basic laboratory studies, D-dimer EKG, troponin, proBNP, coags,Lipase level, hCG qualitative serum, CXR, will give 243 mg p.o. aspirin, 0.4 mg p.o. sublingual nitroglycerin, 4 mg IV Zofran and 4 mg IV morphine for pain and nausea. CBC notable for mild leukocytosis at 13.1 otherwise unremarkable CMP is notable for minimal BUN elevation at 18, otherwise unremarkable CMP Initial troponin is less than 0.01, hCG qualitative is negative. proBNP is less than 20 lipase within normal limit I reviewed the patient's chest x-ray along the corresponding radiologic report, no acute abnormality. Coags within normal limits D-dimer is 0.47, thus effectively ruling out VTE/PE. Reexamination of the patient at approximately 5 PM, patient states that the nitroglycerin dose helped her chest pain, currently a 5 out of 10, still endorses heaviness and pressure substernally. I was able to discuss this patient's case and reviewed the patient's EKG with the on-call covering machine operator helper Dr. Whitley at approximately 5:08 p.m., he recommends nitroglycerin drip, 2 mg IV Bumex and admit to the hospital for cardiology consultation. I discussed this patient's case with the on-call hospitalist at approximately 5:25 PM, he is in agreement with current admission plan/treatment plan for unstable angina, we will admit to stepdown. I discussed need for admission with the patient family bedside patient family in agreement with current admission plan/treatment plan. <Santana Weinberg MD - Last Filed: 07/09/25 19:00> Vital Signs Vital Signs: 07/09/25 15:31 07/09/25 16:06 07/09/25 16:31 Temperature 98.2 F Temperature Source Oral Pulse Rate 80 84 Pulse Rate [Right Radial] 96 H Respiratory Rate 20 21 Blood Pressure 126/71 120/65 Blood Pressure [Right Arm] 157/98 H Blood Pressure Mean Blood Pressure Mean [Right Arm] 117 Blood Pressure Source [Right Arm] Automatic Cuff Blood Pressure Position [Right Arm] Sitting 02 Sat by Pulse Oximetry 98 96 97 Oxygen Delivery Method Room Air Room Air 07/09/25 17:01 07/09/25 18:02 Temperature 98.1 F Temperature Source Pulse Rate 83 71 Pulse Rate [Right Radial] Respiratory Rate 19 18 Blood Pressure 130/63 118/68 Blood Pressure [Right Arm] Blood Pressure Mean 82 Blood Pressure Mean [Right Arm] Blood Pressure Source [Right Arm] Blood Pressure Position [Right Arm] 02 Sat by Pulse Oximetry 93 L Oxygen Delivery Method Room Air Lab Data Labs: Lab Results 07/09/25 15:38: WBC 13.1 H, RBC 4.27, Hgb 11.9 L, Hct 37.2, MCV 87.1, MCH 27.9, MCHC 32.0, RDW 15.4, Plt Count 406, MPV 10.6 H, Neut % (Auto) 66.2, Lymph % (Auto) 20.8, Evans % (Auto) 7.4, Eos % (Auto) 1.1, Baso % (Auto) 0.7, Neut # (Auto) 8.7 H, Lymph # (Auto) 2.7, Evans # (Auto) 1.0, Eos # (Auto) 0.1, Baso # (Auto) 0.1, Sodium 138, Potassium 3.9, Chloride 101, Carbon Dioxide 26, Anion Gap 14.9, BUN 18 H, Creatinine 0.80, Estimated Creat Clear 77, Estimated GFR 78, Est GFR ( Amer) 94, Glucose 134 H, Calcium 9.3, Total Bilirubin 0.4, AST 29, ALT 28, Alkaline Phosphatase 140 H, Troponin I < 0.01, NT-Pro-B Natriuret Pep < 20.0, Total Protein 7.5, Albumin 4.4, Globulin 3.1, Albumin/Globulin Ratio 1.4, Lipase 121, Serum HCG, Qual Negative 07/09/25 16:10: PT 10.4, INR 0.93, D-Dimer 0.47 Response Orders (Tests/Meds): ED MEDICATIONS Generic Name Dose Route Start Last Admin Trade Name Freq PRN Reason Stop Dose Admin Acetaminophen 650 mg 07/09/25 17:52 Acetaminophen 325mg Tab PO 08/08/25 17:51 Q4HP PRN Fever or Mild Pain (1-3) Hydrocodone Bitart/Acetaminophen 1 tab 07/09/25 17:52 Hydrocodone/Apap 5/325 Mg Tablet PO 08/08/25 17:51 Q4HP PRN Moderate Pain (4-6) Enoxaparin Sodium 40 mg 07/10/25 09:00 Enoxaparin 40mg/0.4ml Syringe SUBCUT 08/09/25 08:59 DAILY ALEX Nitroglycerin/Dextrose 250 mls @ 1.5 mls/hr 07/09/25 17:15 07/09/25 17:57 Nitroglycerin 50mg/250ml D5w IV 08/08/25 17:14 15 mcg/min .Q24H ALEX 4.5 mls/hr Protocol Titration 5 MCG/MIN Morphine Sulfate 4 mg 07/09/25 17:52 Morphine 4mg/Ml Syringe IV 08/08/25 17:51 Q4HP PRN Severe Pain (7-10) Nicotine 21 mg 07/09/25 17:52 Nicotine 21mg/24hr Patch TD 08/08/25 17:51 DAILYP PRN Nicotine Cravings Ondansetron HCl 4 mg 07/09/25 17:52 Ondansetron 4mg/2ml Vial IV 08/08/25 17:51 Q8HP PRN Nausea Discontinued Medications Generic Name Dose Route Start Last Admin Trade Name Freq PRN Reason Stop Dose Admin Aspirin 243 mg 07/09/25 15:51 07/09/25 16:02 Aspirin 81mg Chewable Tablet PO 07/09/25 15:52 243 mg ONCE ONE Administration Bumetanide 2 mg 07/09/25 17:11 07/09/25 17:27 Bumetanide 1mg/4ml Vial IV 07/09/25 17:12 2 mg ONCE ONE Administration Morphine Sulfate 4 mg 07/09/25 15:50 07/09/25 16:03 Morphine 4mg/Ml Syringe IV 07/09/25 15:51 4 mg ONCE ONE Administration Nitroglycerin 0.4 mg 07/09/25 15:52 07/09/25 16:03 Nitroglycerin 0.4mg Sl Tablet SL 07/09/25 15:53 0.4 mg ONCE ONE Administration Ondansetron HCl 4 mg 07/09/25 15:51 07/09/25 16:03 Ondansetron 4mg/2ml Vial IV 07/09/25 15:52 4 mg ONCE ONE Administration ORDERS Category Date Time Status XR chest portable Stat Exams 07/09/25 15:44 Completed Complete Blood Count Auto Diff Stat Lab 07/09/25 15:38 Completed Comprehensive Metabolic Panel Stat Lab 07/09/25 15:38 Completed D-Dimer Stat Lab 07/09/25 16:10 Completed HCG Qualitative, Serum Stat Lab 07/09/25 15:38 Completed Lipase Stat Lab 07/09/25 15:38 Completed NT Pro Brain Natriuretic Pep. Stat Lab 07/09/25 15:38 Completed PT INR [Prothrombin Time INR] Stat Lab 07/09/25 16:10 Completed Troponin I Q3H Lab 07/09/25 18:45 Ordered Troponin I Q3H Lab 07/09/25 21:45 Ordered Troponin I Stat Lab 07/09/25 15:38 Completed ECG Data Tracing #1: ECG Narrative: Independently interpreted by me rate is 92, rhythm is regular, axis is normal, no ST elevation in anatomical contiguous leads, QTc 393. MDM Narrative Medical Decision Narrative: 45-year-old female presents emergency department with chest pain, see HPI for detailed past medical history, differential diagnose include but not limited to ACS, cardiac arrhythmia, electrolyte disturbance, panic attack, anxiety reaction, GERD, PE, costochondritis, pneumonia, pneumothorax, among others. I discussed this patient's case with the attending physician Dr. Weinberg Will obtain basic laboratory studies, D-dimer EKG, troponin, proBNP, coags,Lipase level, hCG qualitative serum, CXR, will give 243 mg p.o. aspirin, 0.4 mg p.o. sublingual nitroglycerin, 4 mg IV Zofran and 4 mg IV morphine for pain and nausea. CBC notable for mild leukocytosis at 13.1 otherwise unremarkable CMP is notable for minimal BUN elevation at 18, otherwise unremarkable CMP Initial troponin is less than 0.01, hCG qualitative is negative. proBNP is less than 20 lipase within normal limit I reviewed the patient's chest x-ray along the corresponding radiologic report, no acute abnormality. Coags within normal limits D-dimer is 0.47, thus effectively ruling out VTE/PE. Reexamination of the patient at approximately 5 PM, patient states that the nitroglycerin dose helped her chest pain, currently a 5 out of 10, still endorses heaviness and pressure substernally. I was able to discuss this patient's case and reviewed the patient's EKG with the on-call covering machine operator helper Dr. Whitley at approximately 5:08 p.m., he recommends nitroglycerin drip, 2 mg IV Bumex and admit to the hospital for cardiology consultation. I discussed this patient's case with the on-call hospitalist at approximately 5:25 PM, he is in agreement with current admission plan/treatment plan for unstable angina, we will admit to stepdown. I discussed need for admission with the patient family bedside patient family in agreement with current admission plan/treatment plan. Santana Weinberg MD: I was consulted by the LEIGHTON, and we discussed the complexity of the problems being addressed. I approved the treatment and management plan for this patient's care in the emergency department, thus performing a substantive portion of the medical decision making.
[2025-07-09 15:57] LABS: Alanine Aminotransferase 28 U/L (12-78); Albumin Level 4.4 g/dl (3.5-5.0); Albumin/Globulin Ratio 1.4 (1.1-1.8); Alkaline Phosphatase 140 U/L (38-126); Anion Gap 14.9 mEq/L (5-15); Aspartate Amino Transferase 29 U/L (14-36); Bilirubin,Total 0.4 mg/dl (0.2-1.3); Blood Urea Nitrogen 18 mg/dl (7-17); Calcium 9.3 mg/dl (8.4-10.2); Carbon Dioxide 26 mmol/L (22.0-30.0); Chloride 101 mmol/L (98-107); Creatinine Clearance Estimated 77 mL/min (50-200); Creatinine,Serum 0.80 mg/dl (0.52-1.04); Estimated Glomerular Filt Rate 78 ml/min (>60); GFR (African American) 94 ML/MIN (>60); Globulin 3.1 g/dL (1.3-3.2); Glucose 134 mg/dl (74-100); Potassium 3.9 mmoL/L (3.5-5.1); Sodium 138 mmol/L (136-145); Total Protein,Serum 7.5 g/dl (6.3-8.2)
[2025-07-09] MEDS: ASPIRIN 81MG CHEWABLE TABLET 243 MG PO (16:02)
[2025-07-09] MEDS: ONDANSETRON 4MG/2ML VIAL 4 MG IV ×2 (16:03→23:33)
[2025-07-09] MEDS: NITROGLYCERIN 0.4MG SL TABLET 0.4 MG SL (16:03)
[2025-07-09] MEDS: MORPHINE 4MG/ML SYRINGE 4 MG IV (16:03)
[2025-07-09 16:11] LABS: HCG Qualitative, Serum Negative (Negative)
[2025-07-09 16:13] LABS: Troponin I < 0.01 ng/ml (0.00-0.034)
[2025-07-09 16:16] LABS: Lipase 121 U/L (23-300)
[2025-07-09 16:27] LABS: NT Pro Brain Natriuretic Pep. < 20.0 pg/mL (0-125)
[2025-07-09 16:35] LABS: INR 0.93 (0.9-1.1); Prothrombin Time 10.4 seconds (10.1-12.5)
[2025-07-09 16:48] LABS: D-Dimer 0.47 ug/mL (0.0-0.5)
[2025-07-09] MEDS: BUMETANIDE 1MG/4ML VIAL 2 MG IV (17:27)
--- NOTE | 2025-07-09 17:28 | PC.NURSE ---
spoke with [place] for bed
[2025-07-09] MEDS: NITROGLYCERIN IN 5 % DEXTROSE 250 ML 1.5 MG IV (17:30)
--- NOTE | 2025-07-09 17:43 | PC.NURSE ---
report called to Valerie in ICU
--- NOTE | 2025-07-09 18:08 | PC.NURSE ---
Patient arrived to ICU at this time. Continuation of care plan.
--- NOTE | 2025-07-09 18:35 | P.HP_ITS ---
<Statement entered by Bandar Weldon MD - 07/12/25 12:58> Agree with plan of care as outlined by the TIMBER TREATING TANK OPERATOR. History of Present Illness *Admission Date: 07/09/25 *Reason for visit:: Chest pain *History of present illness: This is a 45-year-old female who has a past medical history significant for elevated left ventricular end-diastolic pressures, coronary artery disease, HFpEF, diastolic dysfunction, asthma, angina, prediabetes, hyperlipidemia, menorrhagia, obstructive sleep apnea, and hypertension who presents with a chief complaint of chest pain. Due to patient's symptoms, she presented to the emergency room for evaluation. While in the emergency room, patient had persistent chest pain that was relieved with nitro. Called speech and drama teacher recommended placing patient on a nitro drip and given her 2 mg of Bumex. Additionally, he recommended admission for evaluation in morning by speech and drama teacher. As result of these recommendations, hospital medicine was consulted and patient was admitted for further management. During my evaluation of the patient, patient states her chest pain started at 0 930 this morning and it was while she was at rest. She describes the chest pain as heaviness/stabbing. It is substernal and radiates to the back and neck. Patient also reports some associated numbness and tingling. At worst her chest pain was 9 out of 10. While on the nitro drip her chest pain is 3 out of 10. She does voice taking nitro at home with minimal relief. It is worth mentioning patient's most recent left heart cath formed in 2023 showed left main artery stenosis of 40% 30-40 stent stenosis in the right coronary arteries. Patient also had left end-diastolic volume pressures of 30. She also reports some intermittent swelling of her hands and legs. She is currently denying any dyspnea, orthopnea, shortness of breath, fever, chills, rigors, headache, ripping sensation of the chest, or diarrhea. She does have some intermittent nausea. BUN of 18, blood glucose 134, and alkaline phosphate 140. Chest x-ray was negative for any acute cardiopulmonary process. [facility] Disclaimer: The information contained in this section may have been updated after the patient was seen, as this information can be updated by other users. Medical History (Updated 07/09/25 @ 18:50 by Arthur Ordonez APRN) Leukocytosis Perimenopausal symptoms Lower respiratory infection (e.g., bronchitis, pneumonia, pneumonitis, pulmonitis) Wheezing Cough Left knee pain Cervical paraspinal muscle spasm Cervical spine pain Trapezius muscle spasm BMI 40.0-44.9, adult Preop examination Back pain Cervical paraspinal muscle spasm RUQ pain Injury of thumb, left, superficial, infected Obesity (BMI 35.0-39.9 without comorbidity) Family history of breast cancer Diastolic dysfunction (HFpEF) heart failure with preserved ejection fraction Atypical chest pain Edema Viral respiratory illness UTI (urinary tract infection) Typical angina Abdominal pain Moderate persistent asthma Family history of asthma Dyspnea Chest pain BMI 39.0-39.9,adult History of left heart catheterization Unstable angina HLD (hyperlipidemia) Coronary artery disease Prediabetes Abnormal cardiovascular stress test Atypical angina Persistent dyspnea after COVID-19 Asthma Atypical chest pain Family history of ischemic heart disease Coronary artery calcification seen on CT scan Chest pain Orthopnea Heavy menstrual bleeding Obstructive sleep apnea syndrome Hypertensive disorder Surgical History (Updated 07/09/25 @ 17:28 by VANE Miguel) History of endometrial ablation History of coronary artery stent placement Hx of cardiac cath History of cervical spinal surgery Family History Mother Cancer breast cancer Grandmother Cancer breast Other Asthma COPD (chronic obstructive pulmonary disease) Dementia Diabetes Hypertension Lung cancer Social History Smoking Status: Never smoker second hand exposure: Yes alcohol intake: never substance use type: denies use current occupational status: employed Travel in the last 8 weeks?: None household members: family housing: house current occupation: gerard current occupational exposures/hazards: No caffeine: No Have you lived/traveled outside [place] in past 30 days?: No Contact w/someone who lives/traveled outside [place] past 30 days?: No Exposure to someone with infectious disease in past 14 days?: No Do you have a fever (greater than 100.4 F or 38 C)?: No Have you tested positive for COVID-19?: No Exposed to someone with COVID-19 in past 14 days?: No Do you have a sore throat?: No Do you have a cough?: No Do you have any weakness?: No Do you have any diarrhea?: No Are you experiencing any unusual bleeding?: No Do you have any muscle aches/pain?: No Do you have any abdominal pain?: No Are you experiencing loss of taste or smell?: No Other Medical History Have you received the Flu Vaccine for this season: No Have you received the Pneumonia Vaccine: No Review of Systems Review of Systems Review of systems:: pertinent systems reviewed and negative unless documented below Constitutional Constitutional: Reports system reviewed and no additional complaints, except as documented Eyes Eyes: Reports system reviewed and no additional complaints, except as documented ENT Ears, Nose, Mouth, and Throat: Reports system reviewed and no additional complaints, except as documented *Cardiovascular Cardiovascular: Reports chest pain and Reports chest pain at rest *Respiratory Respiratory: Reports system reviewed and no additional complaints, except as documented *Gastrointestinal Gastrointestinal: Reports nausea *Genitourinary Genitourinary: Reports system reviewed and no additional complaints, except as documented *Musculoskeletal Musculoskeletal: Reports system reviewed and no additional complaints, except as documented Integumentary/Breasts Skin/Breast: Reports system reviewed and no additional complaints, except as documented *Neurologic Neurologic: Reports other Comments: Lightheadedness Psychiatric Psychiatric: Reports system reviewed and no additional complaints, except as documented Endocrine Endocrine: Reports system reviewed and no additional complaints, except as documented Hematologic/Lymphatic Hematologic/Lymphatic: Reports system reviewed and no additional complaints, except as documented Allergic/Immunologic Allergic/Immunologic: Reports system reviewed and no additional complaints, except as documented Meds Home Medications and Allergies Home Medications ?Medication ?Instructions ?Recorded ?Confirmed ?Type albuterol sulfate 90 mcg/actuation 2 puff inhalation Q 6HP PRN SOA 04/14/24 07/09/25 History aerosol inhaler aspirin 81 mg chewable tablet 81 mg PO DAILY 04/14/24 07/09/25 History nitroglycerin 0.4 mg sublingual 0.4 mg sublingual Q5M PRN chest 08/09/24 07/09/25 Rx tablet pain #30 tabs ranolazine 500 mg tablet,extended 500 mg PO BID 07/09/25 History release,12 hr spironolactone 50 mg tablet 50 mg PO DAILY 11/08/24 History isosorbide mononitrate 120 mg 120 mg PO DAILY #90 tabs 12/03/24 07/09/25 Rx tablet,extended release 24 hr furosemide 40 mg tablet 40 mg PO DAILY #90 tabs 12/1807/09/25 Rx methocarbamol 750 mg tablet 1,500 mg (2 x 750 mg) PO T ID #60 01/21/25 07/09/25 Rx tabs atogepant 60 mg tablet (Qulipta) 60 mg PO DAILY #90 ta bs 05/15/25 07/09/25 Rx atorvastatin 80 mg tablet 80 mg PO DAILY 05/15/2506/20 History clopidogrel 75 mg tablet 75 mg PO DAILY 05/15/2506/20 History escitalopram oxalate 20 mg tablet 20 mg PO DAILY 05/1507/09/25 History lidocaine 5 % topical patch 1 patch topical DAILY PRN Pain, 05/15/25 07/09/25 History Moderate losartan 25 mg tablet 25 mg PO DAILY 05/15/2506/20 History metoprolol tartrate 100 mg tablet 100 mg PO BID 07/09/25 History rimegepant 75 mg disintegrating 75 mg PO Q OTHER DAY P RN migraine 05/15/25 07/09/25 Rx tablet (Nurtec ODT) headache #30 tabs tdhuudpaoxgi-Qy-lvks-minerals 1 tab PO DAILY 06/10/25 07/09/25 History pantoprazole 40 mg tablet,delayed 40 mg PO DAILY #90 t abs 06/27/25 07/09/25 Rx release evolocumab 140 mg/mL subcutaneous 140 mg SQ Q2W #2 mL 07/09/25 07/09/25 Rx pen injector (Nicolasa Grijalva) New Prescriptions to Start Prescriptions: Allergies Allergy/AdvReac Type Severity Reaction Status Date / Time amlodipine (From Norvasc) Allergy Mild Unknown Verified 07/08/25 13:52 allergy reaction diphenhydramine (From AdvReac Intermediate Other Verified 07/08/25 13:52 Benadryl) Exam Data for Last 24 hours Vital signs and Labs for Last 24 Hours: Temp Pulse Resp BP Pulse Ox O2 Del Method 98.1 F 71 18 118/68 93 L Room Air 07/09/25 18:02 07/09/25 18:02 07/09/25 18:02 07/09/25 18:02 07/09/25 17:01 07/09/25 18:02 Laboratory Results - last 24 hr 07/09/25 15:38: WBC 13.1 H, RBC 4.27, Hgb 11.9 L, Hct 37.2, MCV 87.1, MCH 27.9, MCHC 32.0, RDW 15.4, Plt Count 406, MPV 10.6 H, Neut % (Auto) 66.2, Lymph % (Auto) 20.8, [place] % (Auto) 7.4, Eos % (Auto) 1.1, Baso % (Auto) 0.7, Neut # (Auto) 8.7 H, Lymph # (Auto) 2.7, [place] # (Auto) 1.0, Eos # (Auto) 0.1, Baso # (Auto) 0.1, Sodium 138, Potassium 3.9, Chloride 101, Carbon Dioxide 26, Anion Gap 14.9, BUN 18 H, Creatinine 0.80, Estimated Creat Clear 77, Estimated GFR 78, Est GFR ( Amer) 94, Glucose 134 H, Calcium 9.3, Total Bilirubin 0.4, AST 29, ALT 28, Alkaline Phosphatase 140 H, Troponin I < 0.01, NT-Pro-B Natriuret Pep < 20.0, Total Protein 7.5, Albumin 4.4, Globulin 3.1, Albumin/Globulin Ratio 1.4, Lipase 121, Serum HCG, Qual Negative 07/09/25 16:10: PT 10.4, INR 0.93, D-Dimer 0.47 I & O for Last 24 hours: Intake & Output 07/06/25 07/07/25 07/08/25 07/09/25 23:59 23:59 23:59 23:59 Intake Total 0.925 / 0.925 Output Total 0 / 0 Balance 0.925 / 0.925 Weight 127.488 kg Constitutional Constitutional: no acute distress, obese and cooperative *Routine HEENT Exam Head: Present normocephalic and atraumatic Eye: Present EOMI, PERRL and normal accommodation ENT: Present mucous membranes moist *Routine Neck Exam Neck: Present supple, full ROM and trachea midline *Routine Respiratory Exam Respiratory: Present CTA bilaterally, normal respiratory effort, able to speak i n complete sentences and symmetric chest movement *Routine Cardiovascular Exam Cardiovascular: Present RRR, Normal S1 and Normal S2 *Routine Abdominal Exam Abdominal: Present soft and normoactive bowel sounds *Routine Rectal Exam Rectal:: deferred *Routine Genitalia Exam Genitalia:: deferred *Routine Extremities Exam Extremities: Present full ROM, pulses intact and normal capillary refill Routine Back/Spine/Pelvis Exam Back/Spine: Present full ROM *Routine Skin Exam Skin: Present intact, dry, warm and normal turgor *Routine Neurological Exam Neurological: Present alert, oriented X3, CN II-XII intact and normal speech Routine Psychiatric Exam Psychiatric: Present normal affect, normal thought process, cooperative, good insight and good judgment H&P: Result Impressions This is a 45-year-old morbid obese male who has known coronary artery disease with prior left heart cath showing elevated end-diastolic left ventricular pressures who presents with unstable angina. Patient has had some relief with nitro drip. Assessment and Plan *Assessment and plan (1) Unstable angina: Status: Acute Category: Medical Code(s): I20.0 - Unstable angina (2) Leukocytosis: Status: Acute Qualifiers: Leukocytosis type: unspecified Qualified Code(s): D72.829 - Elevated white blood cell count, unspecified Category: Medical Code(s): D72.829 - Elevated white blood cell count, unspecified (3) Coronary artery disease: Status: Acute Qualifiers: Coronary Disease-Associated Artery/Lesion type: [place] artery [place] vs. transplanted heart: [place] heart Associated angina: with refractory angina Qualified Code(s): I25.112 - Atherosclerotic heart disease of [place] coronary artery with refractory angina pectoris Category: Medical Code(s): I25.10 - Atherosclerotic heart disease of [place] coronary artery without angina pectoris Plan Chest pain Unstable angina Coronary artery disease - We will follow the recommendations of cardiology and continue nitro drip and titrate for any persistent chest pain - Patient did receive the 2 mg of Bumex IV - Will consider 2D echo - Once patient's med rec is updated we will restart patient's dual antiplatelet therapy -Continue to trend patient's troponin -Patient did receive aspirin in the emergency room Leukocytosis -Patient is currently denying any fever or chills -Leukocytosis is mild -Will monitor for now -If patient has any fevers or chills, will obtain blood cultures x 2 and procalcitonin Plan: Admit patient to the stepdown Activity as tolerated Vital signs every 4 hours Cardiac diet CBC/CMP daily Lipid panel in a.m. 40 mg Lovenox subcu daily for DVT prophylax 5 mg of [place] p.o. every 4 hours PMR pain 4 mg of morphine IV push every 4 hours as needed severe pain 21 mg nicotine patch daily 4 mg Zofran IV push every 8 hours pain nausea bowel Full code I have discussed this case with attending physician Dr. Weldon and I look forward to more input
[2025-07-09 19:42] LABS: Troponin I < 0.01 ng/ml (0.00-0.034)
[2025-07-09] MEDS: ACETAMINOPHEN 325MG TAB 650 MG PO (20:54)
[2025-07-09] MEDS: ATORVASTATIN 40MG TABLET 80 MG PO (20:54)
[2025-07-09] MEDS: METHOCARBAMOL 500MG TABLET 1500 MG PO (21:14)
[2025-07-09 22:24] LABS: Troponin I < 0.01 ng/ml (0.00-0.034)
[2025-07-10] VITALS (38 sets, daily range): BP systolic 91–137; BP diastolic 46–76; PULSE 62–92; RESP 13–26; TEMP 36.4–36.6; O2SAT 89–96; BMI 45.1
[2025-07-10 06:02] LABS: Hematocrit 36.8 % (37.0-47.0); Hemoglobin 11.5 g/dL (12.2-16.2); Immature Granulocytes % 3.7 %; Mean Corpuscular HGB Conc 31.3 g/dL (31.8-35.4); Mean Corpuscular Hemoglobin 27.6 pg (27.0-31.2); Mean Corpuscular Volume 88.5 fl (81-99); Nucleated Red Blood Cells % 0 %; Platelet Count 354 K/mm3 (142-424); Red Blood Count 4.16 M/mm3 (4.20-5.40); Red Cell Distribution Width-SD 49.8 fL; White Blood Count 10.5 K/mm3 (4.8-10.8)
[2025-07-10 06:07] LABS: Albumin Level 3.9 g/dl (3.5-5.0); Chloride 100 mmol/L (98-107); Potassium 4.1 mmoL/L (3.5-5.1); Sodium 138 mmol/L (136-145)
[2025-07-10 06:09] LABS: Blood Urea Nitrogen 14 mg/dl (7-17); Creatinine Clearance Estimated 84 mL/min (50-200); Creatinine,Serum 0.80 mg/dl (0.52-1.04); Estimated Glomerular Filt Rate 78 ml/min (>60); GFR (African American) 94 ML/MIN (>60)
[2025-07-10 06:10] LABS: Alanine Aminotransferase 25 U/L (12-78); Albumin/Globulin Ratio 1.3 (1.1-1.8); Alkaline Phosphatase 126 U/L (38-126); Anion Gap 11.1 mEq/L (5-15); Aspartate Amino Transferase 30 U/L (14-36); Bilirubin,Total 0.4 mg/dl (0.2-1.3); Calcium 8.4 mg/dl (8.4-10.2); Carbon Dioxide 31 mmol/L (22.0-30.0); Cholesterol 222 mg/dl (140-200); Globulin 3.0 g/dL (1.3-3.2); Glucose 111 mg/dl (74-100); Magnesium 2.3 mg/dl (1.6-2.3); Total Protein,Serum 6.9 g/dl (6.3-8.2); Triglycerides 92 mg/dl (30-150)
[2025-07-10 07:30] LABS: HDL Cholesterol 40 mg/dl (40-60)
--- NOTE | 2025-07-10 07:50 | PC.NURSE ---
Patient complains of 3/10 chest pain at this time. notified. Per , Do not start back Nitroglycerin drip at this time, offer patient a PRN pain medication. Continuation of care plan.
--- NOTE | 2025-07-10 07:55 | PC.NURSE ---
Patient refused PRN pain medication as ordered on NOV. Continuation of care plan.
[2025-07-10] MEDS: ACETAMINOPHEN 325MG TAB 650 MG PO ×2 (07:56→21:45)
[2025-07-10] MEDS: DEFINITY US ECHO CONTRAST 2ML INJ 2 MG IV (08:41)
--- NOTE | 2025-07-10 08:49 | PC.NURSE ---
Per Bandar Weldon, awaiting Cardiology to see patient this morning to verify morning medications as ordered on NOV. Continuation of care plan.
--- NOTE | 2025-07-10 09:00 | CA_ITS ---
APPROVED REPORT EXAM: Comprehensive 2D, Doppler, and color-flow Echocardiogram with contrast Program Engineer: Vanessa Michelle CRT Ht: 5 ft 6 in Wt: 281lbs BSA: 2.31 BP: 125/68 mmHg Indications: Chest Pain, Diabetes, Fatigue, Peripheral Edema, CAD, Hyperlipidemia, Hypertension/HDD, stents, hx of covid Echo Enhancing Agent Indication: Endocardial border delineation Agent(s) / Amount(s) Used: Definity 2 cc Comments: Definity given 2D Dimensions LA Volume 30.10 mL LA Volume Index 13.03 mL/m2 (M/F) 16-34 M-Mode Dimensions RVDd 1.73 cm (0.9-2.6) LA Diam 3.23 cm (1.9-4.0) LVDd 5.43 cm (3.5-5.7) LVDs 3.70 cm (3.5-5.7) IVSd 1.65 cm (0.6-1.1) PWd 0.64 cm (0.6-1.1) EF (Teich) 59.40% FS 31.90% EDV (Teich) 143.10 mL ESV (Teich) 58.10 mL LV Diastology E Decel Time 140 (160-240 msec) E/A Ratio 1.2 MED A' 8.10 cm/s LAT A' 8.40 cm/s Aortic Valve AO Peak GR. 9.90 mmHg Mitral Valve MV E Max Talib. 86.0 (40-130 cm/s) MV A Velocity 72.0 (40-130 cm/s) E/A Ratio 1.21 MV PHT 41.0 ms Pulmonary Valve PV Peak Velocity 102.0 (50-150 cm/s) Tricuspid Valve TR P. Velocity 195.00 cm/s RAP Estimate 10.00 mmHg RVSP 25.20 mmHg Left Ventricle The left ventricle is normal size. Left ventricular systolic function is normal. The left ventricular ejection fraction is within the normal range. There is normal left ventricular wall thickness. There is normal LV segmental wall motion. The left ventricular diastolic function is normal. No left ventricle thrombus noted on this study. LVEF is 55% Right Ventricle The right ventricle is normal size. The right ventricular systolic function is normal. Atria The left atrium sis mildly dilated. The right atrium size is normal. There is no color Doppler evidence of interatrial shunt. Aortic Valve The aortic valve opens well. There is no hemodynamically significant aortic valvular stenosis. No aortic regurgitation is present. Mitral Valve The mitral valve is normal in structure. No evidence of mitral valve stenosis. Trace mitral regurgitation is present. Tricuspid Valve The tricuspid valve leaflets are thin and pliable. Trace tricuspid regurgitation. There is insufficient TR jet to estimate RVSP. Pulmonic Valve The pulmonary valve is grossly normal in structure. Trace pulmonic valve regurgitation is present. Great Vessels The aortic root is normal in size. IVC is normal in size and collapses >50% with inspiration. Pericardium There is no pericardial effusion. Other Information Study Quality: Fair Conclusion Normal biventricular systolic function. Mild LA dilation. No significant valvular stenosis or regurgitation. Electronically signed by : Meghan Park MD 07/10/2025 11:00:44
[2025-07-10] MEDS: CLOPIDOGREL 75MG TAB 75 MG PO (10:04)
[2025-07-10] MEDS: ESCITALOPRAM 20MG TABLET 20 MG PO (10:04)
[2025-07-10] MEDS: RANOLAZINE 500MG ER TABLET 500 MG PO ×2 (10:04→20:54)
[2025-07-10] MEDS: ASPIRIN 81MG CHEWABLE TABLET 81 MG PO (10:05)
[2025-07-10] MEDS: IRBESARTAN 75MG TABLET 75 MG PO (10:05)
[2025-07-10] MEDS: METOPROLOL TARTRATE 50MG TABLET 100 MG PO ×2 (10:06→21:05)
[2025-07-10] MEDS: METHOCARBAMOL 500MG TABLET 1500 MG PO ×2 (10:07→20:54)
[2025-07-10] MEDS: ISOSORBIDE MONO 60MG TAB.ER.24H 120 MG PO (10:07)
[2025-07-10] MEDS: SPIRONOLACTONE 25MG TABLET 50 MG PO (10:07)
--- NOTE | 2025-07-10 10:45 | EXP.CARD.CON ---
History of Present Illness History of Present Illness Consult date: 07/10/25 Requesting physician: Bandar Weldon Consult reason: chest pain Chief complaint: chest pain History of present illness: Pamela Roberson is a 45-year-old white female with past medical history of coronary artery disease with previous stenting to LAD and a medical management heart cath noted 07/2024, hypertension, hyperlipidemia, HFpEF with a severely elevated LVEDP who presented to emergency department with complaints of chest pain starting yesterday morning. EKG negative for STEMI. Serial troponins remain negative. D-dimer was negative. Chest x-ray was negative for acute cardiopulmonary process. Patient was started on nitro drip and given Bumex 2 mg IV for volume overload. Nitro drip was turned off throughout the evening. This morning she is resting comfortably reports she has mild chest pressure 2 out of 10. Patient is negative 1 Liter. [facility] Disclaimer: The information contained in this section may have been updated after the patient was seen, as this information can be updated by other users. Medical History (Updated 07/10/25 @ 10:55 by Noelle Angelo APRN) Leukocytosis Perimenopausal symptoms Lower respiratory infection (e.g., bronchitis, pneumonia, pneumonitis, pulmonitis) Wheezing Cough Left knee pain Cervical paraspinal muscle spasm Cervical spine pain Trapezius muscle spasm BMI 40.0-44.9, adult Preop examination Back pain Cervical paraspinal muscle spasm RUQ pain Injury of thumb, left, superficial, infected Obesity (BMI 35.0-39.9 without comorbidity) Family history of breast cancer Diastolic dysfunction (HFpEF) heart failure with preserved ejection fraction Atypical chest pain Edema Viral respiratory illness UTI (urinary tract infection) Typical angina Abdominal pain Moderate persistent asthma Family history of asthma Dyspnea Chest pain BMI 39.0-39.9,adult History of left heart catheterization Unstable angina HLD (hyperlipidemia) Coronary artery disease Prediabetes Abnormal cardiovascular stress test Atypical angina Persistent dyspnea after COVID-19 Asthma Atypical chest pain Family history of ischemic heart disease Coronary artery calcification seen on CT scan Chest pain Orthopnea Heavy menstrual bleeding Obstructive sleep apnea syndrome Hypertensive disorder Surgical History (Updated 07/09/25 @ 17:28 by VANE Miguel) History of endometrial ablation History of coronary artery stent placement Hx of cardiac cath History of cervical spinal surgery Family History Mother Cancer breast cancer Grandmother Cancer breast Other Asthma COPD (chronic obstructive pulmonary disease) Dementia Diabetes Hypertension Lung cancer Social History Smoking Status: Never smoker second hand exposure: Yes alcohol intake: never substance use type: denies use current occupational status: employed Travel in the last 8 weeks?: None household members: family housing: house current occupation: gerard current occupational exposures/hazards: No caffeine: No Have you lived/traveled outside [place] in past 30 days?: No Contact w/someone who lives/traveled outside [place] past 30 days?: No Exposure to someone with infectious disease in past 14 days?: No Do you have a fever (greater than 100.4 F or 38 C)?: No Have you tested positive for COVID-19?: No Exposed to someone with COVID-19 in past 14 days?: No Do you have a sore throat?: No Do you have a cough?: No Do you have any weakness?: No Do you have any diarrhea?: No Are you experiencing any unusual bleeding?: No Do you have any muscle aches/pain?: No Do you have any abdominal pain?: No Are you experiencing loss of taste or smell?: No Review of Systems Review of Systems Review of systems:: pertinent systems reviewed and negative unless documented below Constitutional Constitutional: Reports system reviewed and no additional complaints, except as documented *Cardiovascular Cardiovascular: Reports system reviewed and no additional complaints, except as documented *Respiratory Respiratory: Reports system reviewed and no additional complaints, except as documented *Gastrointestinal Gastrointestinal: Reports system reviewed and no additional complaints, except as documented *Neurologic Neurologic: Denies confusion and Reports other Psychiatric Psychiatric: Reports system reviewed and no additional complaints, except as documented and Denies confusion Exam Data for Last 24 hours Vital signs and Labs for Last 24 Hours: Temp Pulse Resp BP Pulse Ox O2 Del Method 97.7 F 81 20 137/76 92 L Room Air 07/10/25 08:01 07/10/25 09:00 07/10/25 09:00 07/10/25 09:00 07/10/25 09:00 07/10/25 09:00 Laboratory Results - last 24 hr 07/09/25 15:38: WBC 13.1 H, RBC 4.27, Hgb 11.9 L, Hct 37.2, MCV 87.1, MCH 27.9, MCHC 32.0, RDW 15.4, Plt Count 406, MPV 10.6 H, Neut % (Auto) 66.2, Lymph % (Auto) 20.8, [place] % (Auto) 7.4, Eos % (Auto) 1.1, Baso % (Auto) 0.7, Neut # (Auto) 8.7 H, Lymph # (Auto) 2.7, [place] # (Auto) 1.0, Eos # (Auto) 0.1, Baso # (Auto) 0.1, Sodium 138, Potassium 3.9, Chloride 101, Carbon Dioxide 26, Anion Gap 14.9, BUN 18 H, Creatinine 0.80, Estimated Creat Clear 77, Estimated GFR 78, Est GFR ( Amer) 94, Glucose 134 H, Calcium 9.3, Total Bilirubin 0.4, AST 29, ALT 28, Alkaline Phosphatase 140 H, Troponin I < 0.01, NT-Pro-B Natriuret Pep < 20.0, Total Protein 7.5, Albumin 4.4, Globulin 3.1, Albumin/Globulin Ratio 1.4, Lipase 121, Serum HCG, Qual Negative 07/09/25 16:10: PT 10.4, INR 0.93, D-Dimer 0.47 07/09/25 19:03: Troponin I < 0.01 07/09/25 21:55: Troponin I < 0.01 07/10/25 04:45: WBC 10.5, RBC 4.16 L, Hgb 11.5 L, Hct 36.8 L, MCV 88.5, MCH 27.6, MCHC 31.3 L, RDW 15.4, Plt Count 354, MPV 10.8 H, Neut % (Auto) 63.9, Lymph % (Auto) 21.4, [place] % (Auto) 8.7, Eos % (Auto) 1.4, Baso % (Auto) 0.9, Neut # (Auto) 6.7, Lymph # (Auto) 2.3, [place] # (Auto) 0.9, Eos # (Auto) 0.2, Baso # (Auto) 0.1, Sodium 138, Potassium 4.1, Chloride 100, Carbon Dioxide 31 H, Anion Gap 11.1, BUN 14, Creatinine 0.80, Estimated Creat Clear 84, Estimated GFR 78, Est GFR ( Amer) 94, Glucose 111 H, Calcium 8.4, Magnesium 2.3, Total Bilirubin 0.4, AST 30, ALT 25, Alkaline Phosphatase 126, Total Protein 6.9, Albumin 3.9 D, Globulin 3.0, Albumin/Globulin Ratio 1.3, Triglycerides 92, Cholesterol 222 H, LDL Cholesterol Direct 148.90 H, VLDL Cholesterol 18, HDL Cholesterol 40, Cholesterol/HDL Ratio 5.6 H I & O for Last 24 hours: Intake & Output 07/07/25 07/08/25 07/09/25 07/10/25 23:59 23:59 23:59 23:59 Intake Total 74.125 / 74.125 7.5 / 7.5 Output Total 700 / 700 500 / 500 Balance -625.875 / -625.875 -492.5 / -492.5 Weight 281 lb 1 oz 280 lb 11.2 oz Constitutional Constitutional: no acute distress *Routine Respiratory Exam Respiratory: Present CTA bilaterally and symmetric chest movement *Routine Cardiovascular Exam Cardiovascular: Present RRR, Normal S1 and Normal S2 *Routine Abdominal Exam Abdominal: Present soft and normoactive bowel sounds; Absent tenderness *Routine Extremities Exam Extremities: Present edema, full ROM and normal capillary refill *Routine Skin Exam Skin: Present intact, dry and warm Detailed Neck Exam: Thyroids Thyroid: Absent bruit Meds Home Medications and Allergies Home Medications ?Medication ?Instructions ?Recorded ?Confirmed ?Type albuterol sulfate 90 mcg/actuation 2 puff inhalation Q6HP PRN SOA 04/14/24 07/09/25 History aerosol inhaler aspirin 81 mg chewable tablet 81 mg PO DAILY 04/14/24 07/09/25 History nitroglycerin 0.4 mg sublingual 0.4 mg sublingual Q5M PRN chest 08/09/24 07/09/25 Rx tablet pain #30 tabs ranolazine 500 mg tablet,extended 500 mg PO BID 10/04/24 07/09/25 History release,12 hr spironolactone 50 mg tablet 50 mg PO DAILY 11/08/24 07/09/25 History isosorbide mononitrate 120 mg 120 mg PO DAILY #90 tabs 12/03/24 07/09/25 Rx tablet,extended release 24 hr furosemide 40 mg tablet 40 mg PO DAILY #90 tabs 12/27/24 07/09/25 Rx methocarbamol 750 mg tablet 1,500 mg (2 x 750 mg) PO TID #60 01/21/25 07/09/25 Rx tabs atogepant 60 mg tablet (Qulipta) 60 mg PO DAILY #90 tabs 05/15/25 07/09/25 Rx atorvastatin 80 mg tablet 80 mg PO DAILY 05/15/25 07/09/25 History clopidogrel 75 mg tablet 75 mg PO DAILY 05/15/25 07/09/25 History escitalopram oxalate 20 mg tablet 20 mg PO DAILY 05/15/25 07/09/25 History lidocaine 5 % topical patch 1 patch topical DAILY PRN Pain, 05/15/25 07/09/25 History Moderate losartan 25 mg tablet 25 mg PO DAILY 05/15/25 07/09/25 History metoprolol tartrate 100 mg tablet 100 mg PO BID 05/15/25 07/09/25 History rimegepant 75 mg disintegrating 75 mg PO Q OTHER DAY PRN migraine 05/15/25 07/09/25 Rx tablet (Nurtec ODT) headache #30 tabs [id number]-[id number]-minerals 1 tab PO DAILY 06/10/25 07/09/25 History pantoprazole 40 mg tablet,delayed 40 mg PO DAILY #90 tabs 06/27/25 07/09/25 Rx release evolocumab 140 mg/mL subcutaneous 140 mg SQ Q2W #2 mL 07/09/25 07/09/25 Rx pen injector (Repatha SureClick) New Prescriptions to Start Prescriptions: Allergies Allergy/AdvReac Type Severity Reaction Status Date / Time amlodipine (From Norvasc) Allergy Mild Unknown Verified 07/08/25 13:52 allergy reaction diphenhydramine (From AdvReac Intermediate Other Verified 07/08/25 13:52 Benadryl) Assessment and Plan *Assessment and plan (1) Coronary artery disease: Status: Acute Qualifiers: Associated angina: with refractory angina Coronary Disease-Associated Artery/Lesion type: [place] artery [place] vs. transplanted heart: [place] heart Qualified Code(s): I25.112 - Atherosclerotic heart disease of [place] coronary artery with refractory angina pectoris Category: Medical Code(s): I25.10 - Atherosclerotic heart disease of [place] coronary artery without angina pectoris (2) (HFpEF) heart failure with preserved ejection fraction: Status: Acute Category: Medical Code(s): I50.30 - Unspecified diastolic (congestive) heart failure (3) Diastolic dysfunction: Status: Acute Category: Medical Code(s): I51.89 - Other ill-defined heart diseases Plan Coronary artery disease Prior HOLA Normal Troponin EKG negative for stemi D dimer negative Chest xray negative Medical managment LHC 07/2024 with severely elevated LVEDP Continue Apirin, atorvastatin, plavix, imdur and ranexa Will attempt diuresis first to see if symptoms improve and consider LHC if symptoms persist. Diastolic Dysfunction Change Lasix to Bumex 2mg IV Has diuresed over 1 Liter Continue aldactone Repeat echo shows Normal EF with mild LA dilation HLD LDL is 148, on statin, currently awaiting repatha approval CV summary 07/10/2025: Repeat echo pending. No plan for procedure today. Will increase diuretics and monitor patient response. [id number] update: Patient is diuresing well and is negative almost 2 L. She continues to have mild chest pain and pressure despite Ranexa, Imdur, beta-zohra and diuretics. Discussed proceeding with a left heart catheterization to further evaluate coronary artery disease-she is agreeable to proceed.
[2025-07-10] MEDS: BUMETANIDE 1MG/4ML VIAL 2 MG IV (11:04)
--- NOTE | 2025-07-10 11:36 | PC.NURSE ---
Patient states her chest feels sore at this time. Patient states it is 3/10 on pain scale. states to use PRN pain medications to treat patients pain. Continuation of care plan.
[2025-07-10] MEDS: HYDROCODONE/APAP 5/325 MG TABLET 1 TAB PO (12:08)
--- NOTE | 2025-07-10 14:25 | IR_ITS ---
APPROVED REPORT Patient Location: Inpatient PROCEDURES Left heart catheterization Left ventriculogram Selective coronary angiogram INDICATION Unstable angina, Known coronary artery disease Informed consent was obtained prior to the procedure. COMPLICATIONS NONE Estimated Blood Loss: LESS THAN 10 ML TECHNIQUE One percent lidocaine used to anesthetize the right anterior aspect of the wrist. The right radial artery was accessed via the Seldinger technique. A 6 [place] sheath was placed in the right radial artery. 2.5 mg of Verapamil, 800 mcg of nitroglycerin, 1mg Lidocaine and 5000 U Heparin were given through the arterial sheath. The JL3 catheter was also used to perform left heart catheterization, left ventriculogram and selective coronary angiogram. At the end of the procedure the sheath was removed good hemostasis was achieved using Traclet band, patient was transferred to the postop holding area in stable condition. ANGIOGRAPHIC RESULTS The left main artery Distal left main has an eccentric 80% stenosis The left anterior descending artery Is proximally normal followed by proximal to mid vessel stents which are widely patent with minimal in-stent restenosis with excellent proximal distal transitioning The circumflex artery Nondominant with proximal to mid vessel 40 to 50% stenosis The right coronary artery Dominant with mid vessel 40 to 50% stenoses and distal 30% stenosis The SOLORIO ventriculogram reveals Normal 65% The left ventricular end-diastolic pressure 25 mmHg IMPRESSION Severe distal left main disease as described above Normal ejection fraction Elevated LVEDP PLAN 1. Start high intensity statin and aspirin this admission 2. Diuresis for elevated LVEDP 3. Patient requires coronary artery bypass surgery during this index admission due to severe distal left main disease 4. Will transfer to [facility] this admission for coronary artery bypass surgery Electronically signed by : Claude Whitley MD 07/10/2025 16:46:37
--- NOTE | 2025-07-10 14:47 | PC.NURSE ---
notified of patients blood pressure of 97/40 (56) and patients complaint of 3/10 chest soreness and aching. Per , try to give patient a GI Cocktail. New orders received. Refer to MAR. Continuation of care plan.
[2025-07-10] MEDS: BELLADONNA ALKALOIDS 60 ML ML PO (15:06)
--- NOTE | 2025-07-10 16:00 | PC.NURSE ---
Patient taken down to director of cardiac cath lab at this time. Patient taken via wheelchair with industrial laborer staff.
[2025-07-10] MEDS: NITROGLYCERIN 800MCG/8ML SYR (CATH LAB) 800 MCG IA (16:17)
[2025-07-10] MEDS: 0.9 % SODIUM CHLORIDE 500 ML 25 ML IV (16:17)
[2025-07-10] MEDS: HEPARIN 1,000 UNITS/ML 10ML VIAL (CATH LAB) 5000 UNIT IV (16:18)
[2025-07-10] MEDS: LIDOCAINE 1% 10ML MDV 10 ML IJ (16:18)
[2025-07-10] MEDS: HEPARIN 1,000 UNITS/500ML NS (CATH LAB) 3000 UNIT IV (16:18)
[2025-07-10] MEDS: VERAPAMIL 2.5MG/ML 2ML VIAL 2.5 MG IV (16:18)
[2025-07-10] MEDS: MIDAZOLAM HCL 1MG/ML 5ML VIAL 1 MG IV (16:42)
[2025-07-10] MEDS: FENTANYL 100MCG/2ML VIAL 50 MCG IV (16:42)
--- NOTE | 2025-07-10 16:58 | PC.NURSE ---
Patient arrived to ICU at this time. Patient brought up by stretcher with dental laboratory technician apprentice staff. Continuation of care plan.
--- NOTE | 2025-07-10 17:15 | PC.NURSE ---
Patient status given to transfer center RN Janneth at this time. Per SIOBHAN Lagunas awaiting bed assignment at this time. Continuation of care plan.
--- NOTE | 2025-07-10 17:16 | PC.NURSE ---
Received call from transfer center to get information on patient. They advised they will work on obtaining a bed for the patient and that a nurse will be calling to get updated vitals and to get report on patient.
--- NOTE | 2025-07-10 17:23 | PC.NURSE ---
Janneth a nurse at [facility] on the phone at this time to get report on patient.
--- NOTE | 2025-07-10 17:44 | EXP.DC.SUM ---
General Admission date:: 07/09/25 HPI HPI HPI: This is a 45-year-old female who has a past medical history significant for elevated left ventricular end-diastolic pressures, coronary artery disease, HFpEF, diastolic dysfunction, asthma, angina, prediabetes, hyperlipidemia, menorrhagia, obstructive sleep apnea, and hypertension who presents with a chief complaint of chest pain. Due to patient's symptoms, she presented to the emergency room for evaluation. While in the emergency room, patient had persistent chest pain that was relieved with nitro. Called wad impregnator recommended placing patient on a nitro drip and given her 2 mg of Bumex. Additionally, he recommended admission for evaluation in morning by wad impregnator. As result of these recommendations, hospital medicine was consulted and patient was admitted for further management. During my evaluation of the patient, patient states her chest pain started at 0 930 this morning and it was while she was at rest. She describes the chest pain as heaviness/stabbing. It is substernal and radiates to the back and neck. Patient also reports some associated numbness and tingling. At worst her chest pain was 9 out of 10. While on the nitro drip her chest pain is 3 out of 10. She does voice taking nitro at home with minimal relief. It is worth mentioning patient's most recent left heart cath formed in 2023 showed left main artery stenosis of 40% 30-40 stent stenosis in the right coronary arteries. Patient also had left end-diastolic volume pressures of 30. She also reports some intermittent swelling of her hands and legs. She is currently denying any dyspnea, orthopnea, shortness of breath, fever, chills, rigors, headache, ripping sensation of the chest, or diarrhea. She does have some intermittent nausea. BUN of 18, blood glucose 134, and alkaline phosphate 140. Chest x-ray was negative for any acute cardiopulmonary process. Hospital Course Hospital Course Hospital Course: Krissy Roberson is a 45-year-old female who presented with chest pain and was admitted for unstable angina. #Chest pain #CAD ? Patient was started on nitroglycerin drip with some alleviation of chest pain. ? Cardiology consulted, s/p C on 07/10/2025 revealing severe distal left main disease. ECHO overall unremarkable. ? Dr. Whitley recommended transfer to tertiary center for, [facility] graciously accepted patient CABG. Patient will be transferred in guarded condition. #GERD ? Continue home PPI. #Obesity ? BMI 45, complicates all aspects of care. Total time spent on discharge: 33 minutes on chart review, counseling, documentation, and direct care with patient. Exam Data for Last 24 hours Vital signs and Labs for Last 24 Hours: Temp Pulse Resp BP Pulse Ox O2 Del Method 97.9 F 69 20 99/55 L 92 L Room Air 07/10/25 12:00 07/10/25 16:00 07/10/25 16:00 07/10/25 16:00 07/10/25 16:00 07/10/25 16:00 Laboratory Results - last 24 hr 07/09/25 19:03: Troponin I < 0.01 07/09/25 21:55: Troponin I < 0.01 07/10/25 04:45: WBC 10.5, RBC 4.16 L, Hgb 11.5 L, Hct 36.8 L, MCV 88.5, MCH 27.6, MCHC 31.3 L, RDW 15.4, Plt Count 354, MPV 10.8 H, Neut % (Auto) 63.9, Lymph % (Auto) 21.4, [place] % (Auto) 8.7, Eos % (Auto) 1.4, Baso % (Auto) 0.9, Neut # (Auto) 6.7, Lymph # (Auto) 2.3, [place] # (Auto) 0.9, Eos # (Auto) 0.2, Baso # (Auto) 0.1, Sodium 138, Potassium 4.1, Chloride 100, Carbon Dioxide 31 H, Anion Gap 11.1, BUN 14, Creatinine 0.80, Estimated Creat Clear 84, Estimated GFR 78, Est GFR ( Amer) 94, Glucose 111 H, Calcium 8.4, Magnesium 2.3, Total Bilirubin 0.4, AST 30, ALT 25, Alkaline Phosphatase 126, Total Protein 6.9, Albumin 3.9 D, Globulin 3.0, Albumin/Globulin Ratio 1.3, Triglycerides 92, Cholesterol 222 H, LDL Cholesterol Direct 148.90 H, VLDL Cholesterol 18, HDL Cholesterol 40, Cholesterol/HDL Ratio 5.6 H I & O for Last 24 hours: Intake & Output 07/07/25 07/08/25 07/09/25 07/10/25 23:59 23:59 23:59 23:59 Intake Total 74.125 / 74.125 537.5 / 537.5 Output Total 700 / 700 1225 / 1225 Balance -625.875 / -625.875 -687.5 / -687.5 Weight 127.488 kg 127.323 kg Constitutional Constitutional: no acute distress and obese *Routine HEENT Exam Head: Present normocephalic Eye: Present EOMI and PERRL ENT: Present mucous membranes moist *Routine Neck Exam Neck: Present supple; Absent lymphadenopathy *Routine Respiratory Exam Respiratory: Present CTA bilaterally *Routine Cardiovascular Exam Cardiovascular: Present RRR *Routine Abdominal Exam Abdominal: Present soft and normoactive bowel sounds; Absent tenderness *Routine Extremities Exam Extremities: Absent cyanosis, clubbing or edema *Routine Skin Exam Skin: Present warm; Absent rash *Routine Neurological Exam Neurological: Present alert and oriented X3 Results Data Completed and Pending Labs on day of discharge: Labs from last 24 hours 07/10/25 07/09/25 07/09/25 04:45 21:55 19:03 WBC 10.5 RBC 4.16 L Hgb 11.5 L Hct 36.8 L MCV 88.5 MCH 27.6 MCHC 31.3 L RDW 15.4 Plt Count 354 MPV 10.8 H Neut % (Auto) 63.9 Lymph % (Auto) 21.4 [place] % (Auto) 8.7 Eos % (Auto) 1.4 Baso % (Auto) 0.9 Neut # (Auto) 6.7 Lymph # (Auto) 2.3 [place] # (Auto) 0.9 Eos # (Auto) 0.2 Baso # (Auto) 0.1 Sodium 138 Potassium 4.1 Chloride 100 Carbon Dioxide 31 H Anion Gap 11.1 BUN 14 Creatinine 0.80 Estimated Creat Clear 84 Estimated GFR 78 Est GFR ( Amer) 94 Glucose 111 H Calcium 8.4 Magnesium 2.3 Total Bilirubin 0.4 AST 30 ALT 25 Alkaline Phosphatase 126 Troponin I < 0.01 < 0.01 Total Protein 6.9 Albumin 3.9 D Globulin 3.0 Albumin/Globulin Ratio 1.3 Triglycerides 92 Cholesterol 222 H LDL Cholesterol Direct 148.90 H VLDL Cholesterol 18 HDL Cholesterol 40 Cholesterol/HDL Ratio 5.6 H DS: Diagnosis Discharge Diagnosis (1) Coronary artery disease: Status: Acute Code(s): I25.10 - Atherosclerotic heart disease of hughes coronary artery without angina pectoris Qualifiers: Associated angina: with refractory angina Coronary Disease-Associated Artery/Lesion type: hughes artery [place] vs. transplanted heart: hughes heart Qualified Code(s): I25.112 - Atherosclerotic heart disease of hughes coronary artery with refractory angina pectoris (2) (HFpEF) heart failure with preserved ejection fraction: Status: Acute Code(s): I50.30 - Unspecified diastolic (congestive) heart failure (3) Diastolic dysfunction: Status: Acute Code(s): I51.89 - Other ill-defined heart diseases Meds Home Medications and Allergies Home Medications ?Medication ?Instructions ?Recorded ?Confirmed ?Type albuterol sulfate 90 mcg/actuation 2 puff inhalation Q6HP PRN SOA 04/14/24 07/09/25 History aerosol inhaler aspirin 81 mg chewable tablet 81 mg PO DAILY 04/14/24 07/09/25 History nitroglycerin 0.4 mg sublingual 0.4 mg sublingual Q5M PRN chest 08/09/24 07/09/25 Rx tablet pain #30 tabs ranolazine 500 mg tablet,extended 500 mg PO BID 10/04/24 07/09/25 History release,12 hr spironolactone 50 mg tablet 50 mg PO DAILY 11/08/24 07/09/25 History isosorbide mononitrate 120 mg 120 mg PO DAILY #90 tabs 12/03/24 07/09/25 Rx tablet,extended release 24 hr furosemide 40 mg tablet 40 mg PO DAILY #90 tabs 12/27/24 07/09/25 Rx methocarbamol 750 mg tablet 1,500 mg (2 x 750 mg) PO TID #60 01/21/25 07/09/25 Rx tabs atogepant 60 mg tablet (Qulipta) 60 mg PO DAILY #90 tabs 05/15/25 07/09/25 Rx atorvastatin 80 mg tablet 80 mg PO DAILY 05/15/25 07/09/25 History clopidogrel 75 mg tablet 75 mg PO DAILY 05/15/25 07/09/25 History escitalopram oxalate 20 mg tablet 20 mg PO DAILY 05/15/25 07/09/25 History lidocaine 5 % topical patch 1 patch topical DAILY PRN Pain, 05/15/25 07/09/25 History Moderate losartan 25 mg tablet 25 mg PO DAILY 05/15/25 07/09/25 History metoprolol tartrate 100 mg tablet 100 mg PO BID 05/15/25 07/09/25 History rimegepant 75 mg disintegrating 75 mg PO Q OTHER DAY PRN migraine 05/15/25 07/09/25 Rx tablet (Nurtec ODT) headache #30 tabs fvqqayokpbic-Yt-nayv-minerals 1 tab PO DAILY 06/10/25 07/09/25 History pantoprazole 40 mg tablet,delayed 40 mg PO DAILY #90 tabs 06/27/25 07/09/25 Rx release evolocumab 140 mg/mL subcutaneous 140 mg SQ Q2W #2 mL 07/09/25 07/09/25 Rx pen injector (Nicolasa Grijalva) New Prescriptions to Start Prescriptions: Allergies Allergy/AdvReac Type Severity Reaction Status Date / Time amlodipine (From Norvasc) Allergy Mild Unknown Verified 07/08/25 13:52 allergy reaction diphenhydramine (From AdvReac Intermediate Other Verified 07/08/25 13:52 Benadryl) Discharge Plan Disposition Patient Disposition: Xfer Short-Term Hosp Condition: Serious Discharge Order Discharge Orders: Discharge Order (Routine); Ordered 07/10/25 Ordered By: Bandar Weldon Follow up Plan Prescriptions/Medication Reconciliation: Continued ranolazine 500 mg tablet extended release 12 hr 500 mg PO BID spironolactone 50 mg tablet 50 mg PO DAILY furosemide 40 mg tablet 40 mg PO DAILY Qty: 90 3RF atorvastatin 80 mg tablet 80 mg PO DAILY clopidogrel 75 mg tablet 75 mg PO DAILY escitalopram oxalate 20 mg tablet 20 mg PO DAILY lidocaine 5 % adhesive patch,medicated 1 patch topical DAILY PRN (Reason: Pain, Moderate) Rx Instructions: leave on most painful area for up to 12 hrs losartan 25 mg tablet 25 mg PO DAILY metoprolol tartrate 100 mg tablet 100 mg PO BID Nurtec ODT 75 mg tablet,disintegrating 75 mg PO Q OTHER DAY PRN (Reason: migraine headache) Qty: 30 0RF Qulipta 60 mg tablet 60 mg PO DAILY Qty: 90 3RF methocarbamol 750 mg tablet 1,500 mg PO TID Qty: 60 0RF gvsmrhfszmwn-Or-orpp-minerals Tablet 1 tab PO DAILY nitroglycerin 0.4 mg tablet, sublingual 0.4 mg sublingual Q5M PRN (Reason: chest pain) Qty: 30 2RF Rx Instructions: do not exceed 3 doses per episode isosorbide mononitrate 120 mg tablet extended release 24 hr 120 mg PO DAILY Qty: 90 1RF pantoprazole 40 mg tablet,delayed release (DR/EC) 40 mg PO DAILY Qty: 90 1RF Repatha SureClick 140 mg/mL pen injector 140 mg SQ Q2W Qty: 2 4RF aspirin 81 mg Tablet,Chewable 81 mg PO DAILY albuterol sulfate 90 mcg/actuation HFA aerosol inhaler 2 puff INHALATION Q6HP PRN (Reason: SOA) Problem Reconciliation Problems Reviewed?: Yes Patient Discharge Instructions Print Language: Kazakh Providers Primary Care Provider: Deepti Prince Admit Provider: Bandar Weldon Attending Provider: Bandar Weldon
[2025-07-10] MEDS: PRENATAL MULTIVITAMIN W/IRON 1 EACH PO (18:04)
--- NOTE | 2025-07-10 18:15 | PC.NURSE ---
2 mL of air removed from radial armband. Site clean, dry, and intact. Patient tolerated well. Continuation of care plan.
--- NOTE | 2025-07-10 18:24 | PC.NURSE ---
Patient complains of 4/10 chest tenderness and tightness at this time. Ricardo Ordonez NP notified. New order received. Refer to NOV. Per URIEL Silva if Morphine does not help patients pain, we will start back Nitroglycerin drip. Continuation of care plan.
[2025-07-10] MEDS: MORPHINE 2MG/ML SYRINGE 2 MG IV (18:28)
--- NOTE | 2025-07-10 18:30 | PC.NURSE ---
2 mL of air removed from radial armband. Site clean, dry, and intact. Patient tolerated well. Continuation of care plan.
--- NOTE | 2025-07-10 18:45 | PC.NURSE ---
2 mL of air removed from radial armband. Site clean, dry, and intact. Patient tolerated well. Continuation of care plan.
--- NOTE | 2025-07-10 19:00 | PC.NURSE ---
2 mL of air removed from radial armband. Site clean, dry, and intact. Patient tolerated well. Continuation of care plan.
[2025-07-10 19:30] LABS: Chloride 99 mmol/L (98-107); Potassium 4.4 mmoL/L (3.5-5.1); Sodium 134 mmol/L (136-145)
[2025-07-10 19:33] LABS: Anion Gap 10.4 mEq/L (5-15); Blood Urea Nitrogen 17 mg/dl (7-17); Calcium 8.4 mg/dl (8.4-10.2); Carbon Dioxide 29 mmol/L (22.0-30.0); Creatinine Clearance Estimated 84 mL/min (50-200); Creatinine,Serum 0.80 mg/dl (0.52-1.04); Estimated Glomerular Filt Rate 78 ml/min (>60); GFR (African American) 94 ML/MIN (>60); Glucose 95 mg/dl (74-100)
[2025-07-10] MEDS: PANTOPRAZOLE 40MG TABLET 40 MG PO (20:54)
[2025-07-10] MEDS: ATORVASTATIN 40MG TABLET 80 MG PO (20:56)
--- NOTE | 2025-07-10 21:15 | PC.NURSE ---
Contacted [facility] for an update on a room number and pt is still on waiting list
--- NOTE | 2025-07-10 22:30 | PC.NURSE ---
Addendum entered by Lesly Carrasquillo RN 07/10/25 23:54: [facility] called to get an update on pt. No bed assignment at this time. Original Note:
--- NOTE | 2025-07-10 23:15 | PC.NURSE ---
Radial band removed at approximately 2000
[2025-07-11] VITALS (19 sets, daily range): BP systolic 90–142; BP diastolic 43–78; PULSE 61–86; RESP 14–23; TEMP 36.3–36.6; O2SAT 88–97; BMI 45.3
[2025-07-11 06:13] LABS: Hematocrit 36.9 % (37.0-47.0); Hemoglobin 11.1 g/dL (12.2-16.2); Immature Granulocytes % 3.9 %; Mean Corpuscular HGB Conc 30.1 g/dL (31.8-35.4); Mean Corpuscular Hemoglobin 27.2 pg (27.0-31.2); Mean Corpuscular Volume 90.4 fl (81-99); Nucleated Red Blood Cells % 0 %; Platelet Count 362 K/mm3 (142-424); Red Blood Count 4.08 M/mm3 (4.20-5.40); Red Cell Distribution Width-SD 50.6 fL; White Blood Count 10.4 K/mm3 (4.8-10.8)
[2025-07-11 06:39] LABS: Albumin Level 3.8 g/dl (3.5-5.0); Chloride 99 mmol/L (98-107); Potassium 4.3 mmoL/L (3.5-5.1); Sodium 135 mmol/L (136-145)
[2025-07-11 06:41] LABS: Alanine Aminotransferase 23 U/L (12-78); Aspartate Amino Transferase 42 U/L (14-36); Blood Urea Nitrogen 16 mg/dl (7-17); Creatinine Clearance Estimated 84 mL/min (50-200); Creatinine,Serum 0.80 mg/dl (0.52-1.04); Estimated Glomerular Filt Rate 78 ml/min (>60); GFR (African American) 94 ML/MIN (>60)
[2025-07-11 06:42] LABS: Albumin/Globulin Ratio 1.3 (1.1-1.8); Alkaline Phosphatase 116 U/L (38-126); Anion Gap 12.3 mEq/L (5-15); Bilirubin,Total 0.5 mg/dl (0.2-1.3); Calcium 8.4 mg/dl (8.4-10.2); Carbon Dioxide 28 mmol/L (22.0-30.0); Globulin 3.0 g/dL (1.3-3.2); Glucose 87 mg/dl (74-100); Magnesium 2.3 mg/dl (1.6-2.3); Total Protein,Serum 6.8 g/dl (6.3-8.2)
[2025-07-11] MEDS: ACETAMINOPHEN 325MG TAB 650 MG PO (07:34)
[2025-07-11] MEDS: RANOLAZINE 500MG ER TABLET 500 MG PO (08:13)
[2025-07-11] MEDS: CLOPIDOGREL 75MG TAB 75 MG PO (08:13)
[2025-07-11] MEDS: ASPIRIN 81MG CHEWABLE TABLET 81 MG PO (08:13)
[2025-07-11] MEDS: ESCITALOPRAM 20MG TABLET 20 MG PO (08:13)
--- NOTE | 2025-07-11 08:16 | PC.NURSE ---
Called Hospitalist about giving morning meds with her B/P being on the low side this morning (), he advised us to hold B/P meds and any meds that can lower B/P this morning.
[2025-07-11] MEDS: HYDROCODONE/APAP 5/325 MG TABLET 1 TAB PO (11:54)
[2025-07-11] MEDS: IOPAMIDOL-370 (76%);100ML BOTTLE 90 ML IV (12:23)
--- NOTE | 2025-07-11 13:26 | PC.NURSE ---
RECEIVED REPORT FROM Roberth PARKER RN
--- NOTE | 2025-07-11 13:29 | PC.NURSE ---
report given to Jelena Lentz RN.
--- NOTE | 2025-07-11 14:10 | PC.NURSE ---
CALLED AND STATED PT HAS A BED. GOING TO [facility] BED 124 NUMBER FOR REPORT IS [phone]
--- NOTE | 2025-07-11 14:19 | PC.NURSE ---
CALLED REPORT TO KYLEIGH MCCANN AT
--- NOTE | 2025-07-11 14:25 | PC.NURSE ---
[facility] AWARE OF TRANSFER
== END 2025-07-11 16:26 | disposition short-term general hospital (02) ==
LOC: ER 17:28 → ICU 17:33 → 2ND 07-11 13:27
PROVIDERS: Internal Medicine; Physician Assistant; Admitting Provider Student in an Organized Health Care Education/Training Program; Emergency Provider Emergency Medicine; PCP Nurse Practitioner Family; Visit Provider Student in an Organized Health Care Education/Training Program
PROC: 4A023N7 Measurement of Cardiac Sampling and Pressure, Left Heart, Percutaneous Approach (ICD-10-PCS; CPT 93452; principal; 2025-07-10 16:35)
DX: I25.110 Atherosclerotic heart disease of native coronary artery with unstable angina pectoris (principal); I50.32 Chronic diastolic (congestive) heart failure; Z68.42 Body mass index [BMI] 45.0-49.9, adult; Z95.5 Presence of coronary angioplasty implant and graft; I11.0 Hypertensive heart disease with heart failure; J45.909 Unspecified asthma, uncomplicated; R73.03 Prediabetes; E78.5 Hyperlipidemia, unspecified; G47.33 Obstructive sleep apnea (adult) (pediatric); K21.9 Gastro-esophageal reflux disease without esophagitis; E66.9 Obesity, unspecified; Z79.01 Long term (current) use of anticoagulants; Z79.02 Long term (current) use of antithrombotics/antiplatelets; Z79.82 Long term (current) use of aspirin; Z86.16 Personal history of COVID-19; G43.909 Migraine, unspecified, not intractable, without status migrainosus
CPT/HCPCS: 36415; 71045; 80048; 80053; 80061; 83690; 83735; 83880; 84484; 84703; 85025; 85378; 85610; 93005; 93306; 99152; 99285; C1725; C1769; J1450; J1644; J1650; J1939; J2003; J2250; J2270; J2405; J3010; J7040; Q9957; Q9967

== ENCOUNTER → 2025-08-22 09:47 | Outpatient (RCR) | payer BC, SELFPAY | LOC: CR 09:47 | PROVIDERS: PCP Nurse Practitioner Family; Visit Provider Thoracic Surgery (Cardiothoracic Vascular Surgery) | DX: I50.30 Unspecified diastolic (congestive) heart failure (principal); I25.118 Atherosclerotic heart disease of native coronary artery with other forms of angina pectoris | CPT/HCPCS: 93798 ==